=== PATIENT | male | born 1980 | race Caucasian/White ===

== ENCOUNTER 2018-04-28 19:27 | Inpatient (IN) | payer OTHER ==
[2018-04-28] MEDS ORDERED: SODIUM CHLORIDE 0.9% 1,000 ML IV STA (20:05)
[2018-04-28] MEDS ORDERED: LORazepam 2 MG/ML INJ IV PRN (20:08)
[2018-04-28] MEDS ORDERED: THIAMINE 100 MG/ML 2 ML VIAL IM STA (20:08)
[2018-04-28] MEDS: THIAMINE 100 MG TAB PO SCH (20:18)
[2018-04-28] MEDS: LORazepam 2 MG/ML INJ IV PRN ×3 (20:19→22:20)
[2018-04-28 20:29] LABS: Basophils % (A) 1 %; Eosinophils % (A) 2 %; HCT 45.3 % (39.0-53.0); HGB 15.3 gm/dL (13.0-17.5); Lymphocytes # (A) 1.2 k/uL (1.0-4.8); Lymphocytes % (A) 32 %; MCH 34.4 pg (25.0-35.0); MCHC 33.8 g/dL (31.0-37.0); MCV 101.6 fL (80.0-100.0); Macrocytosis Slight; Monocytes # (A) 0.2 k/uL (0-1.0); Monocytes % (A) 5 %; Neutrophils # (A) 2.3 k/uL (1.3-7.7); Neutrophils % (A) 59 %; Platelet Count 53 k/uL (150-450); RBC 4.46 m/uL (4.30-5.90); RDW 15.5 % (11.5-15.5); WBC 3.9 k/uL (3.8-10.6)
[2018-04-28 20:30] LABS: Basophils # (A) 0.1 k/uL (0-0.2); Eosinophils # (A) 0.1 k/uL (0-0.7)
[2018-04-28 20:38] LABS: INR 0.9 (<1.2); Prothrombin Time 10.2 sec (9.0-12.0)
--- NOTE | 2018-04-28 20:47 | ED ---
Alcohol HPI - General Chief Complaint: Alcohol Stated Complaint: Alcohol Withdrawls Time Seen by Provider: 04/28/18 19:47 Source: patient, family Mode of arrival: ambulatory Limitations: no limitations - History of Present Illness Initial Comments: Patient is a 38-year-old male presenting for alcohol withdrawal. The patient states that he has been drinking for about 20 years and that he drinks a fifth and pint daily. He states that his last drink was about 13 hours ago and he has been shaking and having some shortness of breath as well as nausea. He states that he has had a seizure before and then put in ICU but never been intubated. - Related Data Home Medications Medication Instructions Recorded Confirmed No Known Home Medications 04/28/18 04/28/18 Allergies Allergy/AdvReac Type Severity Reaction Status Date / Time No Known Allergies Allergy Verified 04/28/18 19:43 Review of Systems ROS Statement: Those systems with pertinent positive or pertinent negative responses have been documented in the HPI. Constitutional: Negative for chills, fatigue and fever. HENT: Negative for congestion. Respiratory: Negative for chest tightness, shortness of breath and wheezing. Negative for cough Cardiovascular: Negative for chest pain and palpitations. Positive for shortness of breath Gastrointestinal: Negative for abdominal pain. Negative for abdominal distention , diarrhea, nausea and vomiting. Genitourinary: Negative for dysuria. Musculoskeletal: Negative for back pain, neck pain and neck stiffness. Skin: Negative for color change. Neurological: Negative for dizziness, speech difficulty, weakness and light- headedness. Positive for tremors Psychiatric/Behavioral: Negative for agitation and confusion. Negative for anxiety ROS Other: All systems not noted in ROS Statement are negative. Past Medical History Past Medical History: No Reported History History of Any Multi-Drug Resistant Organisms: None Reported Past Surgical History: Appendectomy, Tonsillectomy Past Psychological History: No Psychological Hx Reported Smoking Status: Never smoker Past Alcohol Use History: Abuse Past Drug Use History: None Reported General Exam - General Exam Comments Initial Comments: Constitutional: Pt is oriented to person, place, and time. Pt appears well- developed and well-nourished. No distress. HENT: Head: Normocephalic and atraumatic. Eyes: EOM are normal. Neck: Normal range of motion. Neck supple. Cardiovascular: Tachycardia, regular rhythm, S1 normal, S2 normal and normal heart sounds. Exam reveals no gallop and no friction rub. No murmur heard. Pulmonary/Chest: Effort normal and breath sounds normal. No tachypnea and no bradypnea. No respiratory distress. No wheezes or rales noted. Abdominal: Soft. Bowel sounds are normal. Pt exhibits no shifting dullness, no distension, no pulsatile liver, no fluid wave, no abdominal bruit and no ascites. There is no tenderness. There is no rigidity, no rebound, no guarding, no tenderness at McBurney's point and negative Burns's sign. Musculoskeletal: Normal range of motion. Neurological: Pt is alert and oriented to person, place, and time. No cranial nerve deficit. Patient is tremulous Skin: Skin is warm and dry. No rash noted. Pt is not diaphoretic. No erythema. No pallor. Psychiatric: Pt has a normal mood and affect. Pt behavior is normal. Thought content normal. Limitations: no limitations Course Vital Signs 04/28/18 04/28/18 04/28/18 19:28 20:57 21:01 Temperature 98.5 F Pulse Rate 77 170 H 163 H Respiratory 20 18 Rate Blood Pressure 122/84 110/80 116/102 O2 Sat by Pulse 95 94 L Oximetry 04/28/18 04/28/18 04/28/18 21:15 22:21 22:37 Temperature Pulse Rate 158 H 160 H 158 H Respiratory 18 18 Rate Blood Pressure 116/102 104/79 113/92 O2 Sat by Pulse 94 L 95 Oximetry 04/28/18 04/28/18 22:56 23:15 Temperature Pulse Rate 170 H Respiratory 24 19 Rate Blood Pressure 98/81 O2 Sat by Pulse 91 L Oximetry - Reevaluation(s) Reevaluation #1: 04/28/18 20:46 EKG shows atrial fibrillation with RVR. Heart rate is 183, QRS 92, QTC 439. There are no significant ST depressions or elevations. Reevaluation #2: 04/29/18 00:13 -discussed the case with admitting physician bedside and it was recommended that is unclear be increased. His also discussed with administrative charge nurse and it was agreeable that the patient could be admitted to [facility] and did not need ICU admission as his blood pressure is stable. Medical Decision Making - Medical Decision Making Case is discussed originally with cardiology, , and it was recommended that the patient not be cardioverted as it is unclear when the A. fib with RVR initiated. 3 doses of metoprolol were given and patient continued to remain in atrial fibrillation with RVR. Therefore patient was put on Cardizem drip. Patient continued to remain in A. fib with RVR but case is discussed with admitting physician, Dr. Foster and it was agreed that rate of Cardizem could be increased as well. At the time of disposition, the withdrawal type symptoms had improved in that he was no longer tremulous. - Lab Data Result diagrams: 04/28/18 20:04 04/28/18 20:04 Lab Results 04/28/18 04/28/18 04/28/18 Range/Units 20:04 20:04 20:04 WBC 3.9 (3.8-10.6) k/uL RBC 4.46 (4.30-5.90) m/uL Hgb 15.3 (13.0-17.5) gm/dL Hct 45.3 (39.0-53.0) % MCV 101.6 H (80.0-100.0) fL MCH 34.4 (25.0-35.0) pg MCHC 33.8 (31.0-37.0) g/dL RDW 15.5 (11.5-15.5) % Plt Count 53 L (150-450) k/uL Neutrophils % 59 % Lymphocytes % 32 % Monocytes % 5 % Eosinophils % 2 % Basophils % 1 % Neutrophils # 2.3 (1.3-7.7) k/uL Lymphocytes # 1.2 (1.0-4.8) k/uL Monocytes # 0.2 (0-1.0) k/uL Eosinophils # 0.1 (0-0.7) k/uL Basophils # 0.1 (0-0.2) k/uL Macrocytosis Slight PT 10.2 (9.0-12.0) sec INR 0.9 (<1.2) Sodium 143 (137-145) mmol/L Potassium 4.5 (3.5-5.1) mmol/L Chloride 108 H (98-107) mmol/L Carbon Dioxide 18 L (22-30) mmol/L Anion Gap 17 mmol/L BUN 19 (9-20) mg/dL Creatinine 0.93 (0.66-1.25) mg/dL Est GFR (CKD-EPI)AfAm >90 (>60 ml/min/1.73 sqM) Est GFR (CKD-EPI)NonAf >90 (>60 ml/min/1.73 sqM) Glucose 152 H (74-99) mg/dL Calcium 8.3 L (8.4-10.2) mg/dL Magnesium 1.5 L (1.6-2.3) mg/dL Total Bilirubin 2.0 H (0.2-1.3) mg/dL AST 590 H (17-59) U/L ALT 358 H (21-72) U/L Alkaline Phosphatase 106 (38-126) U/L Troponin I (0.000-0.034) ng/mL Total Protein 7.9 (6.3-8.2) g/dL Albumin 4.1 (3.5-5.0) g/dL Lipase 345 H (23-300) U/L Serum Alcohol 366 H* mg/dL 04/28/18 Range/Units 20:04 WBC (3.8-10.6) k/uL RBC (4.30-5.90) m/uL Hgb (13.0-17.5) gm/dL Hct (39.0-53.0) % MCV (80.0-100.0) fL MCH (25.0-35.0) pg MCHC (31.0-37.0) g/dL RDW (11.5-15.5) % Plt Count (150-450) k/uL Neutrophils % % Lymphocytes % % Monocytes % % Eosinophils % % Basophils % % Neutrophils # (1.3-7.7) k/uL Lymphocytes # (1.0-4.8) k/uL Monocytes # (0-1.0) k/uL Eosinophils # (0-0.7) k/uL Basophils # (0-0.2) k/uL Macrocytosis PT (9.0-12.0) sec INR (<1.2) Sodium (137-145) mmol/L Potassium (3.5-5.1) mmol/L Chloride (98-107) mmol/L Carbon Dioxide (22-30) mmol/L Anion Gap mmol/L BUN (9-20) mg/dL Creatinine (0.66-1.25) mg/dL Est GFR (CKD-EPI)AfAm (>60 ml/min/1.73 sqM) Est GFR (CKD-EPI)NonAf (>60 ml/min/1.73 sqM) Glucose (74-99) mg/dL Calcium (8.4-10.2) mg/dL Magnesium (1.6-2.3) mg/dL Total Bilirubin (0.2-1.3) mg/dL AST (17-59) U/L ALT (21-72) U/L Alkaline Phosphatase (38-126) U/L Troponin I 0.040 H* (0.000-0.034) ng/mL Total Protein (6.3-8.2) g/dL Albumin (3.5-5.0) g/dL Lipase (23-300) U/L Serum Alcohol mg/dL Disposition Clinical Impression: Alcohol withdrawal Disposition: ADMITTED IP TO THIS HOSP Condition: Fair Instructions: Alcohol Withdrawal (ED) Referrals: None,Stated [Primary Care Provider] - 1-2 days Decision to Admit Reason: Admit from EC Decision Date: 04/29/18 Decision Time: 00:16
[2018-04-28] MEDS: METOPROLOL TARTRATE 5 MG/5 ML VIAL IVP SCH (20:54)
[2018-04-28 20:59] LABS: ALT 358 U/L (21-72); AST 590 U/L (17-59); Albumin 4.1 g/dL (3.5-5.0); Alkaline Phosphatase 106 U/L (38-126); Anion Gap 17 mmol/L; Blood Urea Nitrogen 19 mg/dL (9-20); Calcium 8.3 mg/dL (8.4-10.2); Carbon Dioxide 18 mmol/L (22-30); Chloride 108 mmol/L (98-107); Glucose 152 mg/dL (74-99); Lipase 345 U/L (23-300); Magnesium 1.5 mg/dL (1.6-2.3); Potassium 4.5 mmol/L (3.5-5.1); Sodium 143 mmol/L (137-145); Total Protein 7.9 g/dL (6.3-8.2)
[2018-04-28] MEDS ORDERED: METOPROLOL TARTRATE 5 MG/5 ML VIAL IVP PRN (21:13)
[2018-04-28 21:21] LABS: Alcohol 366 mg/dL
[2018-04-28] MEDS: DILTIAZEM 50 MG in SODIUM CHLORIDE 0.9% 40 ML IV SCH (22:14)
[2018-04-28] MEDS: DILTIAZEM DRIP BOLUS FROM BAG 1 MG SOLN IV ONE (22:14)
[2018-04-28] MEDS ORDERED: SODIUM CHLORIDE 0.9% 1,000 ML IV ONE (23:02)
[2018-04-28] MEDS ORDERED: ASPIRIN 81 MG PO STA (23:52)
[2018-04-29] MEDS: DILTIAZEM 50 MG in SODIUM CHLORIDE 0.9% 40 ML IV SCH ×7 (00:02→21:35)
[2018-04-29] MEDS: LORazepam 2 MG/ML INJ IV PRN ×12 (00:07→14:08)
[2018-04-29] MEDS ORDERED: NITROGLYCERIN SL TABS 0.4 MG TAB SUBLINGUAL PRN (00:17)
[2018-04-29 01:14] LABS: Creatine Kinase MB 8.7 ng/mL (0.0-2.4)
[2018-04-29 01:19] LABS: Troponin I 0.037 ng/mL (0.000-0.034)
[2018-04-29] MEDS: METOPROLOL TARTRATE 5 MG/5 ML VIAL IVP SCH ×3 (01:33→16:48)
[2018-04-29] MEDS: DILTIAZEM DRIP BOLUS FROM BAG 1 MG SOLN IV ONE (01:36)
--- NOTE | 2018-04-29 02:01 | P.HPIM ---
History of Present Illness H&P Date: 04/29/18 The patient is a 38 yo M with a PMH of EtOH abuse (hospitalized w/ DTs in 2017 at a hospital in [place] w/ withdrawal seizures) presented to the ED due to chest pain, SOB, palpitations, and tremors. The patient notes that he had been drinking 1 pint and a fifth of Vodka daily for the past month after his friend committed suicide. He notes that after his previous hospitalization in 2017, he was sober for 2 months before his friends . His last drink was 14 hours prior to presentation and he then became tremulous and began hallucinating with subsequent chest pain, substernal, 10/31, with radiation to L arm, worsened with exertion, with associated SOB and palpitations. The patient notes that he had similar symptoms during his previous DTs episode and was noted to be in A-fib though was never stared on anticoagulation since it was deemed to be a single episode secondary to DTs. The patient endorsed a cough for the past 1 week with some greenish phelgm but otherwise an unlimited ET and denied orthopnea, PND, fever, chills, nausea, vomiting, diarrhea, recent travel , or sick contacts. In the ED, the patient had a comprehensive workup. EKG showed A-fib with RVR @ 183 bpm; Troponin 0.040; Lipase 345; T Bili 2.0; AST 590; ALT 358; and platelets 53. Review of Systems Pertinent positives and negatives as discussed in HPI, a complete review of systems was performed and all other systems are negative. Past Medical History Past Medical History: No Reported History History of Any Multi-Drug Resistant Organisms: None Reported Past Surgical History: Appendectomy, Tonsillectomy Past Psychological History: No Psychological Hx Reported Smoking Status: Never smoker Past Alcohol Use History: Abuse Past Drug Use History: None Reported Medications and Allergies Home Medications Medication Instructions Recorded Confirmed Type No Known Home Medications 04/28/18 04/28/18 History Allergies Allergy/AdvReac Type Severity Reaction Status Date / Time No Known Allergies Allergy Verified 04/28/18 19:43 Physical Exam Vitals: Vital Signs Temp Pulse Resp BP Pulse Ox 04/28/18 23:15 19 04/28/18 22:56 170 H 24 98/81 91 L 04/28/18 22:37 158 H 18 113/92 95 04/28/18 22:21 160 H 104/79 04/28/18 21:15 158 H 18 116/102 94 L 04/28/18 21:01 163 H 116/102 04/28/18 20:57 170 H 18 110/80 94 L 04/28/18 19:28 98.5 F 77 20 122/84 95 Intake and Output 04/28/18 04/28/18 04/29/18 14:59 22:59 06:59 Intake Total 18 Balance 18 Intake: Intake, IV Titration 18 Amount Diltiazem 50 mg In Sodium 18 Chloride 0.9% 40 ml @ Per Protocol IV .Q0M [facility] Rx#:[id number] Other: Weight 121.109 kg General: [non toxic], [no distress], [appears at stated age], [obese], tremulous Derm: [no unusual rashes/lesions] [no unusual ecchymoses], [warm], [dry] Head: [atraumatic], [normocephalic], [symmetric] Eyes: [EOMI], [no lid lag], [anicteric sclera], [pupils equal round reactive to light] ENT: [Nose and ears atraumatic], [no thrush], [no pharyngeal erythema] Neck: [No thyromegaly], [no cervical lymphadenopathy], [trachea midline], [ supple] Mouth: [no lip lesion], [mucus membranes moist] Cardiovascular: [S1S2 wnl, irregularly irregular tachycardia], [no murmur], [ positive posterior tibial pulse bilateral], [no edema], [capillary refill less than 2 seconds] Lungs: [CTA bilateral], [no rhonchi, no rales] , [no accessory muscle use] Abdominal: [soft], [ nontender to palpation], [no guarding], [no appreciable organomegaly], [normal bowel sounds] Ext: [no gross muscle atrophy], [muscle strength 5 out of 5 in all 4 extremities grossly], [no contractures], 1+ LE edema to knees fransico Neuro: [ CN II-XI grossly intact], [light touch intact all 4 extremities], out- stretched hand tremor, mild tongue fasciculations Psych: [Alert], [oriented], [appropriate affect] Results CBC & Chem 7: 04/28/18 20:04 04/28/18 20:04 Labs: Abnormal Lab Results - Last 24 Hours (Table) 04/28/18 04/28/18 04/28/18 Range/Units 20:04 20:04 20:04 MCV 101.6 H (80.0-100.0) fL Plt Count 53 L (150-450) k/uL Chloride 108 H (98-107) mmol/L Carbon Dioxide 18 L (22-30) mmol/L Glucose 152 H (74-99) mg/dL Calcium 8.3 L (8.4-10.2) mg/dL Magnesium 1.5 L (1.6-2.3) mg/dL Total Bilirubin 2.0 H (0.2-1.3) mg/dL AST 590 H (17-59) U/L ALT 358 H (21-72) U/L Total Creatine Kinase (55-170) U/L CK-MB (CK-2) (0.0-2.4) ng/mL Troponin I 0.040 H* (0.000-0.034) ng/mL Lipase 345 H (23-300) U/L Serum Alcohol 366 H* mg/dL 04/29/18 Range/Units 00:20 MCV (80.0-100.0) fL Plt Count (150-450) k/uL Chloride (98-107) mmol/L Carbon Dioxide (22-30) mmol/L Glucose (74-99) mg/dL Calcium (8.4-10.2) mg/dL Magnesium (1.6-2.3) mg/dL Total Bilirubin (0.2-1.3) mg/dL AST (17-59) U/L ALT (21-72) U/L Total Creatine Kinase 345 H (55-170) U/L CK-MB (CK-2) 8.7 H (0.0-2.4) ng/mL Troponin I 0.037 H* (0.000-0.034) ng/mL Lipase (23-300) U/L Serum Alcohol mg/dL Assessment and Plan Plan: A-fib with RVR -Received Lopressor and Cardizem IVP in the ED -C/w Cardizem infusion Chest pain w/ SOB -Likely secondary to RVR -Trend troponins -Cardiology consult -Telemetry monitoring Alcohol withdrawal with deranged LFTs -CIWA protocol -Thiamine, Folate, MV -Aspiration, Seizure, Fall precautions -RUQ US Hypomagnasemia -Will replace and monitor Thrombocytopenia -Likely due to alcohol abuse -Will monitor DVT//GI prophylaxis - IPCDs - No indication for GI prophylaxis The patient is admitted with an anticipated greater than 2 midnight stay for evaluation of Afib w/ RVR CODE STATUS:Full-code Discussed with: Patient Anticipated discharge date: 05/02/[address]: Home A total of 65 minutes was spent on the care of this complex patient more than 50 % of the time was spent in counseling and care coordination.
[2018-04-29] MEDS: MAGNESIUM SULFATE-D5W PMX 1 GM in DEXTROSE/WATER 1 100ML.BAG IVPB SCH ×4 (02:36→16:43)
[2018-04-29 04:00] LABS: Appearance,Urine Clear (Clear); Bilirubin,Urine 2+ (Negative); Blood,Urine Moderate (Negative); Color,Urine Dark Brown; Glucose,Urine (UA) Negative (Negative); Hyaline Casts,Urine 4 /lpf (0-2); Ketones,Urine Negative (Negative); Leukocyte Esterase,Urine Negative (Negative); Mucus,Urine Many /hpf; Nitrite,Urine Negative (Negative); Protein,Urine 4+ (Negative); RBC,Urine <1 /hpf (0-5); Specific Gravity,Urine 1.037 (1.001-1.035); Squamous Epithelial Cell,Urine 1 /hpf (0-4); WBC,Urine 1 /hpf (0-5)
[2018-04-29] MEDS: MULTIVITAMINS, THERA 1 EACH TAB PO SCH (07:45)
[2018-04-29] MEDS: FOLIC ACID 1 MG TAB PO SCH (07:46)
[2018-04-29] MEDS: THIAMINE 100 MG TAB PO SCH ×2 (07:46→16:44)
[2018-04-29] MEDS: METOPROLOL TARTRATE 25 MG TAB PO SCH ×2 (07:46→21:34)
--- NOTE | 2018-04-29 08:12 | US ---
EXAMINATION TYPE: US abdomen limited DATE OF EXAM: 04/29/2018 COMPARISON: NONE CLINICAL HISTORY: RUQ US, deranged LFTs. h/o pancreatitis and alcoholism, RUQ pain EXAM MEASUREMENTS: Liver Length: 24.1 cm Gallbladder Wall: 0.5 cm CBD: 0.6 cm Right Kidney: 15.3 x 6.3 x 5.6 cm Pancreas: limited views were obscured by bowel gas Liver: grossly enlarged and heterogeneous, difficult to penetrate Gallbladder: possible sludge noted with wall thickening Evidence for sonographic Burns's sign: no CBD: wnl Right Kidney: large in size The pancreas is poorly visualized. The liver is enlarged measuring 24 cm. There is no biliary dilatation. There is sludge within the gallbladder. The gallbladder wall measures 5 mm. This common hepatic duct measures 6 mm. There is no sonographic Burns's sign. The right kidney is unremarkable. IMPRESSION: 1. HEPATOMEGALY AND PROBABLE FATTY INFILTRATION OF THE LIVER. 2. SLUDGE WITHIN THE GALLBLADDER WITH A THICKENED GALLBLADDER WALL.
[2018-04-29 08:55] LABS: HCT 40.2 % (39.0-53.0); HGB 13.2 gm/dL (13.0-17.5); MCH 34.5 pg (25.0-35.0); MCHC 32.7 g/dL (31.0-37.0); MCV 105.4 fL (80.0-100.0); Macrocytosis Moderate; Mean Platelet Volume 10.5; RBC 3.82 m/uL (4.30-5.90); RDW 15.6 % (11.5-15.5); WBC 3.7 k/uL (3.8-10.6)
[2018-04-29 08:56] LABS: ALT 285 U/L (21-72); AST 336 U/L (17-59); Albumin 3.5 g/dL (3.5-5.0); Alkaline Phosphatase 87 U/L (38-126); Anion Gap 13 mmol/L; Blood Urea Nitrogen 17 mg/dL (9-20); Calcium 7.9 mg/dL (8.4-10.2); Carbon Dioxide 20 mmol/L (22-30); Chloride 110 mmol/L (98-107); Glucose 89 mg/dL (74-99); Magnesium 1.8 mg/dL (1.6-2.3); Platelet Count 45 k/uL (150-450); Sodium 143 mmol/L (137-145); Total Bilirubin 2.2 mg/dL (0.2-1.3)
[2018-04-29 09:33] LABS: Troponin I 0.035 ng/mL (0.000-0.034)
[2018-04-29 11:33] LABS: Glucose,Whole Blood 95 mg/dL (75-99)
[2018-04-29] MEDS ORDERED: PROPOFOL 10 MG/ML 20 ML VIAL IV ONE (12:45)
[2018-04-29] MEDS ORDERED: SUCCINYLCHOLINE CHLORIDE VIAL 200 MG/10 ML VIAL IV ONE (12:45)
--- NOTE | 2018-04-29 13:13 | P.PN ---
Progress Note - Text Progress Note Date: 04/29/18 Patient is continuing to show signs of alcohol withdrawal, is severely shaking and requiring Ativan every hour. He continues to have shortness of breath and palpitations as well. No chest pain. No dizziness. No nausea or vomiting. Despite being on Cardizem 20 mg IV every hour his heart is continues to be elevated. I called Dr. Barahona and asked for the patient to be transferred to ICU for possible Ativan drip.
--- NOTE | 2018-04-29 13:16 | XR ---
EXAMINATION TYPE: XR chest 1V portable DATE OF EXAM: 04/29/2018 HISTORY: et tube placement. REFERENCE: NONE. FINDINGS: The patient has been intubated. ET tube tip is 7.6 cm from the jose. An NG tube is been p assed and its tip is in the stomach. The heart appears enlarged. There is vascular congestion. I could not exclude mild edema. There is in creased opacity at both lung bases. This may BE due to overlying soft tissues. It would be difficult to exclude bibasilar airspace disease. It would be difficult to exclude small effusions. IMPRESSION: 1. SATISFACTORY ET TUBE PLACEMENT. 2. CARDIOMEGALY. 3. VASCULAR CONGESTION. 4. I COULD NOT EXCLUDE SOME DEGREE OF CONGESTIVE HEART FAILURE. 5. I CANNOT EXCLUDE BIBASILAR INFILTRATES. 6. I CANNOT EXCLUDE SMALL, BILATERAL EFFUSIONS.
[2018-04-29] MEDS ORDERED: CISATRACURIUM 2 MG/ML 5 ML VIAL IV ONE ×3 (13:39→14:49)
[2018-04-29 13:56] LABS: ABG Base Excess -2.9 mmol/L; ABG HCO3 24 mmol/L (21-25); ABG Oxygen Saturation 94.9 % (94-97); ABG PCO2 55 mmHg (35-45); ABG PH 7.25 (7.35-7.45); ABG PO2 92 mmHg (83-108); ABG TCO2 26 mmol/L (19-24)
[2018-04-29] MEDS ORDERED: DILTIAZEM DRIP BOLUS FROM BAG 1 MG SOLN IV ONE (14:12)
[2018-04-29] MEDS: fentaNYL (PF) 2,500 MCG in SODIUM CHLORIDE 0.9% 200 ML IV SCH (14:25)
[2018-04-29] MEDS: DIGOXIN 250 MCG/ML 2 ML AMP IVP SCH ×2 (14:41→18:41)
--- NOTE | 2018-04-29 14:43 | XR ---
EXAMINATION TYPE: XR chest 1V portable DATE OF EXAM: 04/29/2018 COMPARISON: 04/29/2018 HISTORY: Short of breath TECHNIQUE: Single frontal view of the chest is obtained. FINDINGS: Heart is enlarged. Endotracheal tube is 4 cm from the jose. Nasogastric tube appears in good position. There is pulmonary vascular congestion. There are chest leads. IMPRESSION: Congestive heart failure with pulmonary edema and basilar pulmonary infiltrates unchange d compared to exam 12 hours ago.
[2018-04-29] MEDS ORDERED: FUROSEMIDE 10 MG/ML 4 ML VIAL IV STA (14:50)
[2018-04-29] MEDS ORDERED: LORazepam 2 MG/ML INJ IV STA (14:59)
[2018-04-29] MEDS: CISATRACURIUM 200 MG in SODIUM CHLORIDE 0.9% 180 ML IV SCH (15:00)
[2018-04-29] MEDS: ARTIFICIAL TEARS-HYPROMELLOSE DROPS 15 ML BTL BOTH EYES SCH ×2 (15:32→21:34)
[2018-04-29] MEDS: PROPOFOL 1,000 MG in EMPTY BAG 1 BAG IV SCH ×6 (15:35→23:55)
[2018-04-29] MEDS: SODIUM CHLORIDE 0.9% 1,000 ML IV SCH (15:51)
[2018-04-29] MEDS ORDERED: NALOXONE 0.4 MG/ML 1 ML VIAL IV PRN (16:19)
[2018-04-29 17:34] LABS: ABG Base Excess -0.1 mmol/L; ABG HCO3 27 mmol/L (21-25); ABG Oxygen Saturation 98.4 % (94-97); ABG PCO2 59 mmHg (35-45); ABG PH 7.27 (7.35-7.45); ABG PO2 129 mmHg (83-108); ABG TCO2 29 mmol/L (19-24)
--- NOTE | 2018-04-29 17:44 | P.CNPUL ---
History of Present Illness Consult date: 04/29/18 Requesting physician: Moses Foster Reason for consult: other (Acute alcohol withdrawal) Chief complaint: Shaking shortness of breath and nausea. History of present illness: This is a 38-year-old white male, known history of alcohol abuse, known history of previous alcohol withdrawal and delirium tremens in December of 2017, and he was admitted to the hospital in [place]. Patient also had history of seizures related to alcohol withdrawal. He presented to the ER yesterday mostly with symptoms of shortness of breath, palpitations, shortness of breath, and tremors. Apparently the patient has been drinking at least 1 minute and a fifth of vodka daily for the past 1 month. Risks and felt to be related to the fact that one of his friends committed suicide. Apparently the patient was sober for 2 months before his friend's . His last drink was about 14 hours prior to presentation to the hospital. Then he presented with tremulousness, he was hallucinating, he was complaining of substernal chest pain with radiation to the left arm. Patient was initially admitted to the cardiac floor, however I was notified by the admitting physician early this morning that the patient is not doing well. He was getting more and more agitated, his ciwa score has been high, and the patient has been receiving significant amount of Ativan without helping much. He also developed atrial fibrillation with RVR, and he was seen by cardiology, placed on Cardizem drip. Presently on 20 mg per hour of Cardizem. He was also given digoxin per cardiology, and given 2 doses of metoprolol. Upon arrival to the ICU, the patient remained extremely agitated, and he was in atrial fibrillation with RVR , rate in the range of 170 -180 bpm. Hence I recommended immediate intubation , patient was placed on propofol, given more Ativan, remained extremely agitated , fentanyl was added, remains agitated, and there was difficulty ventilating the patient, hence I recommended that the patient gets Nimbex and he was paralyzed. Chest x-ray post intubation showed evidence of interstitial edema. His heart was noted to be enlarged, and I had a feeling that the patient may have underlying cardiomyopathy and LV dysfunction related to alcoholism. Echocardiogram is pending at the time of my dictation. Underlying infiltrates could not be entirely ruled out based on the chest x-ray findings. Troponin on admission was 0.040, and follow-up troponin was 0.035. Liver enzymes were noted to be elevated, ultrasound of the abdomen and liver showed hepatomegaly and fatty infiltration of the liver. Sludge within the gallbladder and a thickened wall. While on mechanical ventilation, his ventilator settings were noted to be as follows tidal volume of 500, assist control rate of 20, FiO2 of 100%, and PEEP of 8. Repeat ABG is pending after the change was made on the ventilator settings. Left radial arterial line was placed shortly after the patient arrived to the ICU. Patient will likely have frequent blood gases in the next 24 hours. Review of Systems ROS unobtainable: due to endotracheal tube Past Medical History Past Medical History: No Reported History Additional Past Medical History / Comment(s): pt states no medical history History of Any Multi-Drug Resistant Organisms: None Reported Past Surgical History: Appendectomy, Tonsillectomy Past Anesthesia/Blood Transfusion Reactions: No Reported Reaction Past Psychological History: No Psychological Hx Reported Smoking Status: Never smoker Past Alcohol Use History: Abuse Past Drug Use History: None Reported Medications and Allergies Home Medications Medication Instructions Recorded Confirmed Type No Known Home Medications 04/28/18 04/28/18 History Allergies Allergy/AdvReac Type Severity Reaction Status Date / Time No Known Allergies Allergy Verified 04/28/18 19:43 Physical Exam Vitals: Vital Signs Temp Pulse Pulse Resp BP BP Pulse Ox 04/29/18 15:30 161 H 23 112/75 93 L 04/29/18 15:00 168 H 22 122/78 93 L 04/29/18 14:30 168 H 33 H 141/101 90 L 04/29/18 14:00 161 H 22 117/91 92 L 04/29/18 13:30 156 H 21 116/77 89 L 04/29/18 13:00 168 H 23 126/98 94 L 04/29/18 12:40 168 H 32 H 120/96 95 04/29/18 12:20 140 H 31 H 120/96 04/29/18 12:00 161 H 27 H 120/96 94 L 04/29/18 11:55 98.3 F 174 H 36 H 94 L 04/29/18 10:45 157 H 16 121/77 94 L 04/29/18 08:00 97.9 F 169 H 16 141/72 97 04/29/18 04:00 97.9 F 130 H 19 104/83 94 L 04/29/18 03:13 130 H 104/83 04/29/18 03:03 104 H 20 04/29/18 01:50 146 H 24 101/88 91 L 04/29/18 01:46 98.2 F 150 H 22 101/88 95 04/29/18 01:40 172 H 24 99/88 87 L 04/29/18 01:30 156 H 22 99/84 90 L 04/29/18 01:20 170 H 26 H 99/84 96 04/29/18 01:10 165 H 27 H 92 L 04/29/18 01:00 161 H 28 H 105/92 93 L 04/29/18 00:50 165 H 23 105/92 84 L 04/29/18 00:40 176 H 32 H 118/94 04/29/18 00:35 97.7 F 104 H 20 113/74 93 L 04/29/18 00:30 158 H 33 H 99/72 95 04/29/18 00:20 161 H 25 H 112/100 96 04/29/18 00:10 154 H 32 H 101/49 96 04/29/18 00:00 152 H 28 H 108/89 94 L 04/28/18 23:50 152 H 30 H 124/104 04/28/18 23:40 160 H 20 104/87 95 04/28/18 23:30 158 H 17 107/93 94 L 04/28/18 23:20 151 H 32 H 126/87 04/28/18 23:15 19 04/28/18 23:10 168 H 35 H 111/69 90 L 04/28/18 23:00 156 H 14 98/81 89 L 04/28/18 22:56 170 H 24 98/81 91 L 04/28/18 22:50 170 H 24 118/85 04/28/18 22:40 154 H 29 H 113/92 89 L 04/28/18 22:37 158 H 18 113/92 95 04/28/18 22:30 165 H 35 H 135/109 89 L 04/28/18 22:21 160 H 104/79 04/28/18 22:20 160 H 20 114/86 93 L 04/28/18 22:10 160 H 32 H 100/70 94 L 04/28/18 22:00 149 H 24 113/83 81 L 01/05/19 21:50 154 H 23 93/81 92 L 04/28/18 21:40 156 H 30 H 146/129 92 L 04/28/18 21:30 168 H 31 H 107/81 96 04/28/18 21:20 174 H 32 H 116/106 93 L 04/28/18 21:15 158 H 18 116/102 94 L 04/28/18 21:10 158 H 32 H 66/44 91 L 04/28/18 21:01 163 H 116/102 04/28/18 21:00 184 H 9 L 110/80 93 L 04/28/18 20:57 170 H 18 110/80 94 L 04/28/18 20:50 184 H 17 99/78 94 L 04/28/18 20:40 176 H 25 H 87/68 91 L 04/28/18 20:30 168 H 24 110/56 89 L 04/28/18 20:20 184 H 19 110/56 89 L 04/28/18 20:10 110/56 91 L 04/28/18 20:07 91 L 04/28/18 19:28 98.5 F 77 20 122/84 95 Intake and Output 04/29/18 04/29/18 04/29/18 06:59 14:59 22:59 Intake Total 117.167 126 206.583 Output Total 300 575 50 Balance -182.833 -449 156.583 Intake: IV 30 100 0.9NS 30 100 Intake, IV Titration 117.167 96 106.583 Amount Diltiazem 50 mg In Sodium 117.167 96 Chloride 0.9% 40 ml @ Per Protocol IV .Q0M [facility] Rx#:[id number] Propofol 1,000 mg In 100 Empty Bag 1 bag @ Titrate IV .Q0M [facility] Rx#: [id number] fentaNYL (PF) 2,500 mcg 6.583 In Sodium Chloride 0.9% 200 ml @ 50 MCG/HR 5 mls/ hr IV .Q24H [facility] Rx#: [id number] Output: Urine 300 575 50 Other: Voiding Method Urinal Urinal Weight 135.2 kg 135.2 kg Physical Exam: Revealed a 58-year-old white male, obese, sedated, paralyzed, on mechanical ventilation. Head: Atraumatic normocephalic. HEENT:[Neck is supple.] [No neck masses.] [No thyromegaly.] [No JVD.] PERRLA, EOMI, no icterus. Chest: [Crackles at the bases, no rhonchi and no wheezes. Symmetrical chest expansion.] Cardiac Exam: [Tachycardic, irregular. Normal S1 and S2, no S3 gallop, no murmur.] Abdomen: [East, Soft, nontender, no megaly, no rebound, no guarding, normal bowel sounds.] Extremities: [No clubbing, 1+ bipedal edema, no cyanosis.] Neurological Exam: Cannot be assessed, patient is sedated, paralyzed, on propofol, Nimbex, and fentanyl. Skin: No rashes. Psychiatric: Cannot be assessed, however according to the admitting physician and he was anxious, and extremely agitated. Prior to intubation Results - Laboratory Findings CBC and BMP: 04/29/18 07:33 04/29/18 07:33 ABG ABG pH 7.25 (7.35-7.45) L 04/29/18 13:54 ABG pCO2 55 mmHg (35-45) H 04/29/18 13:54 ABG pO2 92 mmHg (83-108) 04/29/18 13:54 ABG O2 Saturation 94.9 % (94-97) 04/29/18 13:54 PT/INR, D-dimer PT 10.2 sec (9.0-12.0) 04/28/18 20:04 INR 0.9 (<1.2) 04/28/18 20:04 Abnormal lab findings: Abnormal Labs 04/28/18 04/28/18 04/28/18 20:04 20:04 20:04 WBC RBC MCV 101.6 H RDW Plt Count 53 L ABG pH ABG pCO2 ABG Total CO2 Chloride 108 H Carbon Dioxide 18 L Glucose 152 H Calcium 8.3 L Magnesium 1.5 L Total Bilirubin 2.0 H AST 590 H ALT 358 H Total Creatine Kinase CK-MB (CK-2) Troponin I 0.040 H* Lipase 345 H Ur Specific [place] Urine Protein Urine Blood Urine Bilirubin Hyaline Casts Urine Mucus Serum Alcohol 366 H* 04/29/18 04/29/18 04/29/18 00:20 03:22 07:33 WBC RBC MCV RDW Plt Count ABG pH ABG pCO2 ABG Total CO2 Chloride Carbon Dioxide Glucose Calcium Magnesium Total Bilirubin AST ALT Total Creatine Kinase 345 H 252 H CK-MB (CK-2) 8.7 H 6.0 H Troponin I 0.037 H* 0.035 H* Lipase Ur Specific [place] 1.037 H Urine Protein 4+ H Urine Blood Moderate H Urine Bilirubin 2+ H Hyaline Casts 4 H Urine Mucus Many H Serum Alcohol 04/29/18 04/29/18 04/29/18 07:33 07:33 13:54 WBC 3.7 L RBC 3.82 L MCV 105.4 H RDW 15.6 H Plt Count 45 L ABG pH 7.25 L ABG pCO2 55 H ABG Total CO2 26 H Chloride 110 H Carbon Dioxide 20 L Glucose Calcium 7.9 L Magnesium Total Bilirubin 2.2 H AST 336 H ALT 285 H Total Creatine Kinase CK-MB (CK-2) Troponin I Lipase Ur Specific [place] Urine Protein Urine Blood Urine Bilirubin Hyaline Casts Urine Mucus Serum Alcohol - Diagnostic Findings Chest x-ray: image reviewed (Chest x-ray is suggestive of pulmonary edema, most likely cardiogenic, underlying infiltrate is not entirely ruled out, but felt to be less likely.) Assessment and Plan Assessment: Impression: 1 acute hypoxic respiratory failure secondary to delirium tremens, pulmonary edema, felt to be cardiogenic unless for otherwise, atrial fibrillation with RVR. 2 atrial fibrillation with RVR, being followed by cardiology, presently on Cardizem drip, received also Lopressor, and received digoxin. 3 suspect underlying alcoholic cardiomyopathy, echocardiogram is pending. 4 acute alcohol withdrawal and delirium tremens 5 hypomagnesemia being corrected. 6 thrombocytopenia related to alcohol abuse and underlying liver disease. 7 possibility of underlying pneumonia is not entirely ruled out, but felt to be less likely, I will empirically cover the patient with antibiotics. Recommendation: Continue ventilatory support, continue Cardizem, fentanyl, propofol, Nimbex, follow the protocol for muscle paralysis. Consider stopping Nimbex in the morning or later today depending on his overall clinical status. Ordered echocardiogram, ordered proBNP level, placed a left radial arterial line. Discussed his condition with his mother who is a retired ICU nurse. She is very well aware of his critical condition. Prognosis is definitely guarded at this point. We'll continue to follow closely. Continue GI and DVT prophylaxis. Patient has low platelets, hence we'll use Venodyne boots. Time with Patient: Greater than 30 (Critical care time is 55 minutes, not considering time spent on procedures.)
[2018-04-29] MEDS ORDERED: METOPROLOL TARTRATE 5 MG/5 ML VIAL IVP PRN ×2 (18:07→18:15)
[2018-04-29] MEDS: FUROSEMIDE 10 MG/ML 4 ML VIAL IV SCH (18:38)
[2018-04-29] MEDS: IPRATROPIUM-ALBUTEROL 3 ML NEB INHALATION SCH ×2 (19:55→23:37)
[2018-04-29 20:26] LABS: ABG Base Excess 3.1 mmol/L; ABG HCO3 28 mmol/L (21-25); ABG PCO2 43 mmHg (35-45); ABG PH 7.41 (7.35-7.45); ABG PO2 160 mmHg (83-108); ABG TCO2 29 mmol/L (19-24)
[2018-04-29] MEDS: PIPERACILLIN-TAZOBACTAM 3.375 GM in SODIUM CHLORIDE 0.9% 100 ML IVPB SCH (21:34)
[2018-04-29] MEDS ORDERED: DEXTROSE 5% IN WATER 100 ML with AMIODARONE 150 MG IV ONE (22:17)
[2018-04-29] MEDS: CHLORHEXIDINE GLUCONATE 15 ML CUP MUCOUS MEM SCH (22:24)
[2018-04-29] MEDS: AMIODARONE 450 MG in DEXTROSE 5% IN WATER 250 ML IV SCH ×2 (22:52)
[2018-04-30] MEDS: ARTIFICIAL TEARS-HYPROMELLOSE DROPS 15 ML BTL BOTH EYES SCH ×5 (00:32→16:40)
[2018-04-30] MEDS: DIGOXIN 250 MCG/ML 2 ML AMP IVP SCH ×2 (00:32→10:42)
[2018-04-30] MEDS: HEPARIN SODIUM,PORCINE 5,000 UNIT/ML 1 ML VIAL SQ SCH ×4 (00:33→23:12)
[2018-04-30] MEDS: PIPERACILLIN-TAZOBACTAM 3.375 GM in SODIUM CHLORIDE 0.9% 100 ML IVPB SCH ×4 (00:38→23:09)
[2018-04-30] MEDS: SODIUM CHLORIDE 0.9% 1,000 ML IV SCH ×3 (00:40→20:53)
[2018-04-30 00:42] LABS: Appearance,Urine Clear (Clear); Bilirubin,Urine Negative (Negative); Blood,Urine Negative (Negative); Color,Urine Light Yellow; Glucose,Urine (UA) Negative (Negative); Ketones,Urine Negative (Negative); Leukocyte Esterase,Urine Negative (Negative); Nitrite,Urine Negative (Negative); Protein,Urine Negative (Negative); Specific Gravity,Urine 1.006 (1.001-1.035); Urobilinogen,Urine <2.0 mg/dL (<2.0)
[2018-04-30] MEDS: PROPOFOL 1,000 MG in EMPTY BAG 1 BAG IV SCH ×11 (01:15→22:17)
[2018-04-30] MEDS: CISATRACURIUM 200 MG in SODIUM CHLORIDE 0.9% 180 ML IV SCH (01:43)
[2018-04-30] MEDS: IPRATROPIUM-ALBUTEROL 3 ML NEB INHALATION SCH ×6 (03:33→23:22)
[2018-04-30 04:23] LABS: Basophils # (A) 0.1 k/uL (0-0.2); Basophils % (A) 1 %; Eosinophils # (A) 0.2 k/uL (0-0.7); Eosinophils % (A) 5 %; HCT 39.9 % (39.0-53.0); HGB 12.6 gm/dL (13.0-17.5); Lymphocytes % (A) 29 %; MCH 32.9 pg (25.0-35.0); MCHC 31.7 g/dL (31.0-37.0); Macrocytosis Moderate; Mean Platelet Volume 10.3; Monocytes # (A) 0.1 k/uL (0-1.0); Monocytes % (A) 4 %; Neutrophils % (A) 59 %; RBC 3.84 m/uL (4.30-5.90); RDW 15.5 % (11.5-15.5); WBC 3.4 k/uL (3.8-10.6)
[2018-04-30 04:26] LABS: Anion Gap 6 mmol/L; Blood Urea Nitrogen 14 mg/dL (9-20); Calcium 7.2 mg/dL (8.4-10.2); Carbon Dioxide 28 mmol/L (22-30); Chloride 105 mmol/L (98-107); Cholesterol 192 mg/dL (<200); Glucose 89 mg/dL (74-99); HDL Cholesterol 69 mg/dL (40-60); LDL Cholesterol,Calculated 91 mg/dL (0-99); Magnesium 1.6 mg/dL (1.6-2.3); Phosphorus 4.8 mg/dL (2.5-4.5); Platelet Count 45 k/uL (150-450); Potassium 3.6 mmol/L (3.5-5.1); Sodium 139 mmol/L (137-145); Triglycerides 158 mg/dL (<150)
[2018-04-30] MEDS ORDERED: Magnesium Replacement Protocol 1 EACH MISC MISCELLANE PRN (05:02)
[2018-04-30] MEDS ORDERED: Potassium Replacement Protocol 1 EACH MISC MISCELLANE PRN (05:02)
[2018-04-30 05:17] LABS: ALT 215 U/L (21-72); AST 184 U/L (17-59); Alkaline Phosphatase 83 U/L (38-126); Total Bilirubin 2.5 mg/dL (0.2-1.3); Total Protein 6.2 g/dL (6.3-8.2)
[2018-04-30] MEDS: MAGNESIUM SULFATE-D5W PMX 1 GM in DEXTROSE/WATER 1 100ML.BAG IVPB SCH ×2 (05:18→06:41)
[2018-04-30] MEDS: AMIODARONE 450 MG in DEXTROSE 5% IN WATER 250 ML IV SCH ×6 (05:18→20:00)
[2018-04-30] MEDS: FUROSEMIDE 10 MG/ML 4 ML VIAL IV SCH ×2 (05:19→16:38)
[2018-04-30 05:36] LABS: ABG Base Excess 3.9 mmol/L; ABG HCO3 28 mmol/L (21-25); ABG PCO2 43 mmHg (35-45); ABG PH 7.43 (7.35-7.45); ABG PO2 78 mmHg (83-108); ABG TCO2 30 mmol/L (19-24)
[2018-04-30] MEDS ORDERED: POTASSIUM BICARBONATE/CIT AC 20 MEQ TABLET.EFF NG-TUBE SCH (06:00)
[2018-04-30 07:14] LABS: T4, Free (Free Thyroxine) 1.27 ng/dL (0.78-2.19)
--- NOTE | 2018-04-30 08:08 | XR ---
EXAMINATION TYPE: XR chest 1V DATE OF EXAM: 04/30/2018 COMPARISON: Prior chest x-ray 04/29/2018 HISTORY: Intubated TECHNIQUE: Single frontal view of the chest is obtained. FINDINGS: Endotracheal tube and NG tube are overlying appropriate positions. No evident pneumothorax . The heart remains enlarged. Bibasilar increased density persists. Interstitium is increased. Perihi lar vascular indistinctness also noted. Hemidiaphragms are obscured. IMPRESSION: Correlate for congestive heart failure with associated effusions. Pneumonia not excluded .
[2018-04-30] MEDS: CHLORHEXIDINE GLUCONATE 15 ML CUP MUCOUS MEM SCH ×2 (08:54→20:00)
[2018-04-30] MEDS: PANTOPRAZOLE 40 MG/10 ML VIAL IV SCH (08:54)
[2018-04-30] MEDS: ASPIRIN 325 MG TAB PO SCH (08:54)
[2018-04-30] MEDS: METOPROLOL TARTRATE 25 MG TAB PO SCH ×2 (08:55→20:11)
--- NOTE | 2018-04-30 09:43 | CONS ---
CONSULTATION Mr. Bautista is a 38-year-old gentleman who is seen for evaluation of atrial fibrillation with RVR. The patient's electronic medical records reviewed. The patient is currently intubated. This patient came to the emergency room with a complaint of shortness of breath, palpitations, substernal chest pain with a radiation to the left arm. The patient has a history of alcohol abuse and has been drinking heavily lately. This morning patient was very agitated in spite of the Ativan and was transferred to the intensive care unit and has a has been intubated. The patient was found to be in atrial fibrillation with rapid ventricular response. Currently, the patient still continues to be a in on the Cardizem drip with a heart rate of 1 30-140. The patient received a subsequent bolus of Cardizem, received 2 doses of digoxin as ordered and also IV Lopressor has been given. The patient has a chest x-ray finding suggestive of bilateral infiltrates, however, his BNP level is only 785 and it is not exactly clear that it is a cardiac or noncardiac congestive heart failure. Patient's liver enzymes are elevated. There is no previous cardiac history available. PAST MEDICAL HISTORY: Includes history of appendicectomy and tonsillectomy. HOME MEDICATIONS: Include no known medications. PHYSICAL EXAMINATION: At present reveals a 38-year-old obesely built gentleman who is currently intubated. Patient's heart rate is 130-140 per minute, blood pressure is 100/90 mmHg. Neck is supple. There is no increase in jugular venous pressure. First and second heart sounds are heard lungs are clinically clear to auscultation. LUNGS: Bilateral scattered rhonchi. Abdomen is soft. Liver and spleen are not enlarged extremities peripheral pulses are 2+ EKG shows atrial fibrillation with a rapid ventricular response. Chest x-ray shows bilateral heart bilateral infiltrates. The patient's BNP 700. FINAL IMPRESSION: 1. This patient has a atrial a atrial fibrillation with a rapid ventricular response. 2. Acute a delirium tremens secondary to alcohol abuse. RECOMMENDATIONS: We will continue the patient on Cardizem. If the patient the rate is not controlled, we will switch him with IV amiodarone. Echocardiogram is ordered. MMODL / IJN: [id number] /
--- NOTE | 2018-04-30 11:19 | PCN ---
PROCEDURE NOTE OPERATIVE REPORT: Placement of a left radial arterial line. PREOPERATIVE DIAGNOSES: Acute respiratory failure, secondary to alcohol withdrawal. POSTOPERATIVE DIAGNOSES: Acute respiratory failure secondary to alcohol withdrawal. ANESTHESIA: None deployed. DESCRIPTION OF PROCEDURE: The left wrist was prepared in a sterile fashion and drapes were applied. The left radial artery was palpated, cannulated, and a guidewire was placed. A Cook's catheter was inserted over the guidewire, and the guidewire was removed. Good blood flow and good waveform were noted, no evidence of any immediate complications. MMODL / IJN: [id number] /
[2018-04-30] MEDS: MULTIVITAMINS, THERA 1 EACH TAB PO SCH (11:34)
[2018-04-30] MEDS: THIAMINE 100 MG TAB PO SCH ×2 (11:34→16:40)
[2018-04-30] MEDS: FOLIC ACID 1 MG TAB PO SCH (11:34)
--- NOTE | 2018-04-30 14:08 | PN ---
PROGRESS NOTE DATE OF SERVICE: 04/30/2018 This is a 38-year-old male who was seen by my partner yesterday in consultation. He presented with acute hypoxemic respiratory failure secondary to delirium tremens, pulmonary edema and atrial fibrillation with RVR. For that reason, the patient was intubated yesterday. He was admitted on the . He was intubated on the . He came in with apparent shortness of breath, chest pain, alcohol withdrawal syndrome, and in atrial fibrillation with RVR. He was intubated in the ICU on April 29. He was admitted to the ICU on April 29. His chest x-ray shows evidence of fluid overload. The patient remains on a number of medications including Nimbex, amiodarone, fentanyl and propofol. The patient is currently on the volume assist-control mode rate of 24, tidal volume 450, FiO2 50%, PEEP of 5. Blood gases show PO2 of 78, a PaCO2 of 43 and a pH of 7.43. The patient remains on Nimbex 2 mcg/kg per minute, being monitored by [id number] monitoring, amiodarone at 0.5 mg/minute, fentanyl at 75 mcg/hour, propofol 75 mcg/kg per minute, and a saline IV at 100 mL an hour. We are going to try to get him off the paralysis today. I told the nurse that if he is able to come off paralysis, needs additional sedation, she can use some benzodiazepine, i.e. Ativan. Chest x-ray does show a pattern of fluid overload. Current vital signs are reviewed. His temperature is 98.5, heart rate 122 and irregular, respiratory rate 24, blood pressure 95/53, mean is not calculated here and his saturations are between 92% and 95% on 50% FiO2 and PEEP of 5. Currently appears quite sedated. He has got an orally placed endotracheal tube and an NG tube. HEENT examination is grossly unremarkable. Mucous membranes are moist. Orally placed endotracheal tube is noted. Neck is supple. Full range of motion. No adenopathy or thyromegaly. Cardiovascular examination reveals a regular rhythm and rate. Heart rate about 120 beats per minute. S1, S2 normal. Lungs reveal coarse bilateral rhonchi. No wheezes or crackles. Breath sounds are diminished throughout. Abdomen is soft. Bowel sounds are heard. Extremities are intact. No cyanosis, clubbing, or edema. Skin without rash. Neurologic examination could not be adequately assessed because the patient is heavily sedated and paralyzed. LAB STUDIES: Microbiologic studies are pending or negative. White count 3.4, hemoglobin 12.6, hematocrit 39.9, platelet count is 45,000. Blood gases have been noted. Sodium, potassium, chloride all normal. CO2 normal, anion gap normal. BUN and creatinine were 14 and 0.73. Calcium 7.2, phosphorus 4.8, magnesium 1.6, total bilirubin 2.5, AST 184, ALT 215, albumin 3. TSH is normal. Urine is negative. Medications are reviewed. ASSESSMENT: 1. Acute hypoxemic respiratory failure secondary to delirium tremens, cardiogenic pulmonary edema, and atrial fibrillation with rapid ventricular rate. 2. Atrial fibrillation with rapid ventricular rate, currently on amiodarone. 3. Alcoholic cardiomyopathy. 4. Acute alcohol withdrawal syndrome and delirium tremens. 5. Electrolyte disturbances including hypomagnesemia. 6. 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 7. Profound agitation and confusion, thought to be related to alcohol withdrawal syndrome. PLAN: The patient remains on the ventilator. We will do a daily interruption of sedation. The patient may not be ready for extubation. Additional recommendations and suggestions are forthcoming. Prognosis is guarded. He remains on good medications. X- rays, labs and medications are all reviewed. We will continue to follow. Hopefully get him extubated as soon as possible. Critical care time is 34 minutes. MMCINTHIAL / GREGN: [id number] /
--- NOTE | 2018-04-30 14:39 | P.PN ---
Subjective Progress Note Date: 04/30/18 Principal diagnosis: A. fib with RVR, alcohol withdrawal Patient seen and examined. No acute events overnight. Patient remains intubated, weaning down Nimbex. Objective - Vital Signs Vital signs: Vital Signs Temp 98.5 F 04/30/18 12:00 Pulse 140 H 04/30/18 14:00 Resp 14 04/30/18 14:00 BP 75/64 04/30/18 08:30 Pulse Ox 96 04/30/18 14:00 Intake & Output 04/29/18 04/30/18 04/30/18 18:59 06:59 18:59 Intake Total 977.991 6580.817 1356 Output Total 2125 3300 920 Balance -1483.417 -427.183 436 Weight 135.2 kg 139.253 kg 139.18 kg Intake: IV 439 1776 846 0.9NS 130 Diltiazem 50 mg In Sodium 140 Chloride 0.9% 40 ml @ Per Protocol IV .Q0M [facility] Rx#:[id number] Magnesium Sulfate-D5w Pmx 200 1 gm In Dextrose/Water 1 100ml.bag @ 100 mls/hr IVPB Q1H [facility] Rx#: [id number] Piperacillin-Tazobactam 3 100 125 .375 gm In Sodium Chloride 0.9% 100 ml @ 25 mls/hr IVPB Q8HR [facility] Rx# :[id number] Pressure bag 9 36 21 Sodium Chloride 0.9% 1, 300 1300 700 000 ml @ 100 mls/hr IV . Q10H [facility] Rx#:[id number] Intake, IV Titration 905.599 2576.817 400 Amount Amiodarone 450 mg In 214.423 Dextrose 5% in Water 250 ml @ 1 MG/MIN 33.33 mls/ hr IV .Q7H31M [facility] Rx#: [id number] Cisatracurium 200 mg In 173.824 Sodium Chloride 0.9% 180 ml @ 1 MCG/KG/MIN 8.11 mls/hr IV .Q24H [facility] Rx#: [id number] Diltiazem 50 mg In Sodium 96 50 Chloride 0.9% 40 ml @ Per Protocol IV .Q0M [facility] Rx#:[id number] Magnesium Sulfate-D5w Pmx 100 1 gm In Dextrose/Water 1 100ml.bag @ 100 mls/hr IVPB Q1H [facility] Rx#: [id number] Propofol 1,000 mg In 100 658.570 300 Empty Bag 1 bag @ Titrate IV .Q0M [facility] Rx#: [id number] fentaNYL (PF) 2,500 mcg 6.583 In Sodium Chloride 0.9% 200 ml @ 50 MCG/HR 5 mls/ hr IV .Q24H [facility] Rx#: [id number] Tube Feeding 80 Other 30 Output: Urine 2125 3300 920 Other: Voiding Method Indwelling Catheter Indwelling Catheter Indwelling Catheter ABP, PAP, CO, CI - Last Documented Arterial Blood Pressure 94/64 - Exam General: [non toxic], [no distress], [appears at stated age] Derm: [warm], [dry] Head: [atraumatic], [normocephalic], [symmetric] Eyes: [EOMI], [no lid lag], [anicteric sclera] Mouth: [no lip lesion], [mucus membranes moist] Cardiovascular: [S1S2 reg], [no murmur], [positive DP pulse bilateral] Lungs: [Coarse breath sounds bilateral], [no rhonchi, no rales] , [no accessory muscle use] Abdominal: [soft], [ nontender to palpation], [no guarding], [no appreciable organomegaly] Ext: [no gross muscle atrophy], [no edema], [no contractures] Neuro: [no focal neuro deficits] Psych: [Intubated] - Labs CBC & Chem 7: 04/30/18 04:00 04/30/18 11:57 Labs: Abnormal Lab Results - Last 24 Hours (Table) 04/29/18 04/29/18 04/30/18 Range/Units 17:30 20:23 04:00 WBC (3.8-10.6) k/uL RBC (4.30-5.90) m/uL Hgb (13.0-17.5) gm/dL MCV (80.0-100.0) fL Plt Count (150-450) k/uL ABG pH 7.27 L (7.35-7.45) ABG pCO2 59 H (35-45) mmHg ABG pO2 129 H 160 H (83-108) mmHg ABG HCO3 27 H 28 H (21-25) mmol/L ABG Total CO2 29 H 29 H (19-24) mmol/L ABG O2 Saturation 98.4 H 100.0 H (94-97) % Calcium 7.2 L (8.4-10.2) mg/dL Phosphorus 4.8 H (2.5-4.5) mg/dL Total Bilirubin 2.5 H (0.2-1.3) mg/dL AST 184 H (17-59) U/L ALT 215 H (21-72) U/L Total Protein 6.2 L (6.3-8.2) g/dL Albumin 3.0 L (3.5-5.0) g/dL Triglycerides 158 H (<150) mg/dL HDL Cholesterol 69 H (40-60) mg/dL 04/30/18 04/30/18 Range/Units 04:00 05:31 WBC 3.4 L (3.8-10.6) k/uL RBC 3.84 L (4.30-5.90) m/uL Hgb 12.6 L (13.0-17.5) gm/dL MCV 104.0 H (80.0-100.0) fL Plt Count 45 L (150-450) k/uL ABG pH (7.35-7.45) ABG pCO2 (35-45) mmHg ABG pO2 78 L (83-108) mmHg ABG HCO3 28 H (21-25) mmol/L ABG Total CO2 30 H (19-24) mmol/L ABG O2 Saturation (94-97) % Calcium (8.4-10.2) mg/dL Phosphorus (2.5-4.5) mg/dL Total Bilirubin (0.2-1.3) mg/dL AST (17-59) U/L ALT (21-72) U/L Total Protein (6.3-8.2) g/dL Albumin (3.5-5.0) g/dL Triglycerides (<150) mg/dL HDL Cholesterol (40-60) mg/dL Assessment and Plan Assessment: Assessment and Plan 1. Acute hypoxic respiratory failure: Secondary to delirium tremens, pulmonology edema (due to A-Fib with RVR). Full ventilator support as per MICU attending. Some cocerns for PNA (seen on CXR, shows effusions but PNA cannot be excluded) - continue Piperacillin-Tazobactam IV. Continue Lasix 40 mg IV BID. Elevated HOB. Aspiration precautions. FU Echocardiogram, daily CXR. 2. A-Fibrillation with RVR: Continue Metoprolol 25 mg PO BID, Digoxin 250 mcg IV QD. Telemetry monitoring. Keep K > 4 and Mg > 2. FU Cardiology 4. Thrombocytopenia: Plt 45. Likely from EtOH. We will watch carefully as patient is on Heparin. 5. Macrocytosis: MCV 104.0. Likely from EtOH. FU B12/Folate 6. Transaminitis: AST 184 ALT 215 T. Bili 2.5. Likely from EtOH. 7. EtOH abuse: Patient under general sedation. CIWA protocol with Ativan IV PRN for CIWA > 8. Continue Thiamine 100 mg IV BID, Folic acid 1 mg PO QD. 8. DVT/GI Prophylaxis: Protonix 40 mg IV QD. Heparin 5000 units SUBCUT TID.
[2018-04-30] MEDS: fentaNYL (PF) 2,500 MCG in SODIUM CHLORIDE 0.9% 200 ML IV SCH (14:52)
--- NOTE | 2018-04-30 15:23 | PN ---
PROGRESS NOTE Jf is a 38-year-old gentleman who was admitted to the hospital with acute alcohol withdrawal and went into respiratory failure. Had to be intubated. Currently on vent. He also developed new onset atrial fibrillation with poorly controlled ventricular rate. The patient is currently on IV amiodarone. Not able to give him beta blockers or IV Cardizem because of hypotension. I am starting him on Lanoxin. He is not a candidate for anticoagulation as his platelet count is low. On exam, heart rate is 120 beats per minute. Blood pressure is 94/52. Respirations 18. Chest exam reveals diminished air entry at the bases. Heart exam reveals first and second heart sounds. No gallop. Exam of extremities did not reveal any edema. Peripheral pulses are felt. LABORATORY DATA: Labs show a hemoglobin of 12.6, platelet count is 45, potassium is 3.6, creatinine is 0.7. AST and ALT are elevated. LDL cholesterol is high at 91. ASSESSMENT: 1. History of EtOH abuse with possible delirium tremens. 2. Respiratory failure. 3. Atrial fibrillation with poorly controlled ventricular rate. We will continue the patient on IV amiodarone. Review the echo once the results are available. Not a candidate for IV heparin. We will start him on digoxin. MMODL / IJN: [id number] /
[2018-04-30] MEDS ORDERED: AMIODARONE 450 MG in DEXTROSE 5% IN WATER 250 ML IV SCH ×2 (23:00)
[2018-04-30] MEDS ORDERED: DEXTROSE 5% IN WATER 100 ML with AMIODARONE 150 MG IV ONE (23:00)
[2018-05-01] MEDS: LORazepam 2 MG/ML INJ IV PRN ×6 (00:01→21:38)
[2018-05-01] MEDS: PROPOFOL 1,000 MG in EMPTY BAG 1 BAG IV SCH ×13 (00:14→22:53)
[2018-05-01] MEDS: IPRATROPIUM-ALBUTEROL 3 ML NEB INHALATION SCH ×7 (03:35→23:30)
[2018-05-01] MEDS: fentaNYL (PF) 2,500 MCG in SODIUM CHLORIDE 0.9% 200 ML IV SCH ×2 (03:54→09:25)
[2018-05-01 04:10] LABS: Basophils % (A) 1 %; Eosinophils # (A) 0.3 k/uL (0-0.7); Eosinophils % (A) 7 %; HCT 41.8 % (39.0-53.0); HGB 13.6 gm/dL (13.0-17.5); Lymphocytes # (A) 0.7 k/uL (1.0-4.8); Lymphocytes % (A) 14 %; MCH 34.1 pg (25.0-35.0); MCHC 32.6 g/dL (31.0-37.0); MCV 104.7 fL (80.0-100.0); Macrocytosis Moderate; Mean Platelet Volume 10.7; Monocytes # (A) 0.3 k/uL (0-1.0); Monocytes % (A) 5 %; Neutrophils # (A) 3.6 k/uL (1.3-7.7); Neutrophils % (A) 73 %; RDW 15.1 % (11.5-15.5)
[2018-05-01 04:16] LABS: Platelet Count 48 k/uL (150-450)
[2018-05-01 04:20] LABS: Anion Gap 7 mmol/L; Blood Urea Nitrogen 14 mg/dL (9-20); Calcium 6.9 mg/dL (8.4-10.2); Carbon Dioxide 28 mmol/L (22-30); Chloride 104 mmol/L (98-107); Glucose 97 mg/dL (74-99); Magnesium 1.7 mg/dL (1.6-2.3); Potassium 3.6 mmol/L (3.5-5.1); Sodium 139 mmol/L (137-145)
[2018-05-01 04:21] LABS: Partial Thromboplastin Time 23.5 sec (22.0-30.0); Prothrombin Time 10.4 sec (9.0-12.0)
[2018-05-01] MEDS: ESMOLOL IN SODIUM CHLORIDE PMX 2.5 GM in SALINE 1 250ML.BAG IV SCH ×3 (05:12→19:58)
[2018-05-01 05:16] LABS: ABG HCO3 28 mmol/L (21-25); ABG Oxygen Saturation 95.9 % (94-97); ABG PCO2 49 mmHg (35-45); ABG PH 7.37 (7.35-7.45); ABG PO2 80 mmHg (83-108); ABG TCO2 30 mmol/L (19-24)
[2018-05-01] MEDS: MAGNESIUM SULFATE-D5W PMX 1 GM in DEXTROSE/WATER 1 100ML.BAG IVPB SCH ×2 (05:22→06:12)
[2018-05-01] MEDS ORDERED: POTASSIUM BICARBONATE/CIT AC 20 MEQ TABLET.EFF NG-TUBE SCH (06:00)
[2018-05-01 06:07] LABS: ALT 160 U/L (21-72); AST 110 U/L (17-59); Albumin 2.8 g/dL (3.5-5.0); Alkaline Phosphatase 92 U/L (38-126); Total Bilirubin 2.2 mg/dL (0.2-1.3); Total Protein 6.3 g/dL (6.3-8.2)
[2018-05-01] MEDS: FUROSEMIDE 10 MG/ML 4 ML VIAL IV SCH (06:11)
[2018-05-01] MEDS: SODIUM CHLORIDE 0.9% 1,000 ML IV SCH ×2 (06:45→14:39)
--- NOTE | 2018-05-01 08:21 | XR ---
EXAMINATION TYPE: XR chest 1V DATE OF EXAM: 05/01/2018 COMPARISON: Prior chest x-ray 04/30/2017 HISTORY: Intubated TECHNIQUE: Single frontal view of the chest is obtained. FINDINGS: Findings are similar to prior exam. Endotracheal tube and NG tube are overlying appropriat e positions. There are overlying cardiac leads. Heart remains enlarged. No evident pneumothorax. Biba silar increased density with obscured hemidiaphragms again noted. Perihilar airspace disease shows a similar appearance. IMPRESSION: Correlate for congestive heart failure and associated effusions. Pneumonia not excluded.
[2018-05-01] MEDS: PIPERACILLIN-TAZOBACTAM 3.375 GM in SODIUM CHLORIDE 0.9% 100 ML IVPB SCH ×2 (08:51→16:09)
[2018-05-01] MEDS: PANTOPRAZOLE 40 MG/10 ML VIAL IV SCH (08:51)
[2018-05-01] MEDS: DIGOXIN 250 MCG/ML 2 ML AMP IVP SCH ×3 (08:51→20:00)
[2018-05-01] MEDS: HEPARIN SODIUM,PORCINE 5,000 UNIT/ML 1 ML VIAL SQ SCH ×2 (08:52→16:08)
[2018-05-01] MEDS: CHLORHEXIDINE GLUCONATE 15 ML CUP MUCOUS MEM SCH ×2 (08:53→20:00)
[2018-05-01] MEDS: ASPIRIN 325 MG TAB PO SCH (08:53)
[2018-05-01] MEDS: METOPROLOL TARTRATE 25 MG TAB PO SCH (10:05)
--- NOTE | 2018-05-01 10:15 | PN ---
PROGRESS NOTE DATE OF SERVICE: 05/01/2018 A 38-year-old male who was seen by my partner over the weekend. He presented with acute hypoxemic respiratory failure secondary to delirium tremens. The patient also was found to have pulmonary edema and atrial fibrillation with RVR. The patient was intubated. He was admitted on 04/28 and intubated on 04/29 the following day. Initially came in with shortness of breath, chest pain, alcohol withdrawal syndrome, and atrial fibrillation with RVR. Currently, the patient remains on the volume assist-control mode, rate of 24, tidal volume 450, FiO2 of 40%, PEEP of 10. Blood gases show pO2 of 80, pCO2 49, pH 7.37. The patient is on esmolol per Cardiology at 35 mcg mcg per hour, propofol at 60 mcg/kg per minute, fentanyl at 30 mcg/hour and 0.9 IV at 100 mL an hour. The patient is also receiving Vital high-protein at 20 with a goal 20 mL an hour. Chest x-ray shows some atelectasis at the bases and some fluid in the right chest. There is also some partial right lower lobe collapse. Microbiologic studies are thus far negative. Yesterday, we were able to accomplish getting him off of paralysis. Today we are going to try daily interruption of sedation with a spontaneous breathing trial. Chest x-ray is consistent with fluid overload and effusion. Current vital signs, good temperature 100.9, heart rate to 130 to 135 and irregular consistent with atrial fibrillation, respiratory rate 26, blood pressure 100/43, mean 62, saturations are 97% on 40% FiO2 and 10 of PEEP. Currently sedated. HEENT PHYSICAL EXAMINATION: HEENT: Grossly unremarkable. Membranes are moist. Oral endotracheal tube and NG tube noted. NECK: Supple. Full range of motion. No adenopathy, thyromegaly or neck vein distention. Cardiovascular examination reveals tachycardia. It is irregular. Heart rate about 125-130 beats per minute. It is consistent with atrial fibrillation. No murmur noted. Lungs reveal coarse rhonchi. There is some bibasilar crackles. Breath sounds are diminished throughout. Abdomen is soft. Bowel sounds are heard. Extremities are intact. No cyanosis, clubbing, or significant edema. Skin without rash. Neurologic examination is brief but non start neurologic examination could not be assessed. MICROBIOLOGIC DATA: Negative or pending. LAB DATA: Includes a white count of 5, hemoglobin 13.6, hematocrit 41.8, platelet count 48,000. PT/INR, PTT normal. Blood gases have been noted. PO2 80, pCO2 49, P 7.37. Sodium 139, potassium 3.6, chloride 104, CO2 28, anion gap 7, BUN and creatinine were 14 and 0.83. Calcium 6.9, phosphorus is 5, bilirubin is 2.2, AST 110, ALT 160, albumin 2.8. Thyroid function is normal. PATIENT'S MEDICATIONS: Reviewed. He remains on thiamin, saline IV, propofol, potassium replacement, Zosyn, Protonix, Narcan, multivitamins, metoprolol, magnesium replacement, Ativan p.r.n. per [facility] with DuoNeb q.4 subcu heparin, Lasix, full gases, chlorhexidine, aspirin, and digoxin. ASSESSMENT: Assessment. 1. Acute hypoxemic respiratory failure secondary to delirium tremens, cardiogenic pulmonary edema and atrial fibrillation with RVR with intubation on April 29, 2018. 2. Atrial fibrillation with rapid ventricular rate, currently being treated by Cardiology. 3. Alcoholic cardiomyopathy. 4. Acute alcohol withdrawal syndrome and delirium tremens. 5. Electrolyte disturbances including hypomagnesemia. 6. 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 7. Profound agitation and confusion secondary to delirium tremens and alcohol withdrawal syndrome. PLAN: The patient will continue to be on the ventilator for the time being. We will do a daily interruption of sedation. He be nourished. He is receiving antibiotic. Microbiology studies are thus far negative. Chest x-rays reviewed. Remains on fentanyl, propofol and esmolol drips. Additional recommendations and suggestions are forthcoming. Prognosis is very guarded. Critical care time 34 minutes. MMODL / IJN: [id number] /
[2018-05-01] MEDS ORDERED: LACTATED RINGERS 1,000 ML IV ONE (11:30)
--- NOTE | 2018-05-01 12:47 | ECHOF ---
Referral Reason:new a-fib MEASUREMENTS -------- HEIGHT: 182.9 cm WEIGHT: 139.3 kg BP: 82/57 RVIDd: 3.3 cm (< 3.3) IVSd: 1.0 cm (0.6 - 1.1) LVIDd: 5.5 cm (3.9 - 5.3) LVPWd: 1.2 cm (0.6 - 1.1) IVSs: 1.3 cm LVIDs: 5.0 cm LVPWs: 1.1 cm LA Diam: 3.8 cm (2.7 - 3.8) Ao Diam: 3.6 cm (2.0 - 3.7) AV Cusp: 2.0 cm (1.5 - 2.6) LA Diam: 4.0 cm (2.7 - 3.8) MV EXCURSION: 19.544 mm (> 18.000) MV EF SLOPE: 152 mm/s (70 - 150) EPSS: 1.3 cm RAP: 5.00 mmHg RVSP: 13.32 mmHg FINDINGS -------- Atrial fibrillation. This was a technically adequate study. Morbid Obesity The left ventricle is mildly dilated. Left ventricular wall thickness is normal. There is severe global hypokinesis of LV . Overall left ventricular systolic function is severely impaired with, an EF < 20%. The right ventricle is normal in size. The left atrial size is normal. The right atrial size is normal. The aortic valve is trileaflet, and appears structurally normal. No aortic stenosis or regurgitation. The mitral valve leaflets are mildly thickened. Mild mitral regurgitation is present. Mild tricuspid regurgitation present. There is no evidence of pulmonary hypertension. The right v entricular systolic pressure, as measured by Doppler, is 13.32mmHg. Trace/mild (physiologic) pulmonic regurgitation. The aortic root size is normal. There is no pericardial effusion. CONCLUSIONS -------- 1. Left ventricular wall thickness is normal. 2. There is severe global hypokinesis of LV . 3. Overall left ventricular systolic function is severely impaired with, an EF < 20%. 4. The right ventricle is normal in size. 5. The left atrial size is normal. 6. The right atrial size is normal. 7. The aortic valve is trileaflet, and appears structurally normal. No aortic stenosis or regurgitati on. 8. The mitral valve leaflets are mildly thickened. 9. Mild mitral regurgitation is present. 10. Mild tricuspid regurgitation present. 11. There is no evidence of pulmonary hypertension. 12. The right ventricular systolic pressure, as measured by Doppler, is 13.32mmHg. 13. Trace/mild (physiologic) pulmonic regurgitation. 14. The aortic root size is normal. 15. There is no pericardial effusion. VIOLIN RESTORER: Sydnee See RDCS
[2018-05-01] MEDS ORDERED: DEXTROSE 5% IN WATER 100 ML with AMIODARONE 150 MG IV ONE (13:00)
[2018-05-01] MEDS: MULTIVITAMINS, THERA 1 EACH TAB PO SCH (13:02)
[2018-05-01] MEDS: THIAMINE 100 MG TAB PO SCH ×2 (13:02→16:09)
[2018-05-01] MEDS: FOLIC ACID 1 MG TAB PO SCH (13:06)
--- NOTE | 2018-05-01 13:17 | P.PN ---
Subjective Progress Note Date: 05/01/18 Principal diagnosis: Acute respiratory failure, atrial fibrillation with rapid ventricular rate Patient was seen and examined. No acute events overnight. Reports of seizure- like activity around 12:00 as per nursing reports. EEG ordered, Ativan given. Patient is currently on full ventilator support. Objective - Vital Signs Vital signs: Vital Signs Temp 100.9 F H 05/01/18 08:30 Pulse 134 H 05/01/18 12:00 Resp 35 H 05/01/18 12:00 BP 100/43 05/01/18 08:30 Pulse Ox 100 05/01/18 12:00 Intake & Output 04/30/18 05/01/18 05/01/18 18:59 06:59 18:59 Intake Total 2910.202 2681.985 1948.031 Output Total 2120 840 945 Balance 701.621 9742.985 1003.031 Weight 139.18 kg 138.346 kg 140.8 kg Intake: IV 1461 1433 468 Magnesium Sulfate-D5w Pmx 200 1 gm In Dextrose/Water 1 100ml.bag @ 100 mls/hr IVPB Q1H [facility] Rx#: [id number] Piperacillin-Tazobactam 3 225 100 50 .375 gm In Sodium Chloride 0.9% 100 ml @ 25 mls/hr IVPB Q8HR [facility] Rx# :[id number] Pressure bag 36 33 18 Sodium Chloride 0.9% 1, 1200 1100 400 000 ml @ 100 mls/hr IV . Q10H [facility] Rx#:[id number] Intake, IV Titration 1189.202 501.575 4329.031 Amount Amiodarone 450 mg In 159.103 85.799 Dextrose 5% in Water 250 ml @ 1 MG/MIN 33.33 mls/ hr IV .Q7H31M [facility] Rx#: [id number] Cisatracurium 200 mg In 133.004 Sodium Chloride 0.9% 180 ml @ 1 MCG/KG/MIN 8.11 mls/hr IV .Q24H [facility] Rx#: [id number] Esmolol in Sodium 46.549 200.031 Chloride Pmx 2.5 gm In Saline 1 250ml.bag @ 10 MCG/KG/MIN 8.3 mls/hr IV .Q24H [facility] Rx#:[id number] Lactated Ringers 1,000 ml 1000 @ 999 mls/hr IV .Q1H1M [facility] Rx#:[id number] Magnesium Sulfate-D5w Pmx 100 1 gm In Dextrose/Water 1 100ml.bag @ 100 mls/hr IVPB Q1H [facility] Rx#: [id number] Propofol 1,000 mg In 565.762 596.304 200 Empty Bag 1 bag @ Titrate IV .Q0M [facility] Rx#: [id number] fentaNYL (PF) 2,500 mcg 231.333 130.333 In Sodium Chloride 0.9% 200 ml @ 50 MCG/HR 5 mls/ hr IV .Q24H [facility] Rx#: [id number] Tube Feeding 200 300 80 Other 60 90 Output: Urine 2120 840 945 Other: Voiding Method Indwelling Catheter Indwelling Catheter ABP, PAP, CO, CI - Last Documented Arterial Blood Pressure 96/49 - Exam General: [non toxic], [no distress], [appears at stated age] Derm: [warm], [dry] Head: [atraumatic], [normocephalic], [symmetric] Eyes: [EOMI], [no lid lag], [anicteric sclera] Mouth: [no lip lesion], [mucus membranes moist] Cardiovascular: [S1S2 reg], [no murmur], [positive DP pulse bilateral] Lungs: [Coarse breath sounds bilateral], [no rhonchi, no rales] , [no accessory muscle use] Abdominal: [soft], [ nontender to palpation], [no guarding], [no appreciable organomegaly] Ext: [no gross muscle atrophy], [no edema], [no contractures] Neuro: [no focal neuro deficits] Psych: [Intubated] - Labs CBC & Chem 7: 05/01/18 03:57 05/01/18 10:00 Labs: Abnormal Lab Results - Last 24 Hours (Table) 05/01/18 05/01/18 05/01/18 Range/Units 03:57 03:57 05:12 RBC 4.00 L (4.30-5.90) m/uL MCV 104.7 H (80.0-100.0) fL Plt Count 48 L (150-450) k/uL Lymphocytes # 0.7 L (1.0-4.8) k/uL ABG pCO2 49 H (35-45) mmHg ABG pO2 80 L (83-108) mmHg ABG HCO3 28 H (21-25) mmol/L ABG Total CO2 30 H (19-24) mmol/L Calcium 6.9 L (8.4-10.2) mg/dL Phosphorus 5.0 H (2.5-4.5) mg/dL Total Bilirubin 2.2 H (0.2-1.3) mg/dL AST 110 H (17-59) U/L ALT 160 H (21-72) U/L Albumin 2.8 L (3.5-5.0) g/dL Assessment and Plan Assessment: Assessment and Plan 1. Acute hypoxic respiratory failure: Secondary to delirium tremens, pulmonology edema (due to A-Fib with RVR). Full ventilator support as per MICU attending. Some concerns for PNA (seen on CXR, shows effusions but PNA cannot be excluded) - continue Piperacillin-Tazobactam IV. Continue Lasix 40 mg IV BID. Elevated HOB. Aspiration precautions. FU Daily CXR 2. Seizure like episode: Possible due to DTs. Ativan IV PRN for seizure activity. Full ventilator support with sedation. FU EEG 3. A-Fibrillation with RVR: HR in the 100s. Continue Metoprolol 25 mg PO BID. Esmolol IV x 1. Continue Digoxin 250 mcg IV Q6H and start Amiodorone IV. Telemetry monitoring. Keep K > 4 and Mg > 2. FU Cardiology 4. HFrEF: Echocardiogram shows EF < 20%. This is likely due to EtOH abuse. Ins and Outs. Telemetry monitoring. Keep K > 4 and Mg > 2. Continue beta theodora, would benefit from ACEi and Aldactone. FU Cardiology 5. Thrombocytopenia: Plt 48. Likely from EtOH. We will watch carefully as patient is on Heparin. 6. Macrocytosis: MCV 104.7. Likely from EtOH. FU B12/Folate 7. Transaminitis: AST 184 to 110 ALT 215 to 160 T. Bili 2.5 to 2.2. Likely from EtOH. 8. EtOH abuse: Patient under general sedation. CIWA protocol with Ativan IV PRN for CIWA > 8. Continue Thiamine 100 mg IV BID, Folic acid 1 mg PO QD. 9. DVT/GI Prophylaxis: Protonix 40 mg IV QD. Heparin 5000 units SUBCUT TID. Continue Full ventilator support. Wean sedation as tolerated. Will follow Cardiology and Pulmonology recommendations. EEG pending for possible seizures.
[2018-05-01] MEDS: AMIODARONE 450 MG in DEXTROSE 5% IN WATER 250 ML IV SCH ×4 (13:50→20:47)
[2018-05-01 14:08] LABS: Folate, Serum 6.2 ng/mL
[2018-05-01] MEDS: NOREPINEPHRINE 4 MG in SODIUM CHLORIDE 0.9% 250 ML IV SCH (14:34)
--- NOTE | 2018-05-01 16:15 | PN ---
PROGRESS NOTE 38-year-old gentleman who is intubated and on vent in the ICU for alcohol withdrawal. We are involved in his care because of the atrial fibrillation. He remains in atrial fibrillation with poorly controlled ventricular rate. The patient is on IV amiodarone as per Dr. Rob Corona. He is on digoxin. He is somewhat hypotensive and has just received a fluid bolus. On exam, intubated, sedated on vent. Heart rate is 130s per minute. Blood pressure is 96/49. Chest exam reveals diminished air entry at the bases. Heart exam reveals first and second heart sounds, irregular rhythm. Exam of extremities did not reveal any edema. LABORATORY DATA: Show a hemoglobin of 13.6, platelet count is low at 48. Creatinine is 0.8. ASSESSMENT: Chronic atrial fibrillation, poorly controlled ventricular rate. We will continue the dig. Continue the amiodarone. Not a candidate for anticoagulation because of the low platelet count. Blood pressure tolerating, we can add Cardizem or beta blockers. MMODL / IJN: [id number] /
[2018-05-01] MEDS ORDERED: LORazepam 2 MG/ML INJ ONE (23:00)
[2018-05-01] MEDS ORDERED: HEPARIN SODIUM,PORCINE 5,000 UNIT/ML 1 ML VIAL ONE (23:00)
[2018-05-02] MEDS ORDERED: PROPOFOL 10 MG/ML 100 ML VIAL IV ONE ×3 (00:14)
[2018-05-02] MEDS ORDERED: SODIUM CHLORIDE 0.9% 1,000 ML BAG ONE (00:14)
[2018-05-02] MEDS: IPRATROPIUM-ALBUTEROL 3 ML NEB INHALATION SCH ×6 (03:00→23:09)
[2018-05-02 04:44] LABS: Basophils % (A) 0 %; Eosinophils # (A) 0.3 k/uL (0-0.7); Eosinophils % (A) 5 %; HCT 43.1 % (39.0-53.0); HGB 13.8 gm/dL (13.0-17.5); Lymphocytes # (A) 0.6 k/uL (1.0-4.8); Lymphocytes % (A) 11 %; MCV 106.4 fL (80.0-100.0); Macrocytosis Moderate; Mean Platelet Volume 9.8; Monocytes # (A) 0.3 k/uL (0-1.0); Monocytes % (A) 6 %; Neutrophils # (A) 4.3 k/uL (1.3-7.7); Neutrophils % (A) 76 %; RBC 4.05 m/uL (4.30-5.90); RDW 15.2 % (11.5-15.5); WBC 5.7 k/uL (3.8-10.6)
[2018-05-02] MEDS: PIPERACILLIN-TAZOBACTAM 3.375 GM in SODIUM CHLORIDE 0.9% 100 ML IVPB SCH ×3 (05:09→16:15)
[2018-05-02] MEDS: HEPARIN SODIUM,PORCINE 5,000 UNIT/ML 1 ML VIAL SQ SCH ×4 (05:11→23:05)
[2018-05-02] MEDS: SODIUM CHLORIDE 0.9% 1,000 ML IV SCH ×2 (05:11→10:05)
[2018-05-02] MEDS: AMIODARONE 450 MG in DEXTROSE 5% IN WATER 250 ML IV SCH ×4 (05:11→11:46)
[2018-05-02 05:14] LABS: ABG Base Excess 1.2 mmol/L; ABG HCO3 26 mmol/L (21-25); ABG Oxygen Saturation 98.4 % (94-97); ABG PCO2 42 mmHg (35-45); ABG PO2 108 mmHg (83-108); ABG TCO2 27 mmol/L (19-24)
[2018-05-02 05:29] LABS: Platelet Count 83 k/uL (150-450)
[2018-05-02] MEDS: ESMOLOL IN SODIUM CHLORIDE PMX 2.5 GM in SALINE 1 250ML.BAG IV SCH ×4 (05:53→22:15)
[2018-05-02 06:05] LABS: ALT 123 U/L (21-72); AST 79 U/L (17-59); Albumin 2.7 g/dL (3.5-5.0); Alkaline Phosphatase 107 U/L (38-126); Anion Gap 7 mmol/L; Blood Urea Nitrogen 11 mg/dL (9-20); Calcium 7.2 mg/dL (8.4-10.2); Carbon Dioxide 25 mmol/L (22-30); Chloride 105 mmol/L (98-107); Glucose 96 mg/dL (74-99); Magnesium 1.8 mg/dL (1.6-2.3); Phosphorus 3.8 mg/dL (2.5-4.5); Potassium 4.2 mmol/L (3.5-5.1); Sodium 137 mmol/L (137-145); Total Bilirubin 2.6 mg/dL (0.2-1.3)
[2018-05-02] MEDS: PROPOFOL 1,000 MG in EMPTY BAG 1 BAG IV SCH ×7 (06:13→22:55)
[2018-05-02] MEDS ORDERED: Magnesium Replacement Protocol 1 EACH MISC MISCELLANE PRN (06:17)
[2018-05-02] MEDS: MAGNESIUM SULFATE-D5W PMX 1 GM in DEXTROSE/WATER 1 100ML.BAG IVPB SCH ×2 (06:37→08:07)
[2018-05-02] MEDS: PANTOPRAZOLE 40 MG/10 ML VIAL IV SCH (08:07)
[2018-05-02] MEDS: CHLORHEXIDINE GLUCONATE 15 ML CUP MUCOUS MEM SCH ×2 (08:07→20:33)
[2018-05-02] MEDS: DIGOXIN 250 MCG/ML 2 ML AMP IVP SCH (08:08)
[2018-05-02] MEDS: ASPIRIN 325 MG TAB PO SCH (08:08)
--- NOTE | 2018-05-02 08:36 | XR ---
EXAMINATION TYPE: XR chest 1V DATE OF EXAM: 05/02/2018 COMPARISON: 05/01/2009 HISTORY: Shortness of breath TECHNIQUE: Single frontal view of the chest is obtained. FINDINGS: ET and NG tube stable. Bilateral consolidation and pleural effusion. Heart enlarged. No pn eumothorax. IMPRESSION: Stable findings correlate for diffuse pneumonia or CHF.
[2018-05-02] MEDS ORDERED: FUROSEMIDE 10 MG/ML 4 ML VIAL IV STA (09:29)
[2018-05-02] MEDS: LORazepam 2 MG/ML INJ IV PRN ×2 (10:23→12:03)
--- NOTE | 2018-05-02 10:31 | PN ---
PROGRESS NOTE DATE OF SERVICE: 05/02/2018 This is a 38-year-old male who was seen by my partner over the weekend. He presented with hypoxemic respiratory failure secondary to delirium tremens. The patient was found also to have significant pulmonary edema, which is likely cardiogenic in origin as well as atrial fibrillation with RVR. He was admitted on the 28 of April and intubated the following day on the . The patient remains on the ventilator. He is on the volume assist-control mode. Rate of 24, tidal volume 450, FiO2 of 40%, PEEP of 10. Blood gases show a PaO2 of 108, PaCO2 of 42, and a pH of 7.4. The patient is currently remaining on Vital high-protein at 20 with a goal of 20 mL an hour, saline IV at 100 mL an hour, norepinephrine is currently on hold, propofol at 10 mcg/kg per minute, fentanyl 20 mcg/hour, amiodarone is at 1 mg/minute and esmolol is at 50 mcg/kg per minute. The patient's chest x-ray shows some fluid overload. We are going to give the patient some Lasix today. He is about 4 L ahead in the last 24 hours. I did discuss findings with the mother. He did have an EEG yesterday. It did show only burst suppression consistent with drug effect according to the neurologist. Neurologically, he seems to be much improved on a much lower dose of sedation. Current vital signs are reviewed. Temperature 99 degrees, heart rate 99, respiratory rate 24, blood pressure 91/75, mean 80, blood pressure is 82/56 with a saturation of 96% on 40% FiO2 and 10 of PEEP. Appears currently still sedated. Although his sedation has been held via holiday and he is able to follow some basic simple commands. HEENT examination is grossly unremarkable. Mucous membranes are moist. Endotracheal tube is noted. NG tube is noted. NECK: Supple. Full range of motion. No adenopathy. Cardiovascular examination reveals irregular rhythm rate. Heart rate is anywhere from 95 up to115. It is atrial fibrillation. No murmur noted. Lungs reveal a few scattered coarse rhonchi. Breath sounds are diminished. Abdomen is obese. Bowel sounds are heard. Extremities are intact. No cyanosis, clubbing, or edema. Skin without rash. Neurologic examination is difficult to assess. Microbiology is thus far all negative. Labs are reviewed. White count 5.7, hemoglobin 13.8, hematocrit 43.1, platelet count 83,000. Sodium, potassium, chloride and CO2 all normal. Anion gap normal. Renal function is normal. His total protein is 6. His albumin is 2.7. His cortisol 23. Calcium is 7.2. Chest x-ray shows bilateral infiltrates. They are consistent probably with heart failure more than anything else. Medications are reviewed. In addition to the drips, the other medications are reviewed and are appropriate. For antibiotics, he remains on Zosyn. Microbiologic data thus far is all negative. The rest of the medications are reviewed and are appropriate. ASSESSMENT: 1. Acute hypoxemic respiratory failure secondary to delirium tremens, cardiogenic pulmonary edema and atrial fibrillation with rapid ventricular response. 2. Status post intubation for respiratory failure on April 29, 2018. 3. Atrial fibrillation with rapid ventricular response, currently being treated by Cardiology. 4. 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 5. Acute alcohol withdrawal with delirium tremens. 6. Electrolyte disturbances including hypomagnesemia, improved. 7. Alcohol-induced thrombocytopenia. 8. Profound agitation and confusion secondary to delirium tremens and alcohol withdrawal syndrome. PLAN: Plan dated May 02, 2018, the patient's sedation will be held. He is probably not ready for weaning and extubation. We will drop the PEEP from 10 to 5. Blood gases are improved. Chest x-ray shows fluid overload. The 24 hour Is and Os 4 L ahead. He will get some Lasix. We will see if we cannot minimize the patient's level of sedation. I did talk to the mother. No additional recommendations are made. Prognosis is very guarded. We will continue to follow. Appreciate input by Cardiology. CRITICAL CARE TIME: 35 minutes. MMCINTHIAL / GREGN: [id number] /
[2018-05-02] MEDS: THIAMINE 100 MG TAB PO SCH ×2 (11:03→16:15)
[2018-05-02] MEDS: MULTIVITAMINS, THERA 1 EACH TAB PO SCH (11:03)
[2018-05-02] MEDS: FOLIC ACID 1 MG TAB PO SCH (11:03)
--- NOTE | 2018-05-02 11:37 | P.PN ---
Subjective Progress Note Date: 05/02/18 Principal diagnosis: Acute hypoxic respiratory failure, alcohol withdrawals, atrial fibrillation with RVR 38-year-old male with PMH of heavy alcohol abuse initially presented to the ED for chest pain, shortness of breath, palpitations and tremors. He had been noted to be drinking 1 pint of vodka daily for the past month since his friend' s . Patient was noted to be in atrial fibrillation with RVR with chest x- ray showing pulmonary edema. He also had an echocardiogram which showed an ejection fraction less than 20%. Patient was intubated on 04/29/2018 to protect his airway. Patient was seen and examined. No acute events overnight. Patient remains intubated. Rate of 24, tidal volume of 450, FiO2 of 40% and PEEP of 5. Norepinephrine has been discontinued. Patient is currently sedated with propofol and fentanyl. Esmolol, digoxin and amiodarone IV is continued for atrial fibrillation with RVR, heart rate in the 130s. ABG shows pH 7.40, pCO2 42 , HCO3 25. Objective - Vital Signs Vital signs: Vital Signs Temp 99 F 05/02/18 08:00 Pulse 126 H 05/02/18 11:13 Resp 24 05/02/18 10:30 BP 91/75 05/02/18 09:00 Pulse Ox 95 05/02/18 10:30 Intake & Output 05/01/18 05/02/18 05/02/18 18:59 06:59 18:59 Intake Total 3402.571 2978.471 877.167 Output Total 1500 765 2754 Balance 2182.571 2013.471 -847.833 Weight 140.8 kg 143 kg Intake: IV 1186 1439 447 Amiodarone 450 mg In 32 Dextrose 5% in Water 250 ml @ 0.5 MG/MIN 16.66 mls /hr IV .Q15H1M [facility] Rx#: [id number] Piperacillin-Tazobactam 3 150 100 100 .375 gm In Sodium Chloride 0.9% 100 ml @ 25 mls/hr IVPB Q8HR [facility] Rx# :[id number] Pressure bag 36 39 15 Sodium Chloride 0.9% 1, 1000 1300 300 000 ml @ 50 mls/hr IV . Q20H [facility] Rx#:[id number] Intake, IV Titration 2408.916 5868.471 320.167 Amount Amiodarone 450 mg In 231.644 Dextrose 5% in Water 250 ml @ 1 MG/MIN 33.33 mls/ hr IV .Q7H31M [facility] Rx#: [id number] Esmolol in Sodium 450.031 250 Chloride Pmx 2.5 gm In Saline 1 250ml.bag @ 10 MCG/KG/MIN 8.3 mls/hr IV .Q24H [facility] Rx#:[id number] Lactated Ringers 1,000 ml 1000 @ 999 mls/hr IV .Q1H1M [facility] Rx#:[id number] Magnesium Sulfate-D5w Pmx 100 1 gm In Dextrose/Water 1 100ml.bag @ 100 mls/hr IVPB Q1H [facility] Rx#: [id number] Norepinephrine 4 mg In 10.25 209.312 Sodium Chloride 0.9% 250 ml @ Titrate IV .Q0M [facility] Rx#:[id number] Propofol 1,000 mg In 510.39 359.032 200.000 Empty Bag 1 bag @ Titrate IV .Q0M [facility] Rx#: [id number] fentaNYL (PF) 2,500 mcg 15.9 59.483 20.167 In Sodium Chloride 0.9% 200 ml @ 50 MCG/HR 5 mls/ hr IV .Q24H [facility] Rx#: [id number] Tube Feeding 200 340 80 Other 30 90 30 Output: Urine 4035 127 4057 Other: Voiding Method Indwelling Catheter Indwelling Catheter ABP, PAP, CO, CI - Last Documented Arterial Blood Pressure 94/56 - Exam General: [non toxic], [no distress], [appears at stated age] Derm: [warm], [dry] Head: [atraumatic], [normocephalic], [symmetric] Eyes: [EOMI], [no lid lag], [anicteric sclera] Mouth: [no lip lesion], [mucus membranes moist] Cardiovascular: [tachycardia, irregularly irregular], [positive DP pulse bilateral] Lungs: [Coarse breath sounds bilateral], [no rhonchi, no rales] , [no accessory muscle use] Abdominal: [soft], [ nontender to palpation], [no guarding], [no appreciable organomegaly] Ext: [no gross muscle atrophy], [no edema], [no contractures] Neuro: [no focal neuro deficits] Psych: [Intubated] - Labs CBC & Chem 7: 05/02/18 03:51 05/02/18 03:51 Labs: Abnormal Lab Results - Last 24 Hours (Table) 05/02/18 05/02/18 05/02/18 Range/Units 03:51 03:51 05:10 RBC 4.05 L (4.30-5.90) m/uL MCV 106.4 H (80.0-100.0) fL Plt Count 83 L D (150-450) k/uL Lymphocytes # 0.6 L (1.0-4.8) k/uL ABG HCO3 26 H (21-25) mmol/L ABG Total CO2 27 H (19-24) mmol/L ABG O2 Saturation 98.4 H (94-97) % Calcium 7.2 L (8.4-10.2) mg/dL Total Bilirubin 2.6 H (0.2-1.3) mg/dL AST 79 H (17-59) U/L ALT 123 H (21-72) U/L Total Protein 6.0 L (6.3-8.2) g/dL Albumin 2.7 L (3.5-5.0) g/dL Assessment and Plan Assessment: Assessment and Plan 1. Acute hypoxic respiratory failure: Secondary to delirium tremens, pulmonology edema (due to A-Fib with RVR). Full ventilator support as per MICU attending. Some concerns for PNA (seen on CXR, shows effusions but PNA cannot be excluded) - continue Piperacillin-Tazobactam IV. Continue Lasix 40 mg IV BID (Lasix 40 mg IV x 1 more today). Elevated HOB. Aspiration precautions. FU Daily CXR 2. Seizure like episode: Possible due to DTs. Ativan IV PRN for seizure activity. Full ventilator support with sedation. EEG is non revealing of seizures as per MICU note. 3. A-Fibrillation with RVR: HR in the 130s. Continue Metoprolol 25 mg PO BID. Continue Esmolol IV, Digoxin IV and Amiodorone IV. Telemetry monitoring. Keep K > 4 and Mg > 2. FU Cardiology 4. HFrEF: Echocardiogram shows EF < 20%. This is likely due to EtOH abuse. Ins and Outs. Telemetry monitoring. Keep K > 4 and Mg > 2. Continue beta theodora, would benefit from ACEi and Aldactone. FU Cardiology 5. Thrombocytopenia: Plt 83. Likely from EtOH. DC Heparin products. 6. Macrocytosis: MCV 106.4. Likely from EtOH. B12 and folate are within normal limits. 7. Transaminitis: AST 184 to 110 to 79 ALT 215 to 160 to 123 T. Bili 2.5 to 2.2 to 2.6. Likely from EtOH. 8. EtOH abuse: Patient under general sedation. CIWA protocol with Ativan IV PRN for CIWA > 8. Continue Thiamine 100 mg IV BID, Folic acid 1 mg PO QD. 9. DVT/GI Prophylaxis: Protonix 40 mg IV QD. Heparin 5000 units SUBCUT TID. Continue Full ventilator support. Wean sedation as per MICU attending. Will follow Cardiology in the treatment of atrial fibrillation.
--- NOTE | 2018-05-02 12:16 | PN ---
PROGRESS NOTE Jf is a 38-year-old gentleman who is admitted to hospital with alcohol withdrawal delirium tremens, developed respiratory failure and is currently intubated on vent. There is a question of whether the patient is having seizures. He had an EEG, results are pending at this time. The patient is in atrial fibrillation with poorly controlled ventricular rate. He is on intravenous digoxin and amiodarone. We are not able to give him beta blockers or calcium channel blockers as he is hypotensive and requiring pressors. The patient has cardiomyopathy with an ejection fraction of 25%. His platelet count was low. It is improving. It is around 80 now, but this morning he has had fresh blood from his NG tube aspirate. He is not a candidate for anticoagulation and the plan at this stage for his atrial fibrillation management is rate control. When the blood pressure improves, we can consider adding beta blockers and MANI inhibitors. PHYSICAL EXAMINATION: on exam, patient is intubated, sedated. Heart rate is 120 beats per minute. Blood pressure is 94/56, respiratory rate is 20. Chest exam reveals diminished air entry at the bases. Heart exam reveals first and second heart sounds, irregular rhythm. No murmur. Abdomen is soft. Examination of the extremities did not reveal any edema. Peripheral pulses are palpable. LABS: Labs show a hemoglobin of 13.8, platelet count is 83. Potassium is 4.2. Creatinine is 0.7. AST, ALT are getting better. ASSESSMENT: 1. Persistent atrial fibrillation with poorly controlled ventricular rate. 2. Thrombocytopenia. 3. Alcohol withdrawal, possible seizures. 4. Cardiomyopathy with severe left ventricular dysfunction. PLAN: Will continue with rate control measures. MMODL / IJN: [id number] /
[2018-05-02] MEDS: NOREPINEPHRINE 4 MG in SODIUM CHLORIDE 0.9% 250 ML IV SCH (12:44)
[2018-05-02] MEDS: fentaNYL (PF) 2,500 MCG in SODIUM CHLORIDE 0.9% 200 ML IV SCH (20:14)
[2018-05-02] MEDS ORDERED: diphenhydrAMINE 50 MG/ML 1 ML VIAL IVP STA (22:39)
--- NOTE | 2018-05-02 22:43 | P.PN ---
Progress Note - Text Progress Note Date: 05/02/18 I was called by RN, to evaluate patient rash, it was noticed a day or two ago , was confined around his groin area, but now spreading out involving his upper thighs, flanks , groin, up to the side of the chest bilaterally, its warm to the touch, blanchable. patient otherwise intubated and sedated, chest did not sound wheezy. mucus membranes over his mouth, eyes, and penis, are unremarkable. suspected allergic reaction to possibly penicillin, no clear history of intolerance or allergy in the past, however, family are not sure. plan stop zosyn for now , it was started as PPx anyways one dose of IV benadryl add pepcid IV continue to monitor and reevaluate rash in AM.
[2018-05-02] MEDS: FAMOTIDINE 20 MG/2 ML VIAL IV SCH (23:03)
[2018-05-03] MEDS: IPRATROPIUM-ALBUTEROL 3 ML NEB INHALATION SCH ×5 (03:00→20:33)
[2018-05-03] MEDS: AMIODARONE 450 MG in DEXTROSE 5% IN WATER 250 ML IV SCH ×2 (03:00)
[2018-05-03 04:20] LABS: ABG Base Excess 0.9 mmol/L; ABG HCO3 25 mmol/L (21-25); ABG Oxygen Saturation 99.4 % (94-97); ABG PCO2 38 mmHg (35-45); ABG PH 7.43 (7.35-7.45); ABG PO2 122 mmHg (83-108); ABG TCO2 26 mmol/L (19-24)
[2018-05-03] MEDS: ESMOLOL IN SODIUM CHLORIDE PMX 2.5 GM in SALINE 1 250ML.BAG IV SCH ×2 (04:45→11:26)
[2018-05-03] MEDS: PROPOFOL 1,000 MG in EMPTY BAG 1 BAG IV SCH (05:07)
[2018-05-03 05:33] LABS: Basophils % (A) 0 %; Eosinophils # (A) 0.3 k/uL (0-0.7); Eosinophils % (A) 4 %; HCT 43.9 % (39.0-53.0); HGB 13.7 gm/dL (13.0-17.5); Lymphocytes # (A) 0.4 k/uL (1.0-4.8); Lymphocytes % (A) 6 %; MCH 33.2 pg (25.0-35.0); MCHC 31.1 g/dL (31.0-37.0); MCV 106.6 fL (80.0-100.0); Macrocytosis Moderate; Mean Platelet Volume 8.3; Monocytes # (A) 0.5 k/uL (0-1.0); Monocytes % (A) 8 %; Neutrophils # (A) 5.2 k/uL (1.3-7.7); Neutrophils % (A) 80 %; Platelet Count 119 k/uL (150-450); RBC 4.12 m/uL (4.30-5.90); RDW 15.1 % (11.5-15.5); WBC 6.5 k/uL (3.8-10.6)
[2018-05-03 06:31] LABS: Anion Gap 7 mmol/L; Blood Urea Nitrogen 11 mg/dL (9-20); Calcium 7.7 mg/dL (8.4-10.2); Carbon Dioxide 25 mmol/L (22-30); Chloride 106 mmol/L (98-107); Glucose 100 mg/dL (74-99); Sodium 138 mmol/L (137-145)
[2018-05-03 06:43] LABS: Magnesium 1.8 mg/dL (1.6-2.3); Phosphorus 3.5 mg/dL (2.5-4.5); Potassium 4.6 mmol/L (3.5-5.1)
[2018-05-03] MEDS ORDERED: FUROSEMIDE 10 MG/ML 4 ML VIAL IV STA (07:08)
[2018-05-03] MEDS ORDERED: Magnesium Replacement Protocol 1 EACH MISC MISCELLANE PRN (07:09)
[2018-05-03] MEDS: fentaNYL (PF) 2,500 MCG in SODIUM CHLORIDE 0.9% 200 ML IV SCH (07:41)
[2018-05-03] MEDS: LORazepam 2 MG/ML INJ IV PRN ×3 (08:37→22:15)
--- NOTE | 2018-05-03 08:55 | EEG ---
ELECTROENCEPHALOGRAM REPORT DATE OF EE05/01/2018 ELECTROENCEPHALOGRAM (EEG): TECHNIQUE: A routine 18-channel EEG was performed with video using the 10-20 international system. HISTORY: Seizures. Patient presented to the emergency room on 04/28/2018 with shortness of breath, chest pain, alcohol withdrawal syndrome, in atrial fibrillation. Patient was found to have pulmonary edema and atrial fibrillation with RVR. Today at approximately 11:21 a.m. the patient had a seizure-like event; patient's legs stiffened. STUDY DURATION: 32 minutes. FINDINGS: BACKGROUND: A sustained posterior-dominant rhythm was not seen. ACTIVATION: Hyperventilation not performed. PHOTIC STIMULATION: No driving seen. SLEEP: Occasional sleep spindles were noted. ABNORMALITIES: This EEG demonstrated a modified burst suppression pattern. In particular, diffuse synchronous and asynchronous delta and theta range slowing was seen with superimposed faster, beta frequencies. This was by relative periods of electrical suppression lasting approximately 9 seconds. Please note that one channel of this EEG was dedicated to EKG at times. It did not demonstrate a sinus rhythm. IMPRESSION: Abnormal EEG. This EEG demonstrated a modified burst suppression pattern. The burst consisted of diffuse synchronous and asynchronous low amplitude theta delta range slowing with superimposed faster, beta frequencies. These findings are not epileptiform in nature. These findings indicate severe diffuse cerebral dysfunction as may be seen in a toxic metabolic encephalopathy. These findings may also be in part due to medication effect. No seizures were recorded. No epileptiform activity was present. These findings were called to the ICU physician taking care of the patient at 3:45 p.m. on 05/01/2018. MMODL / IJN: [id number] /
--- NOTE | 2018-05-03 09:25 | PN ---
PROGRESS NOTE DATE OF SERVICE: 05/03/2018 This is a 38-year-old who was admitted over the weekend by my partner. He presented with hypoxemic respiratory failure secondary to delirium tremens as well as a history of cardiogenic pulmonary edema in atrial fibrillation with RVR. He was admitted on the 28 of April and intubated the following day on the . The patient remains on the ventilator. He is on the volume assist-control mode rate of 24, tidal volume 450, FiO2 of 40% and PEEP of 10. The PEEP was dropped from 10 to 5. Arterial blood gases today show a pO2 of 122 and pCO2 of 38 and pH if 7.43. His 24 hour I and O is -630 mL. He is going to get some additional Lasix today 40 mg IV push. His microbiologic studies have been negative. He remains on a number of drips including esmolol at 50 mcg/kg per minute, fentanyl at 50 mcg/hour, amiodarone at 0.5 mg/minute, propofol at 40 mcg/kg per minute. Levophed is off, saline at 40 mL an hour and Vital high-protein at 20 with a goal of 20 mL an hour. His chest x-ray is improved and his oxygenation has improved. I blame that on the diuretics that he got yesterday. Neurologically, he still is a bit agitated, but he is improved. Current vital signs are reviewed. His temperature is 99.8, his heart rates is anywhere from 116 up to 133. It is irregular and consistent with atrial fibrillation. His respiratory rate varies from 26 to 35. His blood pressure is 95/60, and his saturations are 99%. Appears in no acute distress, although he is somewhat agitated and fighting the ventilator. HEENT examination is grossly unremarkable. There is an orally placed endotracheal tube and NG tube. The patient does respond somewhat to his name being called out. Neck is supple. Full range of motion. No adenopathy. Cardiovascular examination reveals a regular rhythm and rate. Heart rate 125. It is atrial fibrillation. No murmur. Lungs reveal coarse rhonchi. There is bibasilar crackles. Breath sounds equal, but diminished throughout. Abdomen is soft. Bowel sounds are heard. Extremities are intact. No cyanosis, clubbing, or edema. Skin without rash. Neurologic examination is difficult to evaluate. Microbiologic studies are negative. LABS: Reviewed. White count 6.5, hemoglobin 13.7, hematocrit 43.9, platelet count 119,000. Sodium potassium chloride CO2 all normal. Anion gap is normal at 7. BUN and creatinine were 11 and 0.65. The rest of the labs are okay. Cortisol level from a couple days ago was 23. Medications are reviewed. In addition to the what I mentioned, his other medications appear to be appropriate. He is getting GI and DVT prophylaxis. ASSESSMENT: 1. Acute hypoxemic respiratory failure secondary to delirium tremens, cardiogenic pulmonary edema, and atrial fibrillation with RVR. 2. Status post intubation for respiratory failure on April 29, 2018. 3. Atrial fibrillation with RVR, currently being treated by Cardiology with amiodarone and esmolol drips. 4. 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 5. Acute alcohol withdrawal syndrome with delirium tremens. 6. Profound electrolyte disturbances, improved. 7. Alcohol use thrombocytopenia. 8. Profound agitation and confusion secondary to delirium tremens and alcohol withdrawal syndrome. PLAN: The patient will have his sedation cut back. Will see if we cannot move toward weaning and extubation. He may or may not be ready. He still gets very agitated when the sedation is reduced. A family member is in the room and will ask her to see if she cannot calm him down. He will get some additional Lasix today. His I's and O's are - 630 over the last 24 hours. His oxygenation is improved. He remains on nutrition. Norepinephrine has been weaned off. His PEEP will be reduced from 10 to 5. Additional recommendations and suggestions are forthcoming. His overall prognosis is very guarded. Critical care time 34 minutes. MMODL / IJN: [id number] /
[2018-05-03] MEDS: CHLORHEXIDINE GLUCONATE 15 ML CUP MUCOUS MEM SCH (10:50)
[2018-05-03] MEDS: ASPIRIN 325 MG TAB PO SCH (10:50)
[2018-05-03] MEDS: FAMOTIDINE 20 MG/2 ML VIAL IV SCH (10:55)
[2018-05-03] MEDS ORDERED: methylPREDNISolone SOD SUCCI 125 MG/2 ML VIAL IV STA (11:05)
[2018-05-03] MEDS: HEPARIN SODIUM,PORCINE 5,000 UNIT/ML 1 ML VIAL SQ SCH (11:06)
[2018-05-03] MEDS: PANTOPRAZOLE 40 MG/10 ML VIAL IV SCH (11:06)
[2018-05-03] MEDS: DIGOXIN 250 MCG/ML 2 ML AMP IVP SCH (11:07)
[2018-05-03] MEDS: MAGNESIUM SULFATE-D5W PMX 1 GM in DEXTROSE/WATER 1 100ML.BAG IVPB SCH ×2 (11:10→14:24)
--- NOTE | 2018-05-03 11:27 | XR ---
EXAMINATION TYPE: XR chest 1V DATE OF EXAM: 05/03/2018 COMPARISON: Prior chest x-ray 05/02/2018 HISTORY: Intubated TECHNIQUE: Single frontal view of the chest is obtained. FINDINGS: Endotracheal tube and NG tube are overlying appropriate positions, there are overlying car diac leads. Patient is rotated. Right costophrenic angle not included on exam. Bibasilar increased de nsity persists, there is no pneumothorax. Heart remains enlarged. IMPRESSION: Similar findings. Correlate for lower lung pneumonia, edema, atelectasis, effusion. Card iomegaly. Follow-up recommended.
[2018-05-03 11:48] LABS: Glucose,Whole Blood 91 mg/dL (75-99)
[2018-05-03] MEDS ORDERED: METOPROLOL TARTRATE 5 MG/5 ML VIAL IVP PRN (12:09)
[2018-05-03] MEDS ORDERED: METOPROLOL SUCCINATE (ER) 25 MG TAB.ER.24H PO STA (12:21)
--- NOTE | 2018-05-03 12:52 | PN ---
PROGRESS NOTE Jf is a 38-year-old gentleman with history of EtOH abuse, cardiomyopathy, atrial fibrillation. He was intubated on vent. This morning he is extubated, does not have any bleeding issues. Heart rate is still poorly controlled on IV amiodarone and esmolol. Will gradually taper and stop the esmolol and continue the digoxin. Platelet count is improving. We are going to stop the subcu heparin and start him on IV heparin, blood pressure tolerating will start him on a beta theodora and MANI inhibitor and my aim is to control his heart rate, anticoagulate him and consider cardioversion down the road, but he remains in AFib and the heart rate remains persistently poorly controlled. We may have to go ahead and cardiovert him. PHYSICAL EXAM: Heart rate is 130 beats per minute, irregular, blood pressure is 104/60, respiratory rate is 18. Chest exam reveals good air entry bilaterally. Heart exam reveals first and second heart sounds, irregular rhythm. Abdomen is soft. Exam of extremities did not reveal any edema. Peripheral pulses are felt. ASSESSMENT: Persistent atrial fibrillation with poorly controlled ventricular rate. PLAN: I will start the patient on IV heparin, beta blockers, MANI inhibitors. Continue the amiodarone. MMODL / IJN: [id number] /
--- NOTE | 2018-05-03 13:43 | P.PN ---
Subjective Progress Note Date: 05/03/18 (delayed charting seen at 800) Principal diagnosis: alcohol withdrawal Patient is a 38-year-old male past medical history of alcohol abuse ( history of seizure with withdrawal in the past) who presented to ED with delirium tremens and A fib. In the emergency department he underwent an extensive evaluation. His EKG demonstrated A. fib, troponin was mildly elevated at 0.04, and AST and ALP were elevated. He was also found to have thrombocytopenia with platelets 53. She was started on CIWA protocol with Ativan Cardizem drip. Arrangements are made for admission to the regular medical floor. Overnight his CIWA scale worsened and he became more agitated, was also difficult control his A. fib and he subsequently was transferred to the ICU. He was emergently intubated for helping controlling his DTs. He was started on esmolol drip. He was seen by cardiology and underwent an echocardiogram which showed an ejection fraction of less than 20%. His blood pressure decreased so leave affect was added to the esmolol to maintain blood pressures. He also had been started on propofol in addition to Ativan. He developed a rash overnight on 05/02 to his groin and flanks. Patient seen and examined at bedside. He remained sedated on vent, not following commands, appears agitated and diaphoretic. No acute event overnight other than his new rash. Objective - Vital Signs Vital signs: Vital Signs Temp 99.8 F H 05/03/18 04:30 Pulse 133 H 05/03/18 08:30 Resp 26 H 05/03/18 08:30 BP 115/84 05/03/18 00:30 Pulse Ox 81 L 05/03/18 08:30 Intake & Output 05/02/18 05/03/18 05/03/18 18:59 06:59 18:59 Intake Total 2184.600 1818.412 462.392 Output Total 3730 900 80 Balance -1545.400 918.412 382.392 Weight 143 kg 147.5 kg 147.5 kg Intake: IV 950 636 53 Amiodarone 450 mg In 64 Dextrose 5% in Water 250 ml @ 0.5 MG/MIN 16.66 mls /hr IV .Q15H1M [facility] Rx#: [id number] Piperacillin-Tazobactam 3 200 .375 gm In Sodium Chloride 0.9% 100 ml @ 25 mls/hr IVPB Q8HR [facility] Rx# :[id number] Pressure bag 36 36 3 Sodium Chloride 0.9% 1, 650 600 50 000 ml @ 50 mls/hr IV . Q20H [facility] Rx#:[id number] Intake, IV Titration 919.688 7300.412 409.392 Amount Amiodarone 450 mg In 250 Dextrose 5% in Water 250 ml @ 0.5 MG/MIN 16.66 mls /hr IV .Q15H1M [facility] Rx#: [id number] Esmolol in Sodium 398.708 500 250.692 Chloride Pmx 2.5 gm In Saline 1 250ml.bag @ 10 MCG/KG/MIN 8.3 mls/hr IV .Q24H [facility] Rx#:[id number] Magnesium Sulfate-D5w Pmx 100 1 gm In Dextrose/Water 1 100ml.bag @ 100 mls/hr IVPB Q1H [facility] Rx#: [id number] Norepinephrine 4 mg In 23.125 131.188 Sodium Chloride 0.9% 250 ml @ Titrate IV .Q0M [facility] Rx#:[id number] Propofol 1,000 mg In 400.000 281.224 100 Empty Bag 1 bag @ Titrate IV .Q0M [facility] Rx#: [id number] fentaNYL (PF) 2,500 mcg 32.767 58.7 In Sodium Chloride 0.9% 200 ml @ 50 MCG/HR 5 mls/ hr IV .Q24H [facility] Rx#: [id number] Tube Feeding 220 20 Other 60 Output: Urine 3730 900 80 Other: Voiding Method Indwelling Catheter Indwelling Catheter ABP, PAP, CO, CI - Last Documented Arterial Blood Pressure 95/60 - Exam General: ill appearing, + diaphoretic, no distress, appears at stated age Derm: Warm erythematous rash from grinding up trunk, not raised, no scale, no exudate warm, dry Head: atraumatic, normocephalic, symmetric Eyes: EOMI, no lid lag, anicteric sclera Mouth: no lip lesion, mucus membranes moist Cardiovascular: S1S2 reg, no murmur, positive posterior tibial pulse bilateral, Lungs: CTA bilateral, no rhonchi, no rales , + accessory muscle use, on vent Abdominal: soft, nontender to palpation, no guarding, no appreciable organomegaly Ext: no gross muscle atrophy, no edema, no contractures Neuro: PERRL, + cough, + gag, Moving all 4 extremities independently Psych: eyes open, not following commands. - Labs CBC & Chem 7: 05/03/18 04:55 05/03/18 04:55 Labs: Abnormal Lab Results - Last 24 Hours (Table) 05/03/18 05/03/18 05/03/18 Range/Units 04:17 04:55 04:55 RBC 4.12 L (4.30-5.90) m/uL MCV 106.6 H (80.0-100.0) fL Plt Count 119 L (150-450) k/uL Lymphocytes # 0.4 L (1.0-4.8) k/uL ABG pO2 122 H (83-108) mmHg ABG Total CO2 26 H (19-24) mmol/L ABG O2 Saturation 99.4 H (94-97) % Creatinine 0.65 L (0.66-1.25) mg/dL Glucose 100 H (74-99) mg/dL Calcium 7.7 L (8.4-10.2) mg/dL Assessment and Plan Assessment: Claudia browne -Continue with CIWA protocol, if not triggering with addition of propofol may need scheduled Ativan -Thiamine and folate supplementation A fib with RVR, elevated troponin due to demand ischemia from A fib with RVR -On oral amiodarone, esmolol, digoxin -Heparin drip - cardio recs - optomize electrolytes Rash, likely allergic versus contact dermatitis - solumedrol X 1, off zosyn, follow course daily 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%, 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 -Continue with esmolol, add aldactone and lisinopril once blood pressure is stable, further cardiac evaluation once stabilized -Cardiology recommendations Acute respiratory failure -Vent management per pulmonary critical care -Currently performing weaning trial Thrombocytopenia and transaminitis - alcohol cessation - improving - follow levels Possible seizure episode - seizure precautions - EEG no sieuzre activity DVT prophylaxis: Heparin gtt Discussed with: Nursing, respiratory Anticipated discharge: [3-4 days] Anticipated discharge place: [home vs rehab] A total of [35] minutes was spent on the care of this complex patient more than 50% of the time was spent in counseling and care coordination.
[2018-05-03] MEDS: HEPARIN SOD,PORK IN 0.45% NACL 25,000 UNIT in 0.45% NACL 1 250ML.BAG IV SCH (14:00)
[2018-05-03 14:14] LABS: INR 1.3 (<1.2); Partial Thromboplastin Time 28.9 sec (22.0-30.0)
[2018-05-03] MEDS: SODIUM CHLORIDE 0.9% 1,000 ML IV SCH (14:23)
[2018-05-03] MEDS ORDERED: ACETAMINOPHEN TAB 325 MG TAB PO PRN (15:16)
[2018-05-03] MEDS ORDERED: MORPHINE SULFATE 2 MG/ML SYRINGE IVP PRN (15:17)
[2018-05-03] MEDS: HYDROcodone/APAP 5-325MG 1 EACH TAB PO PRN ×2 (15:40→22:18)
[2018-05-03] MEDS: ONDANSETRON 4 MG/2 ML VIAL IVP PRN ×2 (17:19→22:17)
[2018-05-03] MEDS: THIAMINE 100 MG TAB PO SCH ×2 (17:47→20:52)
[2018-05-03] MEDS: FOLIC ACID 1 MG TAB PO SCH (17:47)
[2018-05-03] MEDS: MULTIVITAMINS, THERA 1 EACH TAB PO SCH (17:48)
[2018-05-03] MEDS: AMIODARONE 200 MG TAB PO SCH ×2 (17:50→22:16)
[2018-05-03] MEDS: LISINOPRIL 2.5 MG TAB PO SCH (19:58)
[2018-05-03] MEDS ORDERED: IPRATROPIUM-ALBUTEROL 3 ML NEB INHALATION PRN (21:12)
[2018-05-04] MEDS: HEPARIN SODIUM,PORCINE 5,000 UNIT/ML 1 ML VIAL IV PRN ×3 (00:57→17:05)
[2018-05-04 04:00] LABS: Basophils % (A) 0 %; Eosinophils # (A) 0.1 k/uL (0-0.7); Eosinophils % (A) 2 %; HCT 42.7 % (39.0-53.0); HGB 14.1 gm/dL (13.0-17.5); Lymphocytes # (A) 0.6 k/uL (1.0-4.8); Lymphocytes % (A) 10 %; MCH 34.4 pg (25.0-35.0); MCV 104.3 fL (80.0-100.0); Macrocytosis Moderate; Mean Platelet Volume 8.7; Monocytes # (A) 0.6 k/uL (0-1.0); Monocytes % (A) 11 %; Neutrophils # (A) 4.3 k/uL (1.3-7.7); Neutrophils % (A) 76 %; Platelet Count 142 k/uL (150-450); RDW 14.5 % (11.5-15.5); WBC 5.6 k/uL (3.8-10.6)
[2018-05-04 04:13] LABS: Anion Gap 7 mmol/L; Blood Urea Nitrogen 14 mg/dL (9-20); Calcium 8.1 mg/dL (8.4-10.2); Carbon Dioxide 27 mmol/L (22-30); Chloride 105 mmol/L (98-107); Glucose 102 mg/dL (74-99); Magnesium 2.1 mg/dL (1.6-2.3); Phosphorus 4.1 mg/dL (2.5-4.5); Potassium 4.3 mmol/L (3.5-5.1); Sodium 139 mmol/L (137-145)
[2018-05-04] MEDS: HYDROcodone/APAP 5-325MG 1 EACH TAB PO PRN (05:23)
[2018-05-04] MEDS: SODIUM CHLORIDE 0.9% 1,000 ML IV SCH (06:33)
[2018-05-04] MEDS: ONDANSETRON 4 MG/2 ML VIAL IVP PRN (07:01)
[2018-05-04] MEDS: IPRATROPIUM-ALBUTEROL 3 ML NEB INHALATION SCH ×4 (07:49→21:15)
--- NOTE | 2018-05-04 08:00 | XR ---
EXAMINATION TYPE: XR chest 1V DATE OF EXAM: 05/04/2018 COMPARISON: Prior chest x-ray 05/03/2018 HISTORY: Extubated, abnormal chest x-ray TECHNIQUE: Single frontal view of the chest is obtained. FINDINGS: Interval improved visualization of the hemidiaphragms. Heart remains enlarged. Endotrachea l tube has been removed as has the NG tube. There are overlying cardiac leads. Minimal residual patch y basilar density. IMPRESSION: Improvement in aeration. Interval extubation. Cardiomegaly.
[2018-05-04] MEDS: DIGOXIN 250 MCG/ML 2 ML AMP IVP SCH (08:22)
[2018-05-04] MEDS: AMIODARONE 200 MG TAB PO SCH ×2 (08:27→21:42)
[2018-05-04] MEDS: ASPIRIN 325 MG TAB PO SCH (08:27)
[2018-05-04] MEDS: LISINOPRIL 2.5 MG TAB PO SCH (08:27)
[2018-05-04] MEDS: PANTOPRAZOLE 40 MG/10 ML VIAL IV SCH (08:28)
[2018-05-04] MEDS: HEPARIN SOD,PORK IN 0.45% NACL 25,000 UNIT in 0.45% NACL 1 250ML.BAG IV SCH (09:42)
--- NOTE | 2018-05-04 09:53 | PN ---
PROGRESS NOTE DATE OF SERVICE: May 04, 2018 This is a 38-year-old male who presented over the weekend to my partner with hypoxemic respiratory failure secondary to delirium tremens as well as a history of cardiogenic pulmonary edema and atrial fibrillation with RVR. He was admitted to the hospital on the 28 of April and on the following day the , he was intubated. The patient was successfully extubated yesterday. Prior to that, he was on an esmolol drip and amiodarone drip to control his atrial fibrillation with RVR. Currently he is doing much better. He is much more awake and alert. He was successfully extubated yesterday. Currently, he is on 2 L nasal cannula. He is on IV heparin via weight based protocol and a saline IV at 50 mL an hour. Chest x-ray shows dramatic improvement in his aeration. Microbiologic studies have been negative. Obviously, he is no longer on the esmolol, fentanyl, amiodarone, propofol and Levophed. He is also not on tube feeds anymore. He is a bit foggy. But the patient does look much improved. Current vital signs are reviewed. Temperature is 98.7, heart rate is about 110 beats per minute and irregular, respiratory rate is 17, blood pressure 100/68, and 4 L saturation is 96%. He appears in no acute distress. HEENT examination is grossly unremarkable. Nasal O2 noted. NECK: Supple. Full range of motion. No adenopathy. Neck veins are flat. Cardiovascular examination reveals a regular rhythm and rate. Heart rate about 110 beats per minute. No murmur. Heart sounds are distant. Lungs reveal a few scattered rhonchi. No wheezes or crackles. Abdomen is soft. Bowel sounds are not noted. Extremities are intact. No cyanosis, clubbing, or edema. Skin without rash. Neurologic examination is difficult to assess, but he does move all 4 extremities and certainly is much more awake and alert. He mumbles. Laboratory data reviewed. White count 5.6, hemoglobin 14.1, hematocrit 42.7, platelet count 142,000. PTT is 36.2. Sodium, potassium, chloride, CO2 all normal. BUN and creatinine were 14 and 0.61. Anion gap is normal. Microbiologic studies are negative. Chest x-ray is much improved. Medications are reviewed. ASSESSMENT: 1. Acute hypoxemic respiratory failure secondary to delirium tremens, cardiogenic pulmonary edema and atrial fibrillation with rapid ventricular response. 2. Status post intubation for respiratory failure on April 29, 2018. 3. Successful extubation on May 03, 2018. 4. Atrial fibrillation with rapid ventricular response, managed by Cardiology. 5. 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 6. Acute alcohol withdrawal syndrome with delirium tremens. 7. Profound electrolyte disturbances, improved. 8. Alcohol induced thrombocytopenia, improved. 9. Profound agitation and confusion secondary to delirium tremens and alcohol withdrawal syndrome, much improved. PLAN: The patient was extubated successfully yesterday. We will continue to follow closely. Labs, x-rays and medications are all reviewed. The patient is still a bit in a foggy. He has remaining on heparin via weight based protocol. His chest x-ray shows improved aeration. We will continue to follow. Prognosis is guarded. CRITICAL CARE TIME: 33 minutes. MMCINTHIAL / GREGN: [id number] /
[2018-05-04] MEDS: THIAMINE 100 MG TAB PO SCH ×2 (12:00→17:04)
--- NOTE | 2018-05-04 12:08 | P.PN ---
Subjective Progress Note Date: 05/04/18 Principal diagnosis: alcohol withdrawal Patient is a 38-year-old male past medical history of alcohol abuse ( history of seizure with withdrawal in the past) who presented to ED with delirium tremens and A fib. In the emergency department he underwent an extensive evaluation. His EKG demonstrated A. fib, troponin was mildly elevated at 0.04, and AST and ALP were elevated. He was also found to have thrombocytopenia with platelets 53. She was started on CIWA protocol with Ativan Cardizem drip. Arrangements are made for admission to the regular medical floor. Overnight his CIWA scale worsened and he became more agitated, was also difficult control his A. fib and he subsequently was transferred to the ICU. He was emergently intubated for helping controlling his DTs. He was started on esmolol drip. He was seen by cardiology and underwent an echocardiogram which showed an ejection fraction of less than 20%. His blood pressure decreased so leave affect was added to the esmolol to maintain blood pressures. He also had been started on propofol in addition to Ativan. He developed a rash overnight on 05/02 to his groin and flanks. H was sucessfully extubated on 05/03. His esmolol and levophed were stopped and he was started on metoprolol and lisinopril. Patient seen and examined at bedside with girlfriend. He reports that he still feels like he is having a hard time remembering. He feels slightly short of breath. No chest pain, no nausea, vomiting, diarrhea. Still feeling very weak and tired. Asking about Antabuse. We had a long discussion in that hip believe he would be more appropriate for a full rehab program for alcoholism Antabuse is not associated with high rates of continued alcohol abstinence. We discussed his hospital course including cardiomyopathy and A. fib with RVR. Girlfriend with questions regarding long-term prognosis and plan. Questions answered to the best my ability. He continues to have a rash in his groin and his right flank. It is very itchy. Objective - Vital Signs Vital signs: Vital Signs Temp 99.2 F 05/04/18 08:00 Pulse 123 H 05/04/18 08:02 Resp 12 05/04/18 08:00 BP 101/88 05/04/18 08:00 Pulse Ox 90 L 05/04/18 05:00 Intake & Output 05/03/18 05/04/18 05/04/18 18:59 06:59 18:59 Intake Total 1245.392 745.667 237.030 Output Total 2580 1315 120 Balance -1334.608 -569.333 117.030 Weight 147.5 kg 142.4 kg Intake: IV 836 636 106 Magnesium Sulfate-D5w Pmx 200 1 gm In Dextrose/Water 1 100ml.bag @ 100 mls/hr IVPB Q1H [facility] Rx#: [id number] Pressure bag 36 36 6 Sodium Chloride 0.9% 1, 600 600 100 000 ml @ 50 mls/hr IV . Q20H [facility] Rx#:[id number] Intake, IV Titration 409.392 109.667 131.030 Amount Esmolol in Sodium 250.692 Chloride Pmx 2.5 gm In Saline 1 250ml.bag @ 10 MCG/KG/MIN 8.3 mls/hr IV .Q24H [facility] Rx#:[id number] Heparin Sod,Pork in 0.45% 109.667 131.030 NaCl 25,000 unit In 0.45 % NaCl 1 250ml.bag @ 6.78 UNITS/KG/HR 10 mls/hr IV .Q24H [facility] Rx#:[id number] Propofol 1,000 mg In 100 Empty Bag 1 bag @ Titrate IV .Q0M [facility] Rx#: [id number] fentaNYL (PF) 2,500 mcg 58.7 In Sodium Chloride 0.9% 200 ml @ 50 MCG/HR 5 mls/ hr IV .Q24H [facility] Rx#: [id number] Oral 0 Output: Urine 2580 1315 120 Other: Voiding Method Indwelling Catheter Indwelling Catheter Indwelling Catheter ABP, PAP, CO, CI - Last Documented Arterial Blood Pressure 134/129 - Exam General: ill appearing, no distress, appears at stated age Derm: Warm erythematous rash from grinding up trunk, not raised, no scale, no exudate warm, dry Head: atraumatic, normocephalic, symmetric Eyes: EOMI, no lid lag, anicteric sclera Mouth: no lip lesion, mucus membranes moist Cardiovascular: S1S2 reg, no murmur, positive posterior tibial pulse bilateral, Lungs: decreased bs bilateral, no rhonchi, no rales , + accessory muscle use, on vent Abdominal: soft, nontender to palpation, no guarding, no appreciable organomegaly Ext: no gross muscle atrophy, trace edema, no contractures Neuro: Cranial nerves II through XII grossly intact, no focal neuro deficits Psych: Awake, alert to year place, still have fogginess slightly confused - Labs CBC & Chem 7: 05/04/18 03:00 05/04/18 03:00 Labs: Abnormal Lab Results - Last 24 Hours (Table) 05/03/18 05/04/18 05/04/18 Range/Units 13:25 03:00 03:00 RBC 4.10 L (4.30-5.90) m/uL MCV 104.3 H (80.0-100.0) fL Plt Count 142 L (150-450) k/uL Lymphocytes # 0.6 L (1.0-4.8) k/uL PT 13.0 H (9.0-12.0) sec INR 1.3 H (<1.2) APTT (22.0-30.0) sec Creatinine 0.61 L (0.66-1.25) mg/dL Glucose 102 H (74-99) mg/dL Calcium 8.1 L (8.4-10.2) mg/dL 05/04/18 Range/Units 03:00 RBC (4.30-5.90) m/uL MCV (80.0-100.0) fL Plt Count (150-450) k/uL Lymphocytes # (1.0-4.8) k/uL PT (9.0-12.0) sec INR (<1.2) APTT 36.2 H (22.0-30.0) sec Creatinine (0.66-1.25) mg/dL Glucose (74-99) mg/dL Calcium (8.4-10.2) mg/dL Assessment and Plan Assessment: Delerium tremens acute encephalopathy -Continue with CIWA protocol, -Thiamine and folate supplementation -Speech for cognition A fib with RVR, elevated troponin due to demand ischemia from A fib with RVR -On oral amiodarone, metoprolol, digoxin -Heparin drip - cardio recs: Cardioversion 05/05 - optimize electrolytes Rash, likely allergic versus contact dermatitis - Prednisone, off zosyn, follow course daily 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% -Continue with metoprolol and lisinopril, consider aldactone if BP tolerated -Cardiology recommendations Thrombocytopenia and transaminitis - alcohol cessation - improving - follow levels Possible seizure episode - seizure precautions - EEG no sieuzre activity Acute respiratory failure, resolved DVT prophylaxis: Heparin gtt Discussed with: Nursing,Patient, girlfriend Anticipated discharge: 3-[address]: home vs rehab A total of 35 minutes was spent on the care of this complex patient more than 50 % of the time was spent in counseling and care coordination.
--- NOTE | 2018-05-04 13:08 | PN ---
PROGRESS NOTE Jf is a 38-year-old gentleman who was admitted to hospital with alcohol withdrawal, respiratory failure, has cardiomyopathy with severe LV dysfunction. He is currently in A fib, somewhat better controlled now. He is on oral amiodarone, metoprolol, and a small dose of MANI inhibitor. He is on IV heparin which he is going to continue. PHYSICAL EXAMINATION: On exam, heart rate is in the 120s per minute. Blood pressure is 101/80, respiratory rate is 18. Chest exam reveals diminished air entry at the bases. Heart exam reveals first and second heart sounds, irregular rhythm. No murmur. Examination of extremities did not reveal any edema. ASSESSMENT: Persistent atrial fibrillation with poorly controlled ventricular rate. We will continue current medications. I am hoping that his heart rate would slow down so that we can adequately anticoagulate him and cardiovert him, but if necessary, we can always if we have to cardiovert him for rate control we will. LOAN / TRESSA: [id number] /
[2018-05-04] MEDS: MULTIVITAMINS, THERA 1 EACH TAB PO SCH (17:03)
[2018-05-04] MEDS: FOLIC ACID 1 MG TAB PO SCH (17:04)
[2018-05-04] MEDS: predniSONE 20 MG TAB PO SCH (17:04)
[2018-05-04] MEDS: METOPROLOL SUCCINATE (ER) 25 MG TAB.ER.24H PO SCH (19:06)
[2018-05-04] MEDS: diphenhydrAMINE 25 MG CAP PO PRN (23:08)
[2018-05-05] MEDS: HEPARIN SOD,PORK IN 0.45% NACL 25,000 UNIT in 0.45% NACL 1 250ML.BAG IV SCH (02:02)
[2018-05-05] MEDS: HEPARIN SODIUM,PORCINE 5,000 UNIT/ML 1 ML VIAL IV PRN (02:05)
[2018-05-05] MEDS: SODIUM CHLORIDE 0.9% 1,000 ML IV SCH (02:06)
--- NOTE | 2018-05-05 06:07 | XR ---
EXAMINATION TYPE: XR chest 1V portable DATE OF EXAM: 05/05/2018 HISTORY: SOB. REFERENCE: Previous study dated 05/04/2018. FINDINGS: The heart remains enlarged. The lungs appear clear. Pleural spaces are clear. IMPRESSION: CARDIOMEGALY.
[2018-05-05 06:25] LABS: HCT 47.2 % (39.0-53.0); HGB 15.2 gm/dL (13.0-17.5); MCH 33.9 pg (25.0-35.0); MCHC 32.2 g/dL (31.0-37.0); MCV 105.3 fL (80.0-100.0); Macrocytosis Moderate; Mean Platelet Volume 8.1; Platelet Count 189 k/uL (150-450); RBC 4.48 m/uL (4.30-5.90); RDW 14.5 % (11.5-15.5); WBC 5.2 k/uL (3.8-10.6)
[2018-05-05] MEDS: PANTOPRAZOLE 40 MG TABLET PO SCH (07:00)
[2018-05-05 07:19] LABS: Albumin 3.5 g/dL (3.5-5.0); Anion Gap 10 mmol/L; Blood Urea Nitrogen 13 mg/dL (9-20); Carbon Dioxide 23 mmol/L (22-30); Chloride 106 mmol/L (98-107); Glucose 106 mg/dL (74-99); Sodium 139 mmol/L (137-145); Total Bilirubin 1.6 mg/dL (0.2-1.3); Total Protein 7.5 g/dL (6.3-8.2)
[2018-05-05] MEDS: IPRATROPIUM-ALBUTEROL 3 ML NEB INHALATION SCH (07:20)
[2018-05-05 07:37] LABS: ALT 75 U/L (21-72); AST 82 U/L (17-59); Alkaline Phosphatase 87 U/L (38-126); Potassium 4.9 mmol/L (3.5-5.1)
[2018-05-05] MEDS: LISINOPRIL 2.5 MG TAB PO SCH (09:34)
[2018-05-05] MEDS: ASPIRIN 325 MG TAB PO SCH (09:34)
[2018-05-05] MEDS: METOPROLOL SUCCINATE (ER) 25 MG TAB.ER.24H PO SCH (09:34)
[2018-05-05] MEDS: predniSONE 20 MG TAB PO SCH (09:34)
[2018-05-05] MEDS: AMIODARONE 200 MG TAB PO SCH ×2 (09:34→20:43)
[2018-05-05] MEDS: DIGOXIN 250 MCG/ML 2 ML AMP IVP SCH (09:35)
[2018-05-05] MEDS ORDERED: METOPROLOL SUCCINATE (ER) 25 MG TAB.ER.24H PO STA (10:17)
[2018-05-05] MEDS: APIXABAN 5 MG TAB PO SCH ×2 (11:17→20:43)
[2018-05-05] MEDS: MULTIVITAMINS, THERA 1 EACH TAB PO SCH (12:27)
[2018-05-05] MEDS: FOLIC ACID 1 MG TAB PO SCH (12:27)
[2018-05-05] MEDS: THIAMINE 100 MG TAB PO SCH ×2 (12:27→18:13)
[2018-05-05] MEDS: LORazepam 0.5 MG TAB PO PRN ×2 (12:33→20:43)
--- NOTE | 2018-05-05 12:47 | PN ---
PROGRESS NOTE Jf is an 38-year-old gentleman with history of EtOH abuse, alcoholic cardiomyopathy, was admitted to hospital with delirium tremens, developed respiratory failure and had to be intubated. This morning, he is looking better, still remains in AFib with poorly controlled ventricular rate, on amiodarone, beta blockers and MANI inhibitors. I am going to increase the dose of Toprol-XL that he is currently on. He is also on digoxin 250 mcg. The plan is to wait and see if his heart rate will be controlled. If it is, then continue with the medications. I will stop the heparin, start him on Eliquis. Patient may need a ANNETTE cardioversion if he continues to have AFib with poorly controlled ventricular rate. On exam, heart rate is 130 beats per minute, blood pressure is 130/95, respiratory rate is 18, O2 sat is 96%. Chest exam reveals good air entry bilaterally. Heart exam reveals first and second heart sounds, irregular rhythm. Exam of extremities did not reveal edema. Peripheral pulses are felt. Labs show a hemoglobin of 15.2, platelet count is up at 189. Potassium is 4.9, creatinine is 0.5. ASSESSMENT: Persistent atrial fibrillation with poorly controlled ventricular rate. PLAN: Will increase the Toprol-XL to 50 mg daily. Continue the amiodarone, start Eliquis. Continue the digoxin. I will reassess him on Monday. If his heart rate is still poorly controlled, he may undergo cardioversion. LOAN / GREGN: [id number] /
--- NOTE | 2018-05-05 13:47 | PN ---
PROGRESS NOTE DATE OF SERVICE: 05/05/2018 This is a 38-year-old male who presented over last weekend to my partner with hypoxemic respiratory failure secondary to delirium tremens as well as cardiogenic pulmonary edema and atrial fibrillation with RVR. The patient was extubated a couple days ago. The patient had issues while here in the hospital. He was admitted to the hospital on the and on the following day on the , he was intubated. The patient was successfully extubated on the . The patient also has of issues including agitation, confusion, atrial fibrillation, hypertension, etc. Currently doing much better. He is currently on room air. He is getting a saline IV at 50 mL an hour, which can be discontinued. The patient's microbiologic studies have all been negative. We are going to DC the heparin and place him on Eliquis for the atrial fibrillation. We can DC his IV, DC his Gallagher catheter, move him out to 6 selective and allow him to take a shower. The nurse asked me all questions about the patient today. Currently, vital signs are stable. Temperature 98.3, heart rate 100, respiratory rate 18, blood pressure 132/95, mean 107, saturations 94% to 96%. Appears in no acute distress. HEENT examination is grossly unremarkable. Mucous membranes are moist. No oral lesions. No supplemental oxygen noted. Neck is supple. Full range of motion. No adenopathy or thyromegaly. Neck veins are flat. Cardiovascular examination reveals a regular rhythm and rate. S1, S2 normal. Heart rate about 100 beats per minute. Normal S1, S2. No S3, S4. No murmur. Lungs reveal a few scattered rhonchi. Breath sounds are diminished. A few scattered crackles at the bases. Breath sounds are much improved though. They are equal bilaterally. Abdomen is soft. Bowel sounds are heard. No masses or tenderness. Extremities are intact. No cyanosis, clubbing, or edema. Skin without rash. Neurologic examination is brief but nonfocal. LABS: Reviewed. White count 5.2, hemoglobin 15.2, hematocrit 47.2, platelet count 189,000. Sodium, potassium, chloride, CO2 all normal. BUN and creatinine were 13 and 0.53. The rest of the comprehensive metabolic profile looks pretty good. AST is a bit elevated at 82, ALT a bit elevated at 75 and bilirubin a bit elevated at 1.6. Chest x-ray shows significantly improved aeration to both lung guzman. There is cardiomegaly. Medications are reviewed. ASSESSMENT: 1. Acute hypoxemic respiratory failure secondary to delirium tremens, cardiogenic pulmonary edema and atrial fibrillation with RVR. 2. Status post intubation for respiratory failure on April 29, 2018 and successful extubation on May 03, 2018. 3. Atrial fibrillation with RVR, managed by Cardiology. 4. 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 5. Acute alcohol withdrawal syndrome and delirium tremens. 6. Profound electrolyte disturbance, resolved. 7. Alcohol induced thrombocytopenia, improved. 8. Profound agitation and confusion secondary to delirium tremens and alcohol withdrawal syndrome, again much improved. PLAN: The patient's IV will be as continued. Will DC the Gallagher catheter. Will allow him to shower. He will be able to be transferred over to 6 selective later today. Will DC the heparin in lieu of the Eliquis. Microbiologic studies are negative. Will continue to follow closely. No additional recommendations are made at this time. MMODL / IJN: [id number] /
--- NOTE | 2018-05-05 15:24 | P.PN ---
Subjective 38-year-old male admitted with alcohol withdrawal, delirium and A. fib with RVR, . He has been briefly intubated. He is doing better from his encephalopathy standpoint. He continues to be in rapid ventricular response. EF is 20%. Cardiology has been following and orders anticoagulation started amiodarone and digoxin with plan for cardioversion if he does not improve in next 48 hours. Day he does not have any particular complaints. He denies any chest pain shortness of breath palpitations abdominal pain or diarrhea. No dizziness or shortness of breath. He has had some erythematosus rash in his thigh upper thigh area which has been improving. REVIEW OF SYSTEMS: CONSTITUTIONAL: No fever or chills HEENT: No changes in vision or voice CARDIOVASCULAR: no chest pain or abnormal heart beats, or any swelling in ankles or feet. RESPIRATORY: No wheezing or coughing. GASTROINTESTINAL: No abdominal pain, no nausea no vomiting no constipation or diarrhea GENITOURINARY: no any urinary urgency, frequency or burning, and there has been no blood in her urine. no flank pain. MUSCULOSKELETAL: She notes full range of motion of all her joints without pain or swelling. NEUROLOGICAL: , no headache. no vision changes, or fainting. No numbness or tingling. Objective - Vital Signs Vital signs: Vital Signs Temp 98.3 F 05/05/18 08:00 Pulse 135 H 05/05/18 10:00 Resp 20 05/05/18 10:00 BP 132/95 05/05/18 10:00 Pulse Ox 96 05/05/18 10:00 Intake & Output 05/04/18 05/05/18 05/05/18 18:59 06:59 18:59 Intake Total 2106.206 3032.824 550 Output Total 1820 4125 550 Balance 286.206 -1092.176 0 Weight 140.4 kg Intake: IV 636 612 200 Pressure bag 36 12 Sodium Chloride 0.9% 1, 600 600 200 000 ml @ 50 mls/hr IV . Q20H [facility] Rx#:[id number] Intake, IV Titration 270.206 110.824 Amount Heparin Sod,Pork in 0.45% 270.206 110.824 NaCl 25,000 unit In 0.45 % NaCl 1 250ml.bag @ 6.78 UNITS/KG/HR 10 mls/hr IV .Q24H [facility] Rx#:[id number] Oral 1200 2310 350 Output: Urine 1820 4125 550 Other: Voiding Method Indwelling Catheter Indwelling Catheter Indwelling Catheter ABP, PAP, CO, CI - Last Documented Arterial Blood Pressure 109/85 - Exam Vital Signs: I have reviewed the vital signs. GENERAL: Well-nourished, Well-developed , no apparent distress, cooperative Eyes: PERRL, extraoculry movements intact, clear conjunctiva Head: : Atraumatic external nose and ears, oropharyngeal mucosa is moist without lesions or exudates Neck: Symmetric, trachea midline, No thyromegaly, no masses or neck vain pulsation, no neck rigidity CVS: +S1/S2, No murmurs or gallops. Peripheral pulses 2+ and equal in all extremities. RESP: Unlabored respiratory effort. Clear to auscultation bilaterally. Abdomen: Bowel sounds present in all 4 quadrants, Soft to palpation, Nontender/ Nondistended, No hepatosplenomegaly, no hernias or masses, no CVA tnderness Musculoskeletal: Extremities w/o deformity, No cyanosis or clubbing, no joint swelling Skin: Warm, Dry. There is erythematosus rash in his upper thighs area without any blistering papules or disclamation. Patient reports significant improvement comparing to initial presentation Neuro: project builder II-XII grossly intact, motor strenght 5/5 i upper and lower extremities, no clonus, patellar DTRs 2+ and sympetrical Psych: Awake, Alert, & Oriented (AAO) x3 Appropriate mood and affect - Labs CBC & Chem 7: 05/05/18 05:58 05/05/18 05:58 Labs: Abnormal Lab Results - Last 24 Hours (Table) 05/04/18 05/05/18 05/05/18 Range/Units 23:25 05:58 05:58 MCV 105.3 H (80.0-100.0) fL APTT 38.8 H (22.0-30.0) sec Creatinine 0.53 L (0.66-1.25) mg/dL Glucose 106 H (74-99) mg/dL Total Bilirubin 1.6 H (0.2-1.3) mg/dL AST 82 H (17-59) U/L ALT 75 H (21-72) U/L 05/05/18 Range/Units 07:46 MCV (80.0-100.0) fL APTT 48.4 H (22.0-30.0) sec Creatinine (0.66-1.25) mg/dL Glucose (74-99) mg/dL Total Bilirubin (0.2-1.3) mg/dL AST (17-59) U/L ALT (21-72) U/L Assessment and Plan Plan: 1. Acute toxic metabolic encephalopathy due to complicated alcohol withdrawal Improved Continue supportive measures 2. A fib with RVR, elevated troponin due to demand ischemia from A fib with RVR -On oral amiodarone, metoprolol, digoxin -Heparin drip - cardio recs: Cardioversion 05/07 if he does not respond to amiodarone - optimize electrolytes 3. Rash, likely allergic versus contact dermatitis Improving Currently he is on antihistaminics and steroids We will reevaluate this daily 4. Congestive systolic heart failure with EF of 20% likely due to alcoholic cardiomyopathy -Continue with metoprolol and lisinopril, consider aldactone if BP tolerated -Cardiology recommendations 5. Thrombocytopenia and transaminitis. This improved and platelets are normal today AL TNA stay close to normal - alcohol cessation 6. Possible seizure episode - seizure precautions - EEG no sieuzre activity 7. Acute respiratory failure, resolved
[2018-05-05 16:52] LABS: Glucose,Whole Blood 109 mg/dL (75-99)
[2018-05-05] MEDS: diphenhydrAMINE 25 MG CAP PO PRN ×2 (18:53→22:25)
[2018-05-06 04:53] LABS: HCT 43.5 % (39.0-53.0); HGB 14.8 gm/dL (13.0-17.5); MCH 34.8 pg (25.0-35.0); MCHC 34.1 g/dL (31.0-37.0); MCV 102.2 fL (80.0-100.0); Macrocytosis Slight; Mean Platelet Volume 8.5; Platelet Count 195 k/uL (150-450); RBC 4.26 m/uL (4.30-5.90); RDW 14.4 % (11.5-15.5); WBC 6.4 k/uL (3.8-10.6)
[2018-05-06 05:05] LABS: Anion Gap 9 mmol/L; Blood Urea Nitrogen 18 mg/dL (9-20); Carbon Dioxide 24 mmol/L (22-30); Chloride 106 mmol/L (98-107); Glucose 86 mg/dL (74-99); Potassium 4.1 mmol/L (3.5-5.1); Sodium 139 mmol/L (137-145)
--- NOTE | 2018-05-06 07:14 | XR ---
EXAMINATION TYPE: XR chest 1V portable DATE OF EXAM: 05/06/2018 HISTORY: SOB. REFERENCE: Previous study dated 05/05/2018. FINDINGS: The heart is enlarged. The lungs are clear. Pleural spaces are clear. IMPRESSION: CARDIOMEGALY.
[2018-05-06] MEDS: diphenhydrAMINE 25 MG CAP PO PRN ×3 (07:32→20:48)
[2018-05-06] MEDS: LISINOPRIL 2.5 MG TAB PO SCH (09:44)
[2018-05-06] MEDS: ASPIRIN 325 MG TAB PO SCH (09:44)
[2018-05-06] MEDS: AMIODARONE 200 MG TAB PO SCH ×2 (09:44→20:48)
[2018-05-06] MEDS: APIXABAN 5 MG TAB PO SCH ×2 (09:45→20:48)
[2018-05-06] MEDS: predniSONE 20 MG TAB PO SCH (09:45)
[2018-05-06] MEDS: DIGOXIN 250 MCG/ML 2 ML AMP IVP SCH (09:45)
[2018-05-06] MEDS: PANTOPRAZOLE 40 MG TABLET PO SCH (09:45)
[2018-05-06] MEDS: METOPROLOL SUCCINATE (ER) 50 MG TAB.ER.24H PO SCH (09:57)
[2018-05-06] MEDS: THIAMINE 100 MG TAB PO SCH (11:38)
[2018-05-06] MEDS: FOLIC ACID 1 MG TAB PO SCH (11:38)
[2018-05-06] MEDS: MULTIVITAMINS, THERA 1 EACH TAB PO SCH (11:38)
[2018-05-06] MEDS ORDERED: METOPROLOL SUCCINATE (ER) 25 MG TAB.ER.24H PO STA (11:40)
--- NOTE | 2018-05-06 12:46 | PN ---
PROGRESS NOTE Jf is a 38-year-old gentleman who was admitted to hospital with alcohol, delirium tremens, respiratory failure and had to be intubated. He has dilated cardiomyopathy with severe LV dysfunction and had been in atrial fibrillation with poorly controlled ventricular rate. This morning, he is feeling much better. He is still on amiodarone 400 b.i.d., Eliquis 5 b.i.d., aspirin, Lanoxin 250 mcg, Toprol-XL 50 mg daily. The plan at this stage is to continue to optimize his medical therapy to control his heart rate and consider ANNETTE cardioversion maybe [address] On exam, heart varies from 91 beats to 120 beats per minute. Blood pressure is 120/72, respiratory rate 18. Chest exam reveals good air entry bilaterally. Heart exam reveals first and second heart sounds, irregular rhythm. Exam of extremities did not reveal any edema. Labs show a hemoglobin of 14.8, platelet count of 195, creatinine is 0.6, potassium is 4.1, AST/ALT are elevated probably related to the underlying disease, but they are much improved compared to where we were initially started with 598 down to 82. ASSESSMENT: Persistent atrial fibrillation with poorly controlled ventricular rate. PLAN: We will continue current medications and will re-evaluate him tomorrow. MMODL / IJN: [id number] /
[2018-05-06] MEDS ORDERED: HYDROCORTISONE 1% OINT 28.35 GM TUBE TOPICAL PRN (14:42)
--- NOTE | 2018-05-06 14:48 | P.PN ---
Subjective 38-year-old male admitted with alcohol withdrawal, delirium and A. fib with RVR, . He has been briefly intubated. His encephalopathy has resolved. He continues to be in rapid ventricular response. EF is 20%. Cardiology started anticoagulation with Eliquis. They also initiated digoxin, Toprol and amiodarone in an attempt to control heart rate or induce cardioversion. Patient's heart rate somewhat better but still tachycardic in 120s. He has been otherwise asymptomatic. He does have morbilliform rash in the upper thighs and elbows which he suspected is a reaction to the bed sheets. There are no new areas. There is no joint swelling. There is no systemic symptoms or malaise or fever. This has been improving. REVIEW OF SYSTEMS: CONSTITUTIONAL: No fever or chills HEENT: No changes in vision or voice CARDIOVASCULAR: no chest pain or abnormal heart beats, or any swelling in ankles or feet. RESPIRATORY: No wheezing or coughing. GASTROINTESTINAL: No abdominal pain, no nausea no vomiting no constipation or diarrhea GENITOURINARY: no any urinary urgency, frequency or burning, and there has been no blood in her urine. no flank pain. MUSCULOSKELETAL: She notes full range of motion of all her joints without pain or swelling. NEUROLOGICAL: , no headache. no vision changes, or fainting. No numbness or tingling. Objective - Vital Signs Vital signs: Vital Signs Temp 97.9 F 05/06/18 11:35 Pulse 126 H 05/06/18 12:00 Resp 20 05/06/18 11:35 BP 121/89 05/06/18 11:35 Pulse Ox 97 05/06/18 11:35 Intake & Output 05/05/18 05/06/18 05/06/18 18:59 06:59 18:59 Intake Total 1390 250 Output Total 550 Balance 840 250 Weight 135 kg 135 kg Intake: IV 300 Sodium Chloride 0.9% 1, 300 000 ml @ 50 mls/hr IV . Q20H [facility] Rx#:[id number] Oral 1090 250 Output: Urine 550 Other: Voiding Method Indwelling Catheter Indwelling Catheter # Voids 2 1 1 ABP, PAP, CO, CI - Last Documented Arterial Blood Pressure 109/85 - Exam Vital Signs: I have reviewed the vital signs. GENERAL: Well-nourished, Well-developed , no apparent distress, cooperative Eyes: PERRL, extraoculry movements intact, clear conjunctiva Head: : Atraumatic external nose and ears, oropharyngeal mucosa is moist without lesions or exudates Neck: Symmetric, trachea midline, No thyromegaly, no masses or neck vain pulsation, no neck rigidity CVS: +S1/S2, No murmurs or gallops. Peripheral pulses 2+ and equal in all extremities. RESP: Unlabored respiratory effort. Clear to auscultation bilaterally. Abdomen: Bowel sounds present in all 4 quadrants, Soft to palpation, Nontender/ Nondistended, No hepatosplenomegaly, no hernias or masses, no CVA tnderness Musculoskeletal: Extremities w/o deformity, No cyanosis or clubbing, no joint swelling Skin: Warm, Dry. There is erythematosus rash in his upper thighs area without any blistering papules or disclamation. Patient reports significant improvement comparing to initial presentation Neuro: line rider II-XII grossly intact, motor strenght 5/5 i upper and lower extremities, no clonus, patellar DTRs 2+ and sympetrical Psych: Awake, Alert, & Oriented (AAO) x3 Appropriate mood and affect - Labs CBC & Chem 7: 05/06/18 04:24 05/06/18 04:24 Labs: Abnormal Lab Results - Last 24 Hours (Table) 05/05/18 05/06/18 05/06/18 Range/Units 16:49 04:24 04:24 RBC 4.26 L (4.30-5.90) m/uL MCV 102.2 H (80.0-100.0) fL Creatinine 0.63 L (0.66-1.25) mg/dL POC Glucose (mg/dL) 109 H (75-99) mg/dL Assessment and Plan Plan: 1. Acute toxic metabolic encephalopathy due to complicated alcohol withdrawal Resolved 2. A fib with RVR, elevated troponin due to demand ischemia from A fib with RVR -On oral amiodarone, metoprolol, digoxin -Started now on Eliquis after heparin drip - cardio recs: Electrical Cardioversion 05/07 if he does not respond to amiodarone Monitor electrolytes Monitor liver enzymes We will obtain baseline TSH 3. Rash, likely allergic Improving Currently he is on antihistaminics We'll discontinue prednisone and order local hydrocortisone due to the limited area involved Or no any systemic signs fever malaise. No eosinophilia. 4. Congestive systolic heart failure with EF of 20% likely due to alcoholic cardiomyopathy -Continue with metoprolol and lisinopril, consider aldactone if BP tolerated -Cardiology recommendations 5. Thrombocytopenia and transaminitis. This improved and platelets are normal today Monitor periodically liver enzymes given the history of alcoholism and now being on amiodarone 6. Possible seizure episode No seizures here 7. Acute respiratory failure, resolved Disposition plan: Home Expected date of discharge: 05/08/2018
[2018-05-06] MEDS: METOPROLOL TARTRATE 5 MG/5 ML VIAL IVP SCH ×3 (16:24→16:27)
[2018-05-06] MEDS: LORazepam 0.5 MG TAB PO PRN (20:48)
[2018-05-07 06:10] LABS: HCT 41.7 % (39.0-53.0); HGB 13.8 gm/dL (13.0-17.5); MCH 33.8 pg (25.0-35.0); MCHC 33.1 g/dL (31.0-37.0); MCV 102.3 fL (80.0-100.0); Macrocytosis Slight; Platelet Count 296 k/uL (150-450); RBC 4.07 m/uL (4.30-5.90); RDW 14.3 % (11.5-15.5); WBC 7.3 k/uL (3.8-10.6)
[2018-05-07 06:30] LABS: ALT 76 U/L (21-72); AST 61 U/L (17-59); Albumin 3.2 g/dL (3.5-5.0); Alkaline Phosphatase 61 U/L (38-126); Anion Gap 7 mmol/L; Blood Urea Nitrogen 20 mg/dL (9-20); Calcium 8.7 mg/dL (8.4-10.2); Carbon Dioxide 28 mmol/L (22-30); Chloride 106 mmol/L (98-107); Glucose 88 mg/dL (74-99); Potassium 4.2 mmol/L (3.5-5.1); Sodium 141 mmol/L (137-145); Total Protein 6.6 g/dL (6.3-8.2)
[2018-05-07] MEDS: PANTOPRAZOLE 40 MG TABLET PO SCH (10:21)
[2018-05-07] MEDS: AMIODARONE 200 MG TAB PO SCH ×2 (10:21→20:12)
[2018-05-07] MEDS: LISINOPRIL 2.5 MG TAB PO SCH (10:21)
[2018-05-07] MEDS: APIXABAN 5 MG TAB PO SCH (10:21)
[2018-05-07] MEDS: DIGOXIN 250 MCG/ML 2 ML AMP IVP SCH (10:21)
[2018-05-07] MEDS: diphenhydrAMINE 25 MG CAP PO PRN ×2 (10:27→21:35)
[2018-05-07] MEDS: METOPROLOL SUCCINATE (ER) 50 MG TAB.ER.24H PO SCH (11:47)
[2018-05-07] MEDS: SODIUM CHLORIDE 0.9% 1,000 ML IV SCH (11:48)
[2018-05-07] MEDS ORDERED: LACTATED RINGERS 1,000 ML IV ONE ×2 (12:03)
[2018-05-07] MEDS ORDERED: KETAMINE 10 MG/ML 20 ML VIAL ONE (12:42)
[2018-05-07] MEDS ORDERED: PROPOFOL 10 MG/ML 20 ML VIAL IV ONE (12:42)
[2018-05-07] MEDS ORDERED: LIDOCAINE 1% INJ 10MG/ML (20 ML MDV) ONE (12:42)
[2018-05-07] MEDS ORDERED: MIDAZOLAM 2 MG/2 ML VIAL ONE (12:42)
--- NOTE | 2018-05-07 13:22 | ECHOT ---
TRANSESOPHAGEAL ECHOCARDIOGRAM This patient was admitted with atrial fibrillation with a rapid ventricular response. Patient has evidence of cardiomyopathy. Transesophageal echocardiogram was performed to rule out any cardiac thrombi prior to cardioversion. The patient was given intravenous sedation with propofol, Versed by nurse laser print operator and transesophageal echocardiogram was performed without any complications. Left ventricular chamber is dilated with a severe degree of global hypokinesia with ejection fraction of 20% to 25%. Left atrium is mildly enlarged. Mitral, aortic and tricuspid valve morphology is normal. There is no definite evidence of any thrombus in left atrium or atrial appendage. The left ventricular apex was clear. Color Doppler study shows evidence of mild degree of mitral regurgitation. Aortic wall is normal. Mild tricuspid regurgitation was noted. Interatrial septum is intact and there is no evidence of any PFO. FINAL IMPRESSION: 1. There is no evidence of thrombus in left atrium or atrial appendage. 2. The left ventricular systolic function is severely impaired with ejection fraction of 20%. 3. Aortic, mitral and tricuspid valve morphology is normal. 4. Interatrial septum is intact. 5. There is no evidence of any PFO. RECOMMENDATIONS: Proceed with cardioversion. MMODL / IJN: [id number] /
--- NOTE | 2018-05-07 13:25 | CE ---
CARDIAC ELECTROPHYSIOLOGY REPORT PROCEDURE: Cardioversion. PREOPERATIVE DIAGNOSIS: Atrial fibrillation. POSTOPERATIVE DIAGNOSIS: Atrial fibrillation. The patient was given intravenous sedation with propofol and Versed and subsequently cardioversion was performed in synchronous mode with 360 joules. The patient converted to the normal sinus rhythm. Tolerated the procedure well. The patient has received Eliquis this morning. We will resume the patient's cardiac medications. LOAN / GREGN: [id number] /
[2018-05-07] MEDS: FOLIC ACID 1 MG TAB PO SCH (15:00)
[2018-05-07] MEDS: THIAMINE 100 MG TAB PO SCH (15:00)
[2018-05-07] MEDS: MULTIVITAMINS, THERA 1 EACH TAB PO SCH (15:00)
[2018-05-07 15:01] VITALS: BMI 35.7
--- NOTE | 2018-05-07 18:50 | P.PN ---
Subjective Progress Note Date: 05/07/18 Principal diagnosis: atrial fibrillation with RVR Patient seen and examined. No acute events overnight. Seen after ANNETTE and cardioversion. He has no complaints at this time. No chest pain, shortness of breath or palpitations. Objective - Vital Signs Vital signs: Vital Signs Temp 98.2 F 05/07/18 08:00 Pulse 104 H 05/07/18 08:00 Resp 18 05/07/18 08:00 BP 122/88 05/07/18 08:00 Pulse Ox 97 05/07/18 08:00 Intake & Output 05/06/18 05/07/18 05/07/18 18:59 06:59 18:59 Intake Total 730 Balance 730 Weight 131.7 kg 126.2 kg Intake: Oral 730 Other: Voiding Method Indwelling Catheter Toilet # Voids 2 1 ABP, PAP, CO, CI - Last Documented Arterial Blood Pressure 109/85 - Exam General: [non toxic], [no distress], [appears at stated age] Derm: [warm], [dry] Head: [atraumatic], [normocephalic], [symmetric] Eyes: [EOMI], [no lid lag], [anicteric sclera] Mouth: [no lip lesion], [mucus membranes moist] Cardiovascular: [S1S2 reg], [no murmur], [positive DP pulse bilateral] Lungs: [CTA bilateral], [no rhonchi, no rales] , [no accessory muscle use] Abdominal: [soft], [ nontender to palpation], [no guarding], [no appreciable organomegaly] Ext: [no gross muscle atrophy], [no edema], [no contractures], [morbilliform rash improving bilateral groin] Neuro: [no focal neuro deficits] Psych: [Alert], [oriented], [appropriate affect] - Labs CBC & Chem 7: 05/07/18 05:37 05/07/18 05:37 Labs: Abnormal Lab Results - Last 24 Hours (Table) 05/07/18 05/07/18 Range/Units 05:37 05:37 RBC 4.07 L (4.30-5.90) m/uL MCV 102.3 H (80.0-100.0) fL AST 61 H (17-59) U/L ALT 76 H (21-72) U/L Albumin 3.2 L (3.5-5.0) g/dL TSH 7.680 H (0.465-4.680) mIU/L Assessment and Plan Assessment: Assessment and Plan 1. A-Fibrillation with RVR: HR in the 130s. Continue Metoprolol 75 mg PO QD. Continue Amiodarone 400 mg PO BID, Metoprolol and Digoxin 250 mcg IV QD. Heparin drip discontinued for Eliquis PO. TSH is low but FT4 is within normal limits. Telemetry monitoring. Keep K > 4 and Mg > 2. FU Cardiology 2. Rash: No systemic signs. Patient is afebrile with no leukocytosis. Continue Hydrocortisone cream 1%, Benadryl 25 mg PO QID PRN for itching. 3. HFrEF: Echocardiogram shows EF < 20%. This is likely due to EtOH abuse. Ins and Outs. Telemetry monitoring. Keep K > 4 and Mg > 2. Continue Metoprolol 75 mg PO QD, Lisinopril 5 mg PO QD. FU Cardiology 4. EtOH abuse: Patient under general sedation. CIWA protocol with Ativan PO PRN for CIWA > 8. Continue Thiamine 100 mg IV BID, Folic acid 1 mg PO QD. Zofran 4 mg IV Q6 PRN for N/V. 5. Macrocytosis: MCV 102.3. Likely from EtOH. B12 and folate are within normal limits. 6. Transaminitis: AST 184 to 61, ALT 215 to 76, T. Bili 2.5 to 1.0. Likely from EtOH. 8. DVT/GI Prophylaxis: Protonix 40 mg PO QD. Heparin 5000 units SUBCUT TID. Resolved: Acute toxic metabolic encephalopathy due to EtOH withdrawal, Acute hypoxic respiratory failure due to delerium tremens + pulmonary edema d/t A-Fib with RVR, Thrombocytopenia Plans for ANNETTE and cardioversion, discussed with COMMUNITY NUTRITION EDUCATOR Vaughn.
[2018-05-08] MEDS: PANTOPRAZOLE 40 MG TABLET PO SCH (06:34)
[2018-05-08] MEDS: DIGOXIN 250 MCG/ML 2 ML AMP IVP SCH (09:46)
[2018-05-08] MEDS: AMIODARONE 200 MG TAB PO SCH ×2 (09:48→20:16)
[2018-05-08] MEDS: METOPROLOL SUCCINATE (ER) 50 MG TAB.ER.24H PO SCH (09:49)
[2018-05-08] MEDS: LISINOPRIL 2.5 MG TAB PO SCH (09:49)
[2018-05-08] MEDS: diphenhydrAMINE 25 MG CAP PO PRN ×3 (09:52→17:55)
--- NOTE | 2018-05-08 12:13 | P.PN ---
Subjective Progress Note Date: 05/08/18 Principal diagnosis: Atrial fibrillation, N/V Patient seen and examined. No acute events overnight. Patient reports 2 episodes of nausea and vomiting, associates it with anesthesia from yesterday's cardioversion. He is maintained sinus rhythm. Patient denies any chest pain, shortness of breath or palpitations. He is looking for outpatient alcohol rehab programs. Objective - Vital Signs Vital signs: Vital Signs Temp 97.3 F L 05/08/18 08:25 Pulse 70 05/08/18 08:25 Resp 16 05/08/18 08:25 BP 129/85 05/08/18 08:25 Pulse Ox 97 05/08/18 08:25 Intake & Output 05/07/18 05/08/18 05/08/18 18:59 06:59 18:59 Intake Total 422 360 Balance 422 360 Weight 126.2 kg 129.2 kg Intake: IV 200 Oral 222 360 Other: Voiding Method Toilet # Voids 1 ABP, PAP, CO, CI - Last Documented Arterial Blood Pressure 109/85 - Exam General: [non toxic], [no distress], [appears at stated age] Derm: [warm], [dry] Head: [atraumatic], [normocephalic], [symmetric] Eyes: [EOMI], [no lid lag], [anicteric sclera] Mouth: [no lip lesion], [mucus membranes moist] Cardiovascular: [S1S2 reg], [no murmur], [positive DP pulse bilateral] Lungs: [CTA bilateral], [no rhonchi, no rales] , [no accessory muscle use] Abdominal: [soft], [ nontender to palpation], [no guarding], [no appreciable organomegaly] Ext: [no gross muscle atrophy], [no edema], [no contractures], [morbilliform rash improving bilateral groin] Neuro: [no focal neuro deficits] Psych: [Alert], [oriented], [appropriate affect] - Labs CBC & Chem 7: 05/07/18 05:37 05/07/18 05:37 Assessment and Plan Assessment: Assessment and Plan 1. A-Fibrillation with RVR: HR in the 70s post cardioversion. Continue Metoprolol 75 mg PO QD. Continue Amiodarone 400 mg PO BID, Metoprolol. DC Digoxin. Heparin drip discontinued for Eliquis PO. TSH is low but FT4 is within normal limits. Telemetry monitoring. Keep K > 4 and Mg > 2. FU Cardiology 2. Rash: No systemic signs. Patient is afebrile with no leukocytosis. Continue Hydrocortisone cream 1%, Benadryl 25 mg PO QID PRN for itching. 3. HFrEF: Echocardiogram shows EF < 20%. This is likely due to EtOH abuse. Ins and Outs. Telemetry monitoring. Keep K > 4 and Mg > 2. Continue Metoprolol 75 mg PO QD, Lisinopril 5 mg PO QD. FU Cardiology 4. EtOH abuse: Patient under general sedation. CIWA protocol with Ativan PO PRN for CIWA > 8. Continue Thiamine 100 mg IV BID, Folic acid 1 mg PO QD. Zofran 4 mg IV Q6 PRN for N/V. 5. Macrocytosis: MCV 102.3. Likely from EtOH. B12 and folate are within normal limits. 6. Transaminitis: AST 184 to 61, ALT 215 to 76, T. Bili 2.5 to 1.0. Likely from EtOH. 8. DVT/GI Prophylaxis: Protonix 40 mg PO QD. Heparin 5000 units SUBCUT TID. Resolved: Acute toxic metabolic encephalopathy due to EtOH withdrawal, Acute hypoxic respiratory failure due to delerium tremens + pulmonary edema d/t A-Fib with RVR, Thrombocytopenia Patient in sinus rhythm. Nausea and vomiting overnight presumed to be from anesthesia. Will monitor 1 more day in telemetry. Likely DC tomorrow.
[2018-05-08] MEDS: MULTIVITAMINS, THERA 1 EACH TAB PO SCH (12:40)
[2018-05-08] MEDS: THIAMINE 100 MG TAB PO SCH (12:40)
[2018-05-08] MEDS: FOLIC ACID 1 MG TAB PO SCH (12:40)
[2018-05-08] MEDS: SODIUM CHLORIDE 0.9% 1,000 ML IV SCH (12:42)
--- NOTE | 2018-05-08 14:12 | P.PN ---
Subjective Progress Note Date: 05/08/18 This pleasant 38-year-old gentleman with history of EtOH abuse in the past, alcoholic cardiomyopathy, who was noted to the hospital with DTs, developed respiratory failure and had to be intubated. He was found to be in atrial fibrillation with poorly controlled ventricular response. Medication adjustments have been made. Yesterday his heart rate was in the 100s to 120 range. He underwent transesophageal echocardiographic study with subsequent cardioversion. This morning he remains in normal sinus rhythm. He's been up ambulating in the hallway most of the day. Denies any palpitations, no dizziness or lightheadedness. Blood pressure 128/80 with a heart rate in the 70s. Objective - Vital Signs Vital signs: Vital Signs Temp 97.3 F L 05/08/18 08:25 Pulse 70 05/08/18 08:25 Resp 16 05/08/18 08:25 BP 129/85 05/08/18 08:25 Pulse Ox 97 05/08/18 08:25 Intake & Output 05/07/18 05/08/18 05/08/18 18:59 06:59 18:59 Intake Total 422 600 Output Total 1000 Balance 422 -400 Weight 126.2 kg 129.2 kg Intake: IV 200 Oral 222 600 Output: Urine 1000 Other: Voiding Method Toilet # Voids 1 ABP, PAP, CO, CI - Last Documented Arterial Blood Pressure 109/85 - Exam PHYSICAL EXAMINATION: GENERAL: Pleasant 38-year-old gentleman in no acute distress at the time of my examination HEENT: Head is atraumatic, normocephalic. Pupils equal, round. Sclera anicteric. Conjunctiva are clear. Mucous membranes of the mouth are moist. Neck is supple. There is no elevated jugular venous pressure. No carotid bruit is heard. HEART EXAMINATION: Heart S1, S2 normal. No murmur or gallop heard. CHEST EXAMINATION: Lungs are clear to auscultation and precussion. No chest wall tenderness is noted on palpation or with deep breathing. ABDOMEN: Soft, nontender. Bowel sounds are heard. No organomegaly noted. EXTREMITIES: 2+ peripheral pulses with no evidence of peripheral edema and no calf tenderness noted. NEUROLOGIC patient is awake, alert and oriented 3 . . - Labs CBC & Chem 7: 05/07/18 05:37 01/14/19 05:37 Assessment and Plan Plan: Assessment and plan #1 atrial fibrillation with rapid ventricular response, paroxysmal, status post elective cardioversion, remaining in normal sinus rhythm #2 EtOH abuse #3 cardiomyopathy likely secondary to EtOH #4 elevated AST and ALT, likely secondary to EtOH Plan We will continue the patient on his current medications, including the amiodarone 400 mg one tablet by mouth twice a day which we will continue for 2 weeks, then we will taper that dose down. Recommendations and adjustments on these medications will be made at that point of discharge. Patient will likely be discharged home in the morning. DNP note has been reviewed, I agree with a documented findings and plan of care. Patient was seen and examined.
[2018-05-09] MEDS: PANTOPRAZOLE 40 MG TABLET PO SCH (06:29)
[2018-05-09 08:11] VITALS: BP 124/79; PULSE 65; RESP 17; TEMP 97.7
[2018-05-09] MEDS: METOPROLOL SUCCINATE (ER) 50 MG TAB.ER.24H PO SCH (08:14)
[2018-05-09] MEDS: AMIODARONE 200 MG TAB PO SCH (08:14)
[2018-05-09] MEDS: SODIUM CHLORIDE 0.9% 1,000 ML IV SCH (08:14)
[2018-05-09] MEDS: LISINOPRIL 2.5 MG TAB PO SCH (08:14)
--- NOTE | 2018-05-09 10:15 | P.PN ---
Subjective Progress Note Date: 05/09/18 Principal diagnosis: Atrial fibrillation Patient was seen and examined. No acute events overnight. He has no complaints this morning. Maintaining sinus since cardioversion. Objective - Vital Signs Vital signs: Vital Signs Temp 97.7 F 05/09/18 08:00 Pulse 65 05/09/18 08:00 Resp 17 05/09/18 08:00 BP 124/79 05/09/18 08:00 Pulse Ox 99 05/09/18 08:00 Intake & Output 05/08/18 05/09/18 05/09/18 18:59 06:59 18:59 Intake Total 840 240 Output Total 1000 Balance -160 240 Weight 124.8 kg Intake: Oral 840 240 Output: Urine 1000 Other: Voiding Method Toilet Toilet # Voids 1 ABP, PAP, CO, CI - Last Documented Arterial Blood Pressure 109/85 - Exam General: [non toxic], [no distress], [appears at stated age] Derm: [warm], [dry] Head: [atraumatic], [normocephalic], [symmetric] Eyes: [EOMI], [no lid lag], [anicteric sclera] Mouth: [no lip lesion], [mucus membranes moist] Cardiovascular: [S1S2 reg], [no murmur], [positive DP pulse bilateral] Lungs: [CTA bilateral], [no rhonchi, no rales] , [no accessory muscle use] Abdominal: [soft], [ nontender to palpation], [no guarding], [no appreciable organomegaly] Ext: [no gross muscle atrophy], [no edema], [no contractures], [morbilliform rash improving bilateral groin] Neuro: [no focal neuro deficits] Psych: [Alert], [oriented], [appropriate affect] - Labs CBC & Chem 7: 05/07/18 05:37 05/07/18 05:37 Assessment and Plan Assessment: Assessment and Plan 1. A-Fibrillation with RVR: HR in the 70s post cardioversion. Continue Metoprolol 75 mg PO QD. Continue Amiodarone 400 mg PO BID, Metoprolol. DC Digoxin. Heparin drip discontinued for Eliquis PO. TSH is low but FT4 is within normal limits. Telemetry monitoring. Keep K > 4 and Mg > 2. FU Cardiology 2. Rash: No systemic signs. Patient is afebrile with no leukocytosis. Continue Hydrocortisone cream 1%, Benadryl 25 mg PO QID PRN for itching. 3. HFrEF: Echocardiogram shows EF < 20%. This is likely due to EtOH abuse. Ins and Outs. Telemetry monitoring. Keep K > 4 and Mg > 2. Continue Metoprolol 75 mg PO QD, Lisinopril 2.5 mg PO QD. FU Cardiology 4. EtOH abuse: Patient under general sedation. CIWA protocol with Ativan PO PRN for CIWA > 8. Continue Thiamine 100 mg IV BID, Folic acid 1 mg PO QD. Zofran 4 mg IV Q6 PRN for N/V. 5. Macrocytosis: MCV 102.3. Likely from EtOH. B12 and folate are within normal limits. 6. Transaminitis: AST 184 to 61, ALT 215 to 76, T. Bili 2.5 to 1.0. Likely from EtOH. 8. DVT/GI Prophylaxis: Protonix 40 mg PO QD. Heparin 5000 units SUBCUT TID. Resolved: Acute toxic metabolic encephalopathy due to EtOH withdrawal, Acute hypoxic respiratory failure due to delerium tremens + pulmonary edema d/t A-Fib with RVR, Thrombocytopenia Patient in sinus rhythm. DC today. Given 2 weeks of Antabuse as per patient request, needs adequate PCP follow up. Going straight to EtOH rehab.
[2018-05-09] MEDS ORDERED: APIXABAN 5 MG TAB PO SCH (10:30)
--- NOTE | 2018-05-09 10:52 | P.PN ---
Subjective Progress Note Date: 05/09/18 This pleasant 38-year-old gentleman with history of EtOH abuse in the past, alcoholic cardiomyopathy, who was noted to the hospital with DTs, developed respiratory failure and had to be intubated. He was found to be in atrial fibrillation with poorly controlled ventricular response. Medication adjustments have been made. Yesterday his heart rate was in the 100s to 120 range. He underwent transesophageal echocardiographic study with subsequent cardioversion. This morning he remains in normal sinus rhythm. He's been up ambulating in the hallway most of the day. Denies any palpitations, no dizziness or lightheadedness. Blood pressure 128/80 with a heart rate in the 70s. 05/09/2018 Patient seen and examined this morning, he's been up ambulating in the cook, denies any palpitations, no dizziness or lightheadedness, no shortness of breath. Continues to be in a normal sinus rhythm. Blood pressure 124/70, heart rate in the 60s, 99% on room air. No labs today. Objective - Vital Signs Vital signs: Vital Signs Temp 97.7 F 05/09/18 08:00 Pulse 65 05/09/18 08:00 Resp 17 05/09/18 08:00 BP 124/79 05/09/18 08:00 Pulse Ox 99 05/09/18 08:00 Intake & Output 05/08/18 05/09/18 05/09/18 18:59 06:59 18:59 Intake Total 840 240 Output Total 1000 Balance -160 240 Weight 124.8 kg Intake: Oral 840 240 Output: Urine 1000 Other: Voiding Method Toilet Toilet # Voids 1 ABP, PAP, CO, CI - Last Documented Arterial Blood Pressure 109/85 - Exam PHYSICAL EXAMINATION: GENERAL: Eugenio 38-year-old gentleman in no acute distress at the time of my examination HEENT: Head is atraumatic, normocephalic. Pupils equal, round. Sclera anicteric. Conjunctiva are clear. Mucous membranes of the mouth are moist. Neck is supple. There is no elevated jugular venous pressure. No carotid bruit is heard. HEART EXAMINATION: Heart S1, S2 normal. No murmur or gallop heard. CHEST EXAMINATION: Lungs are clear to auscultation and precussion. No chest wall tenderness is noted on palpation or with deep breathing. ABDOMEN: Soft, nontender. Bowel sounds are heard. No organomegaly noted. EXTREMITIES: 2+ peripheral pulses with no evidence of peripheral edema and no calf tenderness noted. NEUROLOGIC patient is awake, alert and oriented 3 . . - Labs CBC & Chem 7: 05/07/18 05:37 05/07/18 05:37 Assessment and Plan Plan: Assessment and plan #1 atrial fibrillation with rapid ventricular response, paroxysmal, status post elective cardioversion, remaining in normal sinus rhythm #2 EtOH abuse #3 cardiomyopathy likely secondary to EtOH #4 elevated AST and ALT, likely secondary to EtOH Plan We will continue the patient on his current medications, including the amiodarone 400 mg one tablet by mouth twice a day which we will continue for 3 weeks, then the patient will be put on 200 mg one tablet by mouth 3 times a day ,continue Eliquis 5 mg one tablet by mouth twice a day. Continue Zestril 2-1/2 mg daily, metoprolol 75 mg daily. From here the patient will be going to an inpatient rehab, for his EtOH abuse. DNP note has been reviewed, I agree with a documented findings and plan of care. Patient was seen and examined.
--- NOTE | 2018-05-10 08:24 | CDI ---
Documentation Clarification Form Date: 05/10/18 From: Ana Joshua Margaret Leonardo, Cable [employer]acer Hours-8:30 am & 5 pm M-Renan Admit Date: 04/29/2018 12:17:00 AM Patient Name: Jf Bautista Visit Number: [id number] Discharge Date: 05/09/2018 11:05:00 AM ATTENTION: The Clinical Documentation Specialists (CDI) and [facility] Coding Staff appreciate your assistance in clarifying documentation. Please respond to the clarification below the line at the bottom and electronically sign. The CDI & [facility] Coding staff will review the response and follow-up if needed. Please note: Queries are made part of the Legal Health Record. If you have any questions, please contact the author of this message via ITS. Dr. Wilmer Correa, CHF is documented in your consult, multiple progress notes. Systolic CHF is documented in Echo, PNs 05/03, 05/04 & 05/06. History/Risk Factors: alcoholic cardiomyopathy, persistent atrial fibrillation, acute respiratory failure w hypoxia VS/Pulse OX: BNP: 765 Echocardiogram Results: Left ventricular systolic function is severly impaired, EF <20%. 04/29 Chest X Ray: CHF w pulmonary edema and basilar pulmonary infiltrates unchanged compared to exam 12 hours ago. Treatment: Lanoxin IVP 250 mcg Q6HR, Lasix 40 mg IV Q12H In your professional opinion, can you please clarify the acuity and the POA? Systolic Heart Failure Acute Chronic Acute on Chronic Unable to Determine Other, please specify Present on Admission: YES OR NO MTDD
--- NOTE | 2018-05-21 08:04 | P.DS ---
Providers Date of admission: 04/29/18 00:17 Expected date of discharge: 05/09/18 Attending physician: Moses Foster MD Consults: 04/29/18 00:17 Consult Physician Urgent Consulting Provider: Stanislav Zheng Consult Reason/Comments: Atrial fibrillation with RVR Do you want consulting provider notified?: Already Contacted 04/29/18 13:08 Consult Physician Urgent Consulting Provider: Marcus Blackwell Consult Reason/Comments: a-fib Do you want consulting provider notified?: Already Contacted 04/29/18 13:36 Consult Physician Urgent Consulting Provider: Marcus Blackwell Consult Reason/Comments: icu Do you want consulting provider notified?: Yes Primary care physician: Stated None - Discharge Diagnosis(es) (1) Acute respiratory failure with hypoxia Status: Acute (2) Alcohol withdrawal Status: Acute (3) HFrEF (heart failure with reduced ejection fraction) Status: Acute (4) Rash and nonspecific skin eruption Status: Acute (5) Macrocytosis without anemia Status: Acute (6) Toxic metabolic encephalopathy Status: Acute (7) Transaminitis Status: Acute (8) Atrial fibrillation Status: Acute (9) Thrombocytopenia Status: Acute Hospital Course: 38 yo M with a PMH of EtOH abuse (hospitalized w/ DTs in 12/2017 at a hospital in [place] w/ withdrawal seizures) presented to the ED due to chest pain, SOB, palpitations, and tremors. The patient notes that he had been drinking 1 pint and a fifth of Vodka daily for the past month after his friend committed suicide. He notes that after his previous hospitalization in 12/2017, he was sober for 2 months before his friends . His last drink was 14 hours prior to presentation and he then became tremulous and began hallucinating with subsequent chest pain, substernal, 7/10, with radiation to L arm, worsened with exertion, with associated SOB and palpitations. The patient notes that he had similar symptoms during his previous DTs episode and was noted to be in A-fib though was never stared on anticoagulation since it was deemed to be a single episode secondary to DTs. The patient endorsed a cough for the past 1 week with some greenish phelgm but otherwise an unlimited ET and denied orthopnea, PND, fever, chills, nausea, vomiting, diarrhea, recent travel, or sick contacts. In the ED, the patient had a comprehensive workup. EKG showed A-fib with RVR @ 183 bpm; Troponin 0.040; Lipase 345; T Bili 2.0; AST 590; ALT 358; and platelets 53. Patient was transferred on the day of admission for severe alcohol withdrawal requiring Ativan every hour. Patient was also found to be in respiratory distress and was intubated to protect his airway. This is thought to be secondary to delirium tremens, pulmonary edema due to atrial fibrillation with RVR. There was some concerns for pneumonia seen on chest x-ray. He was started on piperacillin and tazobactam IV. He was started on Ativan drip. He was given Lasix 40 mg IV twice a day. He was placed on aspiration precautions. Patient was successfully extubated on May 03. With regard to his atrial fibrillation with RVR, cardiology was consulted. Patient was initially started on an esmolol and amiodarone drip. Levophed was added to maintain his blood pressure. He was then started on metoprolol 25 mg by mouth twice a day and digoxin 250 g IV daily. Digoxin and metoprolol were titrated but unable to maintain a normal heart rate. Echocardiogram was done which showed an ejection fraction less than 20%. Patient underwent ANNETTE and cardioversion on 05/07/2018 and maintained normal sinus rhythm until discharge. He was discharged on amiodarone, metoprolol and Apixaban for anticoagulation. Patient was noted to be thrombocytopenic with transaminitis and macrocytosis. This is thought to be secondary to alcohol abuse. Patient was advised to follow-up with pulmonology Dr. Blackwell within 1 week of discharge. Patient was advised follow-up with his primary care provider within 1-2 days of discharge. Patient was advised to follow-up with cardiology Dr. Corona within 1 week of discharge. Pertinent Studies: Chest x-ray EEG ANNETTE Echocardiogram Procedures: Cardioversion Patient Condition at Discharge: Fair Plan - Discharge Summary Discharge Rx Participant: No New Discharge Prescriptions: New Amiodarone [Cordarone] 400 mg PO BID #6 tab Lisinopril [Zestril] 2.5 mg PO DAILY #30 tab Metoprolol Succinate (ER) [Toprol XL] 75 mg PO DAILY #30 tab.er.24h Disulfiram 500 mg PO -KT #14 tablet Folic Acid 1 mg PO DAILY@1200 #30 tab Multivitamins, Thera [Multivitamin (formulary)] 1 each PO DAILY@1200 #30 tab Thiamine [Vitamin B-1] 100 mg PO DAILY@1200 #60 tab Apixaban [Eliquis] 5 mg PO BID #60 tab Discharge Medication List Amiodarone [Cordarone] 400 mg PO BID #6 tab 05/09/18 [Rx] Apixaban [Eliquis] 5 mg PO BID #60 tab 05/09/18 [Rx] Disulfiram 500 mg PO AC-BRKFST #14 tablet 05/09/18 [Rx] Folic Acid 1 mg PO DAILY@1200 #30 tab 05/09/18 [Rx] Lisinopril [Zestril] 2.5 mg PO DAILY #30 tab 05/09/18 [Rx] Metoprolol Succinate (ER) [Toprol XL] 75 mg PO DAILY #30 tab.er.24h 05/09/18 [Rx ] Multivitamins, Thera [Multivitamin (formulary)] 1 each PO DAILY@1200 #30 tab [Rx] Thiamine [Vitamin B-1] 100 mg PO DAILY@1200 #60 tab 05/09/18 [Rx] Follow up Appointment(s)/Referral(s): Marcus Blackwell MD [STAFF PHYSICIAN] - 1 Week None,Stated [Primary Care Provider] - 1-2 days Tristian Corona MD [STAFF PHYSICIAN] - 1 Week Ambulatory/Diagnostic Orders: TSH, 3rd Generation [LAB.AMB] Time Frame: 1 Week, Location: None Selected Patient Instructions/Handouts: Apixaban (By mouth), Transesophageal Echocardiogram (DC), Alcohol Withdrawal (ED), Safe Use of Anticoagulants (DC), Cardioversion (DC) Activity/Diet/Wound Care/Special Instructions: Free moth coupon given for eliquis. Please call cardiology prior to running out. They may be able to give you samples. Please make follow up appointments post rehab stay Please take all medications as advised. Please follow up with your primary care provider within 1-2 days of discharge. You will be given 2 weeks of Antabuse. Please follow up with your primary care provider for continuation of treatment. Please follow up with Cardiology with the appointment given to you. Please follow up with Pulmonology with the appointment given to you. Please take all medications as advised. Discharge Disposition: HOME SELF-CARE
== END 2018-05-09 11:05 | disposition home or self-care (01) | DRG 308 ==
LOC: EC 19:27 → 3SCARD 04-29 00:17 → 2SICU 04-29 11:43 → 3SCARD 05-06 15:03
PROVIDERS: ADMIT Internal Medicine; ATTEND Internal Medicine
PROC: 03HY32Z Insertion of Monitoring Device into Upper Artery, Percutaneous Approach (ICD-10-PCS; 2018-04-29)
PROC: 4A133B1 Monitoring of Arterial Pressure, Peripheral, Percutaneous Approach (ICD-10-PCS; 2018-04-29)
PROC: 4A133J1 Monitoring of Arterial Pulse, Peripheral, Percutaneous Approach (ICD-10-PCS; 2018-04-29)
PROC: 5A1945Z Respiratory Ventilation, 24-96 Consecutive Hours (ICD-10-PCS; 2018-04-29)
PROC: 0BH17EZ Insertion of Endotracheal Airway into Trachea, Via Natural or Artificial Opening (ICD-10-PCS; 2018-04-29)
PROC: 5A2204Z Restoration of Cardiac Rhythm, Single (ICD-10-PCS; 2018-05-07)
PROC: B246ZZ4 Ultrasonography of Right and Left Heart, Transesophageal (ICD-10-PCS; principal; 2018-05-07 11:45)
DX: I48.1 Persistent atrial fibrillation (principal); J96.01 Acute respiratory failure with hypoxia; G92 Toxic encephalopathy; I50.23 Acute on chronic systolic (congestive) heart failure; F10.231 Alcohol dependence with withdrawal delirium; I24.8 Other forms of acute ischemic heart disease; J98.11 Atelectasis; R56.9 Unspecified convulsions; I11.0 Hypertensive heart disease with heart failure; D69.59 Other secondary thrombocytopenia; I95.9 Hypotension, unspecified; R16.0 Hepatomegaly, not elsewhere classified; I42.6 Alcoholic cardiomyopathy; E83.42 Hypomagnesemia; K76.0 Fatty (change of) liver, not elsewhere classified; D75.89 Other specified diseases of blood and blood-forming organs; R21 Rash and other nonspecific skin eruption; Y90.8 Blood alcohol level of 240 mg/100 ml or more; Z90.49 Acquired absence of other specified parts of digestive tract
CPT/HCPCS: 36415; 36600; 71045; 76705; 80048; 80053; 80061; 80320; 81001; 81003; 82330; 82533; 82550; 82553; 82607; 82746; 82805; 83690; 83735; 83880; 84100; 84132; 84439; 84443; 84481; 84484; 85025; 85027; 85610; 85730; 92960; 93005; 93306; 93312; 93320; 93325; 94002; 94003; 94640; 95816; 96361; 96365; 96366; 96372; 96374; 96375; 96376; 99285

== ENCOUNTER → 2018-10-10 | Outpatient (CLI) | payer OTHER ==
--- NOTE | 2018-10-10 09:19 | MR ---
EXAMINATION TYPE: MR lumbar spine wo/w con DATE OF EXAM: 10/10/2018 COMPARISON: HISTORY: Radiculopathy, lumbar region TECHNIQUE: Multiplanar, multisequence images of the lumbar spine were acquired utilizing 13 mL intravenous Gadav ist gadolinium contrast. L1-L2: Normal disc appearance without desiccation. No herniation, protrusion or disc bulging. No ca nal stenosis is present. Foramina are patent bilaterally. L2-L3: Normal disc appearance without desiccation. No herniation, protrusion or disc bulging. No ca nal stenosis is present. Foramina are patent bilaterally. L3-L4: No significant foraminal encroachment or spinal stenosis. Broad-based posterior disc bulge con tacts anterior thecal sac. L4-L5: There is some facet arthropathy change. No significant spinal stenosis. There is a posterior b road-based disc bulge causing mild anterior mass effect on the thecal sac. Circumferential extension of endplate disc complex encroaches slightly on the right neural foramen. L5-S1: Facet arthropathy changes present. There is no significant spinal stenosis, disc herniation, o r foraminal encroachment. Lumbar segments are intact. No paraspinal masses are identified. Conus medullaris has a normal appe arance. Lumbar vertebral bodies show preserved height and alignment. Loss of disc height and signal i s present especially at L4-5, loss of disc signal L3-4 compatible disc desiccation and degenerative d isc disease. Disc height loss also present L5-S1. There is mild multilevel spondylosis present. Infer ior endplate Schmorl's node formation present L4 to the left of midline, L3 more centrally. No abnorm al enhancement following contrast administration. IMPRESSION: Mild degenerative disc disease, Schmorl's node formation, facet arthropathy and additional findings karissa castellanos
== END | disposition home or self-care (01) ==
LOC: RADMRIMAIN 07:37
PROVIDERS: ATTEND Physician Assistant
DX: M51.16 Intervertebral disc disorders with radiculopathy, lumbar region (principal); M47.26 Other spondylosis with radiculopathy, lumbar region; M51.46 Schmorl's nodes, lumbar region; M46.96 Unspecified inflammatory spondylopathy, lumbar region
CPT/HCPCS: 72158; A9585

== ENCOUNTER → 2022-12-28 | Outpatient (CLI) | payer OTHER ==
--- NOTE | 2022-12-28 14:28 | CT ---
EXAMINATION TYPE: CT lumbar spine wo con CT DLP: 951 mGycm, Automated exposure control for dose reduction was used. DATE OF EXAM: 12/28/2022 2:13 PM COMPARISON: MRI lumbar spine 10/10/2018. CLINICAL INDICATION:Male, 42 years old with history of M47.26 OTHER SPONDYLOSIS WITH RADICULOPATHY, L UMBA; PHH, CHRONIC BACK PAIN AND DOWN BOTH LEGS TECHNIQUE: Multiple axial images were obtained from the midportion of T11 through the sacroiliac tala nts. Soft tissue and bone windows in coronal and sagittal planes were obtained and reviewed. FINDINGS: Alignment: There are 5 lumbar type vertebral bodies within normal alignment. Bone/discs: No evidence of fracture is identified. Disc space narrowing with endplate sclerosis at L 4-L5 and L5-S1. Prominent Schmorl's node involving the inferior endplate of the L3 vertebral body. Ad ditional small Schmorl's nodes identified. T12-L1: No spinal canal or neural foraminal stenosis is id entified. L1-L2: No spinal canal or neural foraminal stenosis is identified. L2-L3: No spinal canal or neural foraminal stenosis is identified. L3-L4: Broad-based disc bulge with mild effacement of the anterior thecal sac. Bilateral facet arthro sindy. No neural foraminal stenosis. L4-L5: Broad-based disc bulge with mild effacement of the anterior thecal sac. Bilateral facet arthr opathy. Mild bilateral neural foraminal stenosis. L5-S1: Disc is round along its posterior without significant central canal stenosis. No neural forami nal stenosis Other: None IMPRESSION: 1. No evidence for spinal fracture. 2. Multilevel degenerative disc disease of the lower lumbar spine with facet arthropathy as described above.
--- NOTE | 2022-12-28 14:33 | MR ---
EXAMINATION TYPE: MR lumbar spine wo con DATE OF EXAM: 12/28/2022 COMPARISON: MRI lumbar spine 10/10/2018, CT lumbar spine 12/28/2022, lumbar spine radiograph 12/21/2022 HISTORY: Low back pain TECHNIQUE: Multiplanar, multisequence images of the lumbar spine were acquired without IV contrast. FINDINGS: Lumbar segments are intact. No paraspinal masses are identified. Conus medullaris has a normal appe arance. Multilevel Schmorl's nodes with edema of the lower lumbar spine. This is most prominent invol ving the inferior endplate of the L3 vertebral body. Multilevel disc desiccation of the lower lumbar spine. Multilevel type II Modic changes of the lower lumbar spine. L1-L2: No herniation, protrusion or disc bulging. No canal stenosis is present. Foramina are patent bilaterally. L2-L3: No herniation, protrusion or disc bulging. No canal stenosis is present. Foramina are patent bilaterally. L3-L4: Broad-based disc bulge without significant effacement of the intrathecal sac. Bilateral facet arthropathy. No significant neural foraminal stenosis. L4-L5: Broad-based disc bulge without significant effacement of the intrathecal sac. Bilateral facet arthropathy. Minimal bilateral neural foraminal stenosis. L5-S1: No herniation, protrusion or disc bulging. No canal stenosis is present. Foramina are patent bilaterally. IMPRESSION: 1. No disc herniation or significant spinal canal stenosis. 2. Mild multilevel degenerative disc disease of the lower lumbar spine from L3 to L5 with facet arthr opathy as described above. 3. Prominent acute/subacute Schmorl's node involving the inferior endplate of the L3 vertebral body.
== END | disposition home or self-care (01) ==
LOC: RADMRIMAIN 13:00
PROVIDERS: ATTEND Orthopaedic Surgery
DX: M47.26 Other spondylosis with radiculopathy, lumbar region (principal); M51.16 Intervertebral disc disorders with radiculopathy, lumbar region
CPT/HCPCS: 72131; 72148

== ENCOUNTER 2023-03-20 08:47 | Emergency (ER) | payer OTHER ==
--- NOTE | 2023-03-20 09:08 | ED ---
General Adult HPI - General Source: patient, RN notes reviewed Mode of arrival: ambulatory Limitations: no limitations <Krzysztof Proctor - Last Filed: 03/20/23 09:05> - General Source: patient, RN notes reviewed Mode of arrival: ambulatory Limitations: no limitations <Javier Yang - Last Filed: 03/20/23 15:01> - General Stated complaint: Abdominal pain Time Seen by Provider: 03/20/23 09:05 - History of Present Illness Initial comments: 43-year-old male presents emergency Department chief complaint of crying, abdominal pain. Patient states that he has back surgery at the first year. Patient states that today he went to listen felt like something pulled, poor and his lower abdomen and radiates into his groin, scrotum region. Patient is concerned that he has a hernia. Patient states he has some hesitancy with urination. He feels like it's change in his bowel movements. Patient denies fever but states been having some chills. Patient states he is very anxious about being in the hospital. (Krzysztof Proctor) Patient is a pleasant 43-year-old male presenting to the emergency department with concern for scrotal pain. Patient does have chronic back pain. Patient was lifting a couple of weeks ago and had some discomfort rating towards the scrotum since that time. Patient was lifting again several days ago with some increased discomfort. Patient's feels there is a bulge at times in the left inguinal region. Patient does have urinary frequency. No incontinence or retention of bowel or bladder. (Javier Yang) - Related Data Previous Rx's Medication Instructions Recorded Amiodarone [Cordarone] 400 mg PO BID #6 tab 05/09/18 Apixaban [Eliquis] 5 mg PO BID #60 tab 05/09/18 Disulfiram 500 mg PO AC-BRKFST #14 tablet 05/09/18 Folic Acid 1 mg PO DAILY@1200 #30 tab 05/09/18 Metoprolol Succinate (ER) [Toprol 75 mg PO DAILY #30 tab.er.24h 05/09/18 XL] Multivitamins, Thera [Multivitamin 1 each PO DAILY@1200 #30 tab 05/09/18 (formulary)] Thiamine [Vitamin B-1] 100 mg PO DAILY@1200 #60 tab 05/09/18 lisinopriL [Zestril] 2.5 mg PO DAILY #30 tab 05/09/18 Sulfamethox-Tmp 800-160Mg [Bactrim 1 each PO Q12HR #20 tab 03/20/23 DS 800-160 mg] Allergies Allergy/AdvReac Type Severity Reaction Status Date / Time piperacillin [From Zosyn] Allergy Intermediate Rash/Hives Verified 03/20/23 08:58 tazobactam [From Zosyn] Allergy Intermediate Rash/Hives Verified 03/20/23 08:58 Review of Systems ROS Other: All systems not noted in ROS Statement are negative. <Krzysztof Proctor - Last Filed: 03/20/23 09:05> ROS Other: All systems not noted in ROS Statement are negative. Constitutional: Denies: fever, chills Eyes: Denies: eye pain ENT: Denies: ear pain Respiratory: Denies: cough Cardiovascular: Denies: chest pain Endocrine: Denies: fatigue Gastrointestinal: Denies: abdominal pain, nausea, vomiting Genitourinary: Reports: as per HPI, urgency, frequency Musculoskeletal: Reports: as per HPI, back pain (Chronic, unchanged) Neurological: Denies: weakness <Javier Yang - Last Filed: 03/20/23 15:01> ROS Statement: Those systems with pertinent positive or pertinent negative responses have been documented in the HPI. Past Medical History Past Medical History: No Reported History Additional Past Medical History / Comment(s): pt states no medical history History of Any Multi-Drug Resistant Organisms: None Reported Past Surgical History: Appendectomy, Tonsillectomy Past Anesthesia/Blood Transfusion Reactions: No Reported Reaction Past Psychological History: No Psychological Hx Reported Past Alcohol Use History: Abuse Past Drug Use History: Marijuana <Krzysztof Proctor - Last Filed: 03/20/23 09:05> General Exam Limitations: no limitations <Krzysztof Proctor - Last Filed: 03/20/23 09:05> Limitations: no limitations General appearance: alert, in no apparent distress Head exam: Present: normocephalic Eye exam: Present: normal appearance Neck exam: Present: normal inspection Respiratory exam: Present: normal lung sounds bilaterally Cardiovascular Exam: Present: regular rate, normal rhythm GI/Abdominal exam: Present: soft, tenderness (Minimal suprapubic tenderness). Absent: distended exam: Present: normal inspection, other (Left testicle tenderness. Left inguinal tenderness without minimal swelling, reducible) Extremities exam: Present: normal inspection Neurological exam: Present: alert. Absent: motor sensory deficit Psychiatric exam: Present: normal affect, normal mood Skin exam: Present: normal color <Javier Yang - Last Filed: 03/20/23 15:01> - General Exam Comments Initial Comments: Visual Physical Exam Vital signs reviewed General: Well-appearing, nontoxic, no acute distress. Head: Normocephalic, atraumatic Eyes: PERRLA, EOMI ENT: Airway patent Chest: Nonlabored breathing Skin: No visual rash, normal skin tone Neuro: Alert and oriented 3 Musculoskeletal: No gross abnormalities (Krzysztof Proctor) Course Vital Signs 03/20/23 09:00 Temperature 97.8 F Pulse Rate 136 H Respiratory 18 Rate Blood Pressure 153/84 O2 Sat by Pulse 97 Oximetry Medical Decision Making <Krzysztof Proctor - Last Filed: 03/20/23 09:05> - Lab Data Result diagrams: 03/20/23 09:14 03/20/23 09:14 <Javier Yang - Last Filed: 03/20/23 15:01> - Medical Decision Making I performed a quick note portion of this chart signed Krzysztof Proctor PA-C (Krzysztof Proctor) Was pt. sent in by a medical professional or institution ([facility], DYED YARN OPERATOR, urgent care, hospital, or senior living...) When possible be specific @ -No Did you speak to anyone other than the patient for history (EMS, parent, family, police, friend...)? What history was obtained from this source @ -No Did you review nursing and triage notes (agree or disagree)? Why? @ -I reviewed and agree with nursing and triage notes Were old charts reviewed (outside hosp., previous admission, EMS record, old EKG, old radiological studies, urgent care reports/EKG's, senior living records)? Report findings @ -No old charts were reviewed Differential Diagnosis (chest pain, altered mental status, abdominal pain women, abdominal pain men, vaginal bleeding, weakness, fever, dyspnea, syncope, headache, dizziness, GI bleed, back pain, seizure, CVA, palpatations, mental health, musculoskeletal)? @ -Differential Abdominal Pain Men: Appendicitis, cholecystitis, diverticulosis, ischemic bowel, pancreatitis, hepatitis, UTI, gastroenteritis, AAA, incarcerated hernia, bowel obstruction, constipation, inflammatory bowel, hepatitis, peptic ulcer disease, splenic infarction, perforated viscus, testicular torsion, this is not meant to be an a ll-inclusive list EKG interpreted by me (3pts min.). @ -As above X-rays interpreted by me (1pt min.). @ -None done CT interpreted by me (1pt min.). @ -Computed tomography scan of the abdomen pelvis does show small left inguinal hernia. Thickening of urinary bladder. U/S interpreted by me (1pt. min.). @ -Report reviewed What testing was considered but not performed or refused? (CT, X-rays, U/S, labs)? Why? @ -None What meds were considered but not given or refused? Why? @ -None Did you discuss the management of the patient with other professionals (professionals i.e. , PA, DYED YARN OPERATOR, lab, RT, psych nurse, social security assessor, project designer, teacher, nursing officer, transplant case manager)? Give summary @ -Case was discussed with Dr. Eldridge who did review the films. He does want patient to be discharged with follow-up in his office tomorrow. Was smoking cessation discussed for >3mins.? @ -No Was critical care preformed (if so, how long)? @ -No Were there social determinants of health that impacted care today? How? (Homelessness, low income, unemployed, alcoholism, drug addiction, transportation, low edu. Level, literacy, decrease access to med. care, long term, rehab)? @ -No Was there de-escalation of care discussed even if they declined (Discuss DNR or withdrawal of care, Hospice)? DNR status @ -No What co-morbidities impacted this encounter? (DM, HTN, Smoking, COPD, CAD, Cancer, CVA, ARF, Chemo, Hep., AIDS, mental health diagnosis, sleep apnea, morbid obesity)? @ -None Was patient admitted / discharged? Hospital course, mention meds given and route, prescriptions, significant lab abnormalities, going to OR and other pertinent info. @ -Patient does have some mild urinary symptoms with thickening of the bladder on computed tomography scan. Patient will be prescribed antibiotics and urine culture will be ordered. Patient will be discharged with follow-up tomorrow with Dr. Carpio. Patient will be given a starter pack of pain medication. Undiagnosed new problem with uncertain prognosis? @ -No Drug Therapy requiring intensive monitoring for toxicity (Heparin, Nitro, Insulin, Cardizem)? @ -No Were any procedures done? @ -No Diagnosis/symptom? @ -Inguinal hernia Acute, or Chronic, or Acute on Chronic? @ -Acute Uncomplicated (without systemic symptoms) or Complicated (systemic symptoms)? @ -default Side effects of treatment? @ -No Exacerbation, Progression, or Severe Exacerbation? @ -No Poses a threat to life or bodily function? How? (Chest pain, [place], [place], pneumonia, PE, COPD, DKA, ARF, appy, cholecystitis, CVA, Diverticulitis, Homicidal, Suicidal, threat to staff... and all critical care pts) @ -No (Javier Yang) - Lab Data Lab Results 03/20/23 03/20/23 03/20/23 Range/Units 09:14 09:14 09:14 WBC 7.7 (3.8-10.6) k/uL RBC 5.35 (4.30-5.90) m/uL Hgb 17.0 (13.0-17.5) gm/dL Hct 47.9 (39.0-53.0) % MCV 89.6 (80.0-100.0) fL MCH 31.8 (25.0-35.0) pg MCHC 35.5 (31.0-37.0) g/dL RDW 12.3 (11.5-15.5) % Plt Count 248 (150-450) k/uL MPV 9.1 Neutrophils % 73 % Lymphocytes % 21 % Monocytes % 5 % Eosinophils % 1 % Basophils % 0 % Neutrophils # 5.6 (1.3-7.7) k/uL Lymphocytes # 1.6 (1.0-4.8) k/uL Monocytes # 0.4 (0-1.0) k/uL Eosinophils # 0.1 (0-0.7) k/uL Basophils # 0.0 (0-0.2) k/uL Sodium 139 (137-145) mmol/L Potassium 4.0 (3.5-5.1) mmol/L Chloride 101 (98-107) mmol/L Carbon Dioxide 20 L (22-30) mmol/L Anion Gap 18 mmol/L BUN 14 (9-20) mg/dL Creatinine 0.81 (0.66-1.25) mg/dL Est GFR (CKD-EPI)AfAm >90 (>60 ml/min/1.73 sqM) Est GFR (CKD-EPI)NonAf >90 (>60 ml/min/1.73 sqM) Glucose 115 H (74-99) mg/dL Plasma Lactic Acid Vignesh (0.7-2.0) mmol/L Calcium 10.0 (8.4-10.2) mg/dL Total Bilirubin 0.5 (0.2-1.3) mg/dL AST 29 (17-59) U/L ALT 30 (4-49) U/L Alkaline Phosphatase 65 (38-126) U/L Total Protein 9.7 H (6.3-8.2) g/dL Albumin 4.9 (3.5-5.0) g/dL Lipase 161 (23-300) U/L Urine Color Colorless Urine Appearance Clear (Clear) Urine pH 6.5 (5.0-8.0) Ur Specific [place] 1.008 (1.001-1.035) Urine Protein Negative (Negative) Urine Glucose (UA) Negative (Negative) Urine Ketones Negative (Negative) Urine Blood Negative (Negative) Urine Nitrite Negative (Negative) Urine Bilirubin Negative (Negative) Urine Urobilinogen <2.0 (<2.0) mg/dL Ur Leukocyte Esterase Negative (Negative) 03/20/23 Range/Units 09:14 WBC (3.8-10.6) k/uL RBC (4.30-5.90) m/uL Hgb (13.0-17.5) gm/dL Hct (39.0-53.0) % MCV (80.0-100.0) fL MCH (25.0-35.0) pg MCHC (31.0-37.0) g/dL RDW (11.5-15.5) % Plt Count (150-450) k/uL MPV Neutrophils % % Lymphocytes % % Monocytes % % Eosinophils % % Basophils % % Neutrophils # (1.3-7.7) k/uL Lymphocytes # (1.0-4.8) k/uL Monocytes # (0-1.0) k/uL Eosinophils # (0-0.7) k/uL Basophils # (0-0.2) k/uL Sodium (137-145) mmol/L Potassium (3.5-5.1) mmol/L Chloride (98-107) mmol/L Carbon Dioxide (22-30) mmol/L Anion Gap mmol/L BUN (9-20) mg/dL Creatinine (0.66-1.25) mg/dL Est GFR (CKD-EPI)AfAm (>60 ml/min/1.73 sqM) Est GFR (CKD-EPI)NonAf (>60 ml/min/1.73 sqM) Glucose (74-99) mg/dL Plasma Lactic Acid Vignesh 1.7 (0.7-2.0) mmol/L Calcium (8.4-10.2) mg/dL Total Bilirubin (0.2-1.3) mg/dL AST (17-59) U/L ALT (4-49) U/L Alkaline Phosphatase (38-126) U/L Total Protein (6.3-8.2) g/dL Albumin (3.5-5.0) g/dL Lipase (23-300) U/L Urine Color Urine Appearance (Clear) Urine pH (5.0-8.0) Ur Specific [place] (1.001-1.035) Urine Protein (Negative) Urine Glucose (UA) (Negative) Urine Ketones (Negative) Urine Blood (Negative) Urine Nitrite (Negative) Urine Bilirubin (Negative) Urine Urobilinogen (<2.0) mg/dL Ur Leukocyte Esterase (Negative) Disposition <Krzysztof Proctor - Last Filed: 03/20/23 09:05> Is patient prescribed a controlled substance at d/c from ED?: No Time of Disposition: 14:59 <Javier Yang - Last Filed: 03/20/23 15:01> Clinical Impression: Inguinal hernia Disposition: HOME SELF-CARE Condition: Stable Instructions (If sedation given, give patient instructions): Inguinal Hernia (ED), Urinary Tract Infection in Men (ED) Additional Instructions: Prescriptions for antibiotics have been sent to pharmacy. Please do follow-up with your primary care physician in the next couple days for recheck. Please follow-up tomorrow with Dr. Carpio, number provided. Return for increased pain, swelling, unable to reduce hernia fever, vomiting, worsening symptoms or other concerns Prescriptions: Sulfamethox-Tmp 800-160Mg [Bactrim DS 800-160 mg] 1 each PO Q12HR #20 tab Referrals: Long Carpio MD [STAFF PHYSICIAN] - 1-2 days Aashish Lockwood MD [STAFF PHYSICIAN] - 1-2 days
[2023-03-20 09:24] LABS: Appearance,Urine Clear (Clear); Bilirubin,Urine Negative (Negative); Blood,Urine Negative (Negative); Color,Urine Colorless; Glucose,Urine (UA) Negative (Negative); Ketones,Urine Negative (Negative); Leukocyte Esterase,Urine Negative (Negative); Nitrite,Urine Negative (Negative); PH, Urine 6.5 (5.0-8.0); Protein,Urine Negative (Negative); Specific Gravity,Urine 1.008 (1.001-1.035); Urobilinogen,Urine <2.0 mg/dL (<2.0)
[2023-03-20 09:41] LABS: Basophils % (A) 0 %; Eosinophils # (A) 0.1 k/uL (0-0.7); Eosinophils % (A) 1 %; HCT 47.9 % (39.0-53.0); Lymphocytes # (A) 1.6 k/uL (1.0-4.8); Lymphocytes % (A) 21 %; MCH 31.8 pg (25.0-35.0); MCHC 35.5 g/dL (31.0-37.0); MCV 89.6 fL (80.0-100.0); Mean Platelet Volume 9.1; Monocytes # (A) 0.4 k/uL (0-1.0); Monocytes % (A) 5 %; Neutrophils # (A) 5.6 k/uL (1.3-7.7); Neutrophils % (A) 73 %; Platelet Count 248 k/uL (150-450); RBC 5.35 m/uL (4.30-5.90); RDW 12.3 % (11.5-15.5); WBC 7.7 k/uL (3.8-10.6)
[2023-03-20 09:45] LABS: ALT 30 U/L (4-49); AST 29 U/L (17-59); African American GFR (CKD) >90 (>60 ml/min/1.73 sqM); Albumin 4.9 g/dL (3.5-5.0); Alkaline Phosphatase 65 U/L (38-126); Anion Gap 18 mmol/L; Blood Urea Nitrogen 14 mg/dL (9-20); Carbon Dioxide 20 mmol/L (22-30); Chloride 101 mmol/L (98-107); Glucose 115 mg/dL (74-99); Lipase 161 U/L (23-300); Non-African American GFR(CKD) >90 (>60 ml/min/1.73 sqM); Sodium 139 mmol/L (137-145); Total Bilirubin 0.5 mg/dL (0.2-1.3); Total Protein 9.7 g/dL (6.3-8.2)
--- NOTE | 2023-03-20 10:00 | CT ---
EXAMINATION TYPE: CT abdomen pelvis w con DATE OF EXAM: 03/20/2023 COMPARISON: None HISTORY: Left lower quadrant abdominal pain extending into left testicle CT DLP: 2259.4 mGycm, Automated Exposure Control for Dose Reduction was Utilized. CONTRAST: CT scan of the abdomen and pelvis is performed without oral and with IV Contrast, patient injected wi th 100 mL of Isovue 300. FINDINGS: LUNG BASES: No significant abnormality is appreciated. LIVER/GB: Liver is heterogeneously hypodense suggesting diffuse fatty infiltrative hepatocellular dis ease. PANCREAS: No significant abnormality is seen. SPLEEN: There is 2.0 cm splenule in the splenic hilum axial image 20. ADRENALS: No significant abnormality is seen. KIDNEYS: Symmetric cortical medullary uptake and excretion of both kidneys. Mild concentric wall thic kening to the urinary bladder to 7 mm. BOWEL: No abnormal small or large bowel dilatation mild/moderate right-sided colonic fecal prominen ce. No diverticula or convincing CT evidence for acute diverticulitis. PROSTATE/SEMINAL VESICLES: No gross abnormality seen. LYMPH NODES: No greater than 1cm abdominal or pelvic lymph nodes are appreciated. OSSEOUS STRUCTURES: No significant abnormality is seen. OTHER: Small fat-containing left inguinal hernia is seen. IMPRESSION: Mild wall thickening of the urinary bladder raises concern for acute bladder infection. C orrelate clinically. Mild proximal colonic fecal stasis. No bowel obstruction. No acute diverticuliti s.
[2023-03-20] MEDS ORDERED: KETOROLAC 15 MG/ML 1 ML VIAL IM STA (12:26)
--- NOTE | 2023-03-20 13:54 | US ---
EXAMINATION TYPE: US scrotum with doppler. Grayscale and color Doppler Duplex imaging performed of leo lee scrotum. DATE OF EXAM: 03/20/2023 COMPARISON: CT same day. CLINICAL INDICATION: Male, 43 years old with history of pain; Lt groin/ scrotal pain began 3 days ago after lifting dog EXAM MEASUREMENTS: TESTICLES: Right Testicle: 3.3 x 2.0 x 2.7 cm Left Testicle: 3.9 x 2.5 x 2.3 cm EPIDIDYMIS HEAD: Right Epididymis: 0.6 cm Left Epididymis: 0.6 cm Doppler performed to assess for testicular vascularity; good bilateral color flow and waveforms are s een. There is no evidence of testicular torsion. Presence of hydroceles: no Presence of varicoceles: bilateral Patients area of pain at the left groin is also imaged. The spermatic cord is mobile during valsalvae . Varicocele is also noted in this area. IMPRESSION: 1. No evidence for intratesticular mass. 2. Appropriate arterial and venous spectral waveforms bilaterally. 3. Left groin hernia as seen on same day CT. 4. Varicoceles bilaterally.
[2023-03-20] MEDS ORDERED: ACET/COD 300 MG/30 MG STARTER PACK 6 TAB BTL PO STA (14:59)
[2023-03-20 15:00] VITALS: BP 140/93; PULSE 93; RESP 16; TEMP 97.9
== END 2023-03-20 15:43 | disposition home or self-care (01) ==
LOC: EC 08:47
DX: K40.90 Unilateral inguinal hernia, without obstruction or gangrene, not specified as recurrent (principal); I86.1 Scrotal varices; F12.90 Cannabis use, unspecified, uncomplicated; Z88.8 Allergy status to other drugs, medicaments and biological substances; Z90.49 Acquired absence of other specified parts of digestive tract
CPT/HCPCS: 36415; 80053; 83605; 83690; 85025; 81003; 87086; 93975; 76870; 74177; 99284; 96372; J1885; Q9967

== ENCOUNTER → 2023-03-27 | Outpatient (CLI) | payer OTHER | END | disposition home or self-care (01) | LOC: LABPAT 07:29 | PROVIDERS: ATTEND Surgery | DX: Z01.818 Encounter for other preprocedural examination (principal); K40.90 Unilateral inguinal hernia, without obstruction or gangrene, not specified as recurrent; R94.31 Abnormal electrocardiogram [ECG] [EKG] | CPT/HCPCS: 93005 ==

== ENCOUNTER 2023-03-29 10:04 | Day surgery (SDC) | payer OTHER ==
[2023-03-24 11:45] VITALS: BMI 33.3
[~2023-03-29 10:04] MED LIST: ACETAMINOPHEN TAB 500 MG TAB PO PRN; DEXAMETHASONE SOD PHOSPHATE 4 MG/ML 1 ML VIAL IV ONE; HEPARIN SODIUM,PORCINE/PF 5,000 UNIT/0.5 ML SYRINGE SQ PRN; HYDROmorphone 0.5 MG/0.5 ML SYRINGE IVP PRN; LACTATED RINGERS 1,000 ML IV SCH; LIDOCAINE 1% (10MG/ML) FOR IV START INTRADERMA PRN; MIDAZOLAM 2 MG/2 ML VIAL IV PRN; ONDANSETRON 4 MG/2 ML VIAL IVP ONE
[2023-03-29] MEDS ORDERED: LIDOCAINE 1%-EPI 1:100,000 50 ML VIAL SQ ONE ×4 (10:56→12:04)
[2023-03-29] MEDS ORDERED: DEXAMETHASONE SOD PHOSPHATE 4 MG/ML 1 ML VIAL IVP ONE (11:08)
[2023-03-29] MEDS ORDERED: ONDANSETRON 4 MG/2 ML VIAL IVP ONE (11:09)
[2023-03-29] MEDS ORDERED: MIDAZOLAM 2 MG/2 ML VIAL IVP ONE (11:25)
[2023-03-29] MEDS ORDERED: fentaNYL (PF) 50 MCG/ML 2 ML AMP IVP ONE (11:26)
[2023-03-29] MEDS ORDERED: DEXAMETHASONE SOD PHOSPHATE 4 MG/ML 1 ML VIAL ONE (11:38)
[2023-03-29] MEDS ORDERED: PROPOFOL 10 MG/ML 20 ML VIAL IV ONE (11:38)
[2023-03-29] MEDS ORDERED: GLYCOPYRROLATE 0.2 MG/ML 2 ML VIAL ONE (11:38)
[2023-03-29] MEDS ORDERED: KETOROLAC 15 MG/ML 1 ML VIAL ONE (11:38)
[2023-03-29] MEDS ORDERED: LIDOCAINE 1% INJ 10MG/ML (20 ML MDV) ONE (11:38)
[2023-03-29] MEDS ORDERED: PHENYLEPHRINE-0.9% NACL SYG 1,000 MCG/10 ML SYRINGE ONE (11:38)
[2023-03-29] MEDS ORDERED: NEOSTIGMINE 1 MG/ML 10 ML VIAL ONE (11:38)
[2023-03-29] MEDS ORDERED: SUCCINYLCHOLINE CHLORIDE 200 MG/10 ML VIAL IV ONE (11:38)
[2023-03-29] MEDS ORDERED: HYDROmorphone (PF) 1 MG/ML ONE (11:38)
[2023-03-29] MEDS ORDERED: ROCURONIUM 10 MG/ML (5 ML VIAL) IV ONE (11:38)
[2023-03-29] MEDS ORDERED: ROPIVACAINE 5 MG/ML 30 ML VIAL ONE (11:38)
[2023-03-29] MEDS ORDERED: fentaNYL (PF) 50 MCG/ML 2 ML AMP ONE (11:38)
[2023-03-29] MEDS ORDERED: KETAMINE HCL IN 0.9 % NACL 50 MG/5 ML SYRINGE ONE (11:38)
[2023-03-29] MEDS ORDERED: SODIUM CHLORIDE 0.9% (PF) 10 ML VIAL ONE (11:38)
[2023-03-29] MEDS ORDERED: MIDAZOLAM 2 MG/2 ML VIAL ONE (11:38)
--- NOTE | 2023-03-29 11:47 | P.ANPRN ---
Procedure Note - Anesthesia - Nerve Block Performed Bilateral Erector Spinae Single Time Out Performed: Yes Date of Procedure: 03/29/23 Procedure Start Time: Procedure Stop Time: : Location of Patient: PreOp Indication: Acute Post-Operative Pain, Requested by Surgeon Sedation Type: Sedate with meaningful contact maintained Preparation: Sterile Prep Position: Sitting Needle Types: Pajunk Needle Gauge: 21 Ultrasound used to visualize needle placement: Yes Ultrasound used to observe medication spread: Yes Injectate: 0.5% Ropivacaine (see comment for volume) (15 ml + 15 ml NS + 4 mg Dexamethasone per side) Blood Aspirated: No Pain Paresthesia on Injection Noted: No Resistance on Injection: Normal Image Stored and Saved: Yes Events: Uneventful and Well Tolerated
[2023-03-29] MEDS ORDERED: LACTATED RINGERS 1,000 ML IV ONE (12:20)
--- NOTE | 2023-03-29 12:47 | P.OP ---
Date of Procedure: 03/29/23 Preoperative Diagnosis: Left inguinal hernia Postoperative Diagnosis: Left inguinal hernia Procedure(s) Performed: Laparoscopic robotic-assisted repair of of left inguinal hernia Excision of left cord lipoma Transversus abdominis plane block Anesthesia: CHAD Surgeon: Long Carpio Pathology: other (Cord lipoma) Condition: stable Disposition: PACU Description of Procedure: The patient's placed on the operating table in the supine position. The patient received general anesthesia. The patient's abdomen was prepped and draped in usual sterile fashion. The skin was anesthetized 1% local Xylocaine at the incision sites. Using an 11 blade a skin incision was made at the umbilicus. The fascia was grasped with a [place] and then the peritoneal cavity was entered with the Veress needle. Position of the Veress needle was confirmed with a positive drop test. After adequate insufflation a 5 mm trocar was placed into the peritoneal cavity. The Laparoscope was placed the peritoneal cavity. And a robotic 8 mm trocar was placed in the right lateral position and then another 8 mm robotic trochars placed in the left lateral position. The original 5 mm trocar was exchanged for a 12 mm trocar. The patient was placed in reverse Trendelenburg and then the patient was docked to the robot. Next the peritoneum over top of the hernia was incised and then using blunt and sharp dissection and electrocautery the hernia sac was dissected free from the floor of the inguinal canal. The hernia sac was completely reduced into the peritoneal cavity. And then using the [employer] metall[employer]ist process mesh the hernia was repaired. The cord lipoma was dissected free and sent to pathology. The peritoneum was then sutured with 20V lock suture. The patient was then undocked the robot. The needle was withdrawn from the peritoneal cavity. The umbilical trocar site was closed with 0 Ethibond suture. The skin was closed interrupted 3-0 Monocryl suture. Dermabond dressing was applied. Patient was sent to recovery in stable condition.
[2023-03-29] MEDS ORDERED: HYDROmorphone 0.5 MG/0.5 ML SYRINGE IVP ONE (12:57)
[2023-03-29 13:04] VITALS: TEMP 97.1
[2023-03-29 13:29] VITALS: RESP 16
[2023-03-29 14:17] VITALS: BP 127/84; PULSE 64
== END 2023-03-29 14:29 | disposition home or self-care (01) ==
LOC: OR 10:04
PROVIDERS: ATTEND Surgery
DX: K40.90 Unilateral inguinal hernia, without obstruction or gangrene, not specified as recurrent (principal); D17.6 Benign lipomatous neoplasm of spermatic cord; I48.91 Unspecified atrial fibrillation; F43.10 Post-traumatic stress disorder, unspecified; F12.90 Cannabis use, unspecified, uncomplicated; Z79.899 Other long term (current) drug therapy; Z88.8 Allergy status to other drugs, medicaments and biological substances; Z88.1 Allergy status to other antibiotic agents
CPT/HCPCS: 49650; S2900; 64999; 88305

== ENCOUNTER → 2023-12-18 | Outpatient (CLI) | payer OTHER ==
--- NOTE | 2023-12-18 09:25 | MR ---
EXAMINATION TYPE: MR lumbar spine wo con DATE OF EXAM: 12/18/2023 COMPARISON: 12/28/2022 HISTORY: Lower back pain TECHNIQUE: T1 and T2 axial and sagittal images of the lumbar spine are submitted. FINDINGS: There is no abnormal signal seen within the visualized spinal cord or paraspinal soft tissu es. Straightening of the normal lumbar lordosis. At L1-2 there is no disc herniation canal stenosis. No foraminal encroachment. At L2-3 there is no disc herniation or canal stenosis. No foraminal encroachment. At L3-4 there is stable discogenic marrow changes with Schmorl's node involving inferior endplate of L3. Mild degenerative disc disease and circumferential disc bulging no focal herniation. Facet arthro sindy and mild bilateral foraminal encroachment greater on the left secondary to left lateral disc bu lging. At L4-5 there is severe degenerative disc disease with discogenic marrow changes. Mild broad-based di sc bulging but no focal herniation. There is posterior spondylosis\spurring. Hypertrophic facet arthropathy. No focal disc herniation or canal stenosis. Mild bilateral foraminal At L5-S1 there is severe degenerative disc disease with discogenic marrow changes. There is facet art hropathy but no disc herniation or canal stenosis. Neural foramina are patent. IMPRESSION: 1. Degenerative disc disease with discogenic marrow changes are stable. Severe degenerative disc dise ase L4-5 and L5-S1. 2. Disc bulging L3-L4 greater laterally to left resulting bilateral mild foraminal encroachment great er on the left. Recommend correlation for radiculopathy on the left at this level. 3. Multilevel degenerative disc disease.
--- NOTE | 2023-12-18 09:37 | CT ---
EXAMINATION TYPE: CT lumbar spine wo con CT DLP: 1717.4 mGycm, Automated exposure control for dose reduction was used. DATE OF EXAM: 12/18/2023 8:49 AM COMPARISON: 03/20/2023. CLINICAL INDICATION: Male, 43 years old with history of M48.061 Spinal S M54.50 LOW BACK PAIN, UNSPEC IFIED; PHH, low back pain, pre surgical. hx of back injury x10+ years ago TECHNIQUE: Multiple axial images were obtained from the midportion of T11 through the sacroiliac tala nts. Soft tissue and bone windows in coronal and sagittal planes were obtained and reviewed. Contrast used:(None, if empty). Oral contrast used: (None, if empty). FINDINGS: Alignment: There are 5 lumbar type vertebral bodies within normal alignment. Bone: Moderate degeneration changes throughout the spine worse at the adjoining endplates of L4-L5 po steriorly and to lesser extent the adjoining endplates of L3-L4. Schmorl's nodes are seen in the infe rior endplate of L3-L4. Discs: T12-L1: No spinal canal or neural foraminal stenosis is identified. L1-L2: No spinal canal or neural foraminal stenosis is identified. L2-L3: No spinal canal or neural foraminal stenosis is identified. L3-L4: No spinal canal or neural foraminal stenosis is identified. L4-L5: No spinal canal or neural foraminal stenosis is identified. L5-S1: No spinal canal or neural foraminal stenosis is identified. Other: None IMPRESSION: 1. No evidence for spinal fracture. 2. Degeneration changes spine worse at the lower spine the adjoining endplates of L4 and L5 posterior ly and with Schmorl nodes involving the inferior endplate of L3.
== END | disposition home or self-care (01) ==
LOC: RADMRIMAIN 07:44
PROVIDERS: ATTEND Orthopaedic Surgery
DX: M47.27 Other spondylosis with radiculopathy, lumbosacral region (principal); M51.17 Intervertebral disc disorders with radiculopathy, lumbosacral region; M51.16 Intervertebral disc disorders with radiculopathy, lumbar region
CPT/HCPCS: 72131; 72148

== ENCOUNTER → 2024-04-19 | Outpatient (CLI) | payer OTHER ==
--- NOTE | 2024-04-19 11:32 | XR ---
EXAMINATION TYPE: XR chest 2V DATE OF EXAM: 04/19/2024 COMPARISON: 05/06/2018 CLINICAL INDICATION: Male, 44 years old with history of PREOP CLEARANCE Z01.818; , TECHNIQUE: XR chest 2V views of the chest. FINDINGS: The lungs are clear and there is no pneumothorax, pleural effusion, or focal pneumonia. Heart size normal and no overt failure. Osseous structures intact. IMPRESSION: 1. No acute process. [facility], , 04/19/2024 11:30 AM
== END | disposition home or self-care (01) ==
LOC: RADXRMAIN 11:16
PROVIDERS: ATTEND Internal Medicine
DX: Z01.818 Encounter for other preprocedural examination (principal)
CPT/HCPCS: 71046

== ENCOUNTER → 2024-05-01 | Outpatient (CLI) | payer OTHER ==
[2024-05-01 16:16] LABS: Protein, Total 8.2 g/dL (6.2-8.2)
== END | disposition home or self-care (01) ==
LOC: LABPAT 10:11
PROVIDERS: ATTEND Internal Medicine
DX: R77.1 Abnormality of globulin (principal)
CPT/HCPCS: 36415; 84165; 86334

== ENCOUNTER → 2024-05-01 | Outpatient (CLI) | payer OTHER | END | disposition home or self-care (01) | LOC: LABPAT 10:08 | PROVIDERS: ATTEND Orthopaedic Surgery | DX: Z01.812 Encounter for preprocedural laboratory examination (principal); M48.061 Spinal stenosis, lumbar region without neurogenic claudication; M47.26 Other spondylosis with radiculopathy, lumbar region; Z22.322 Carrier or suspected carrier of Methicillin resistant Staphylococcus aureus | CPT/HCPCS: 86850; 86900; 86901; 87070 ==

== ENCOUNTER 2024-05-06 05:34 | Inpatient (IN) | payer OTHER ==
[2024-05-01 09:00] VITALS: BMI 34.0
--- NOTE | 2024-05-05 14:14 | P.HPOR ---
History of Present Illness H&P Date: 05/01/24 .D:Date: 05/01/24 : 05:48pm .T:Title: DEMOGRAPHICS: Height: 64 Weight: 280 lbs. BMI: 34.1 kg/m2 Occupation: School VAS: 7 CLINICAL SUMMARY: 43-year-old male, Mr. Bautista, presenting with severe low back pain (VAS 7/10) and bilateral lower extremity symptoms. Stern findings include: - Progressive bilateral leg weakness and radiculopathy with numbness and tingling - Symptoms worsen with prolonged standing, walking, sitting, and particularly when transitioning from seated to standing position - Imaging shows severe L4-S1 spondylosis with Grade I spondylolisthesis at L4-5, disc collapse, and foraminal stenosis Failed conservative treatments including PT and home exercise program which worsened symptoms. Surgery recommended: L4-S1 posterolateral and interbody fusion with decompression. Patient understands risks/benefits and wishes to proceed with surgery. CHIEF COMPLAINT: Re-check on low back pain HISTORY: Jf presents today for follow up and pre op assessment for his low back and low back surgery. He has had a bit of an ordeal regarding his hernias, stomach and getting all this sorted out. He has finally healed from all of this and is ready to continue with his low back and get this fixed. He states he continues to have low back pain that is sever 10/10 lately. He states LE are weak and progressively getting weaker at this time. He states he cannot do the things he normally wants to do due to the pain. He states overall that he is ready for back surgery and is ready to get on the road to recovery. No new trauma or issues with the low back. No bowel or bladder isseues. No f/c/sob.cp at this time. The patients' past social, medical, family, surgical history, as well as review of systems, have been reviewed. Please refer to the Neurosurgery History and Physical form that has been scanned into our electronic medical record system. 16 points review of systems completed and as stated in HPI, all other systems reviewed are negative. 12/11/23:The patient returns to the office today for re-evaluation of low back pain. The patient reports a continued ache-like, burning pain around the left side of the low back that radiates down into the bilateral lower extremity, worse on the left compared to the right. He states his leg pain is associated with numbness and tingling. He notes progressive lower extremity weakness. He states his current symptoms worsen after prolonged standing, walking, or sitting. He notes his symptoms become most severe when going from a seated to standing position. He reports severe sleep disturbances related to his ongoing pain and associated symptoms. He has trialed all conservative treatment measures listed below with only mild, temporary relief. He is currently taking Motrin and Gabapentin for relief of his current symptoms. He was previously scheduled for surgical intervention in the form of an L4-S1 decompression and fusion but had to cancel due to three hernia surgeries. Otherwise, the patient denies any f/c/sob/cp, perineal numbness or tingling, bowel or bladder incontinence/retention. The patient is ambulatory independently. PREVIOUS TREATMENTS: PAST IMAGING: -YES TRAUMA RELATED: -NO WORK RELATED: -NO PT IN LAST 6 MONTHS: -YES; made symptoms worse PHYSICIAN DIRECTED HOME EXERCISE PROGRAM: -YES; made symptoms worse ACTIVITY MODIFICATION: -YES MEDICATIONS: -YES; Motrin & Gabapentin ALTERNATIVE INTERVENTIONS (CHIROPRACTIC, ACUPUNCTURE, MASSAGE, RICE): -YES; home heat/ice therapies & rest with mild, temporary relief BRACING: -NO INJECTIONS (NEYMAR, TF, RFA): -NO -OTHER: NA MEDICAL HISTORY: Past Medical History: REVIEWED STATED IN CHART Past Surgical History: REVIEWED STATED IN CHART Social History: REVIEWED STATED IN CHART Smoking/ Tobacco use: Quit Smoking (Quit 2.5 years ago) ETOH use: None Substance use: None Family History: REVIEWED STATED IN CHART Current Medications: REVIEWED STATED IN CHART See nursing list. Reviewed with pt. PHYSICAL EXAM: General: AOX3, NAD, Well hydrate, Well nourished HEENT: No lumps or masses Extremities: No color changes, no pooling INTEGUMENT: Appearance: Normal color and turgor Hairy Patches: ABSENT Dorsal Skin Dimples: Normal [employer] spots: ABSENT PALPATION: (TTP) Midline: NO Paracervical: NO Parathoracic: NO Paralumbar: YES SIJ TESTING: Tested -TTP YES BILATERAL -Fortins Finger: POSITIVE BILATERAL -FABER4: NEGATIVE RIGHT -Compression: NEGATIVE RIGHT -Distraction:NEGATIVE RIGHT -Thigh thrust: NEGATIVE RIGHT -Hip thrust:NEGATIVE RIGHT POSTURAL BALANCE: -Coronal: BALANCED -Sagittal: BALANCED -Shoulder height: LEVEL -Pelvic Girdle: LEVEL ROM AND APPEARANCE: Neck: UNRESTRICTED Lumbar: RESTRICTED WITH PAIN Shoulders: Symmetrical Hips: Symmetrical Knees: Symmetrical Hands: Symmetrical Feet: Symmetrical VASCULAR STATUS: RUE- 2 LUE-2 RLE-2 LLE-2 Edema: NONE NEUROLOGICAL EXAMINATION: Mental Status: Awake, alert, oriented fully with normal attention, concentration and memory. Fluent appropriate speech. CRANIAL NERVES: I: Olfactory not tested. II: Visual acuity normal, no visual field deficit noted with confrontation. III,IV: Normal pupillary reflexes & intact extraocular movements without nystagmus. V,: Intact symmetrical facial sensation. VII: Intact symmetrical facial motor movementVIII: Hearing intact. IX,X: Intact gag, swallow, & normal voice. XI: Sternocleidomastoid, trapezius function intact. XII: Tongue midline with normal movements. TENSIONING: L'HERMITTE'S SIGN: NEGATIVE SPURLING'S SIGN: NEGATIVE CUBITAL COMPRESSION: NEGATIVE TINEL'S AT WRIST: NEGATIVE SLR:POSITIVE BILATERAL CROSSED SLR: NEGATIVE MOTOR EXAM (0-5/5, NT) Muscle appearance: Symmetrical, without signs of atrophy or dystrophy UPPER EXTREMITY 5/5 STRENGTH IN ALL MAJOR MUSCLE GROUPS OF THE UE B/L LOWER EXTREMITY BLE SHOW 5/5 STRENGTH IN HF/KE WITH 4/5 STRENGTH IN KF/DF/PF/EHL AND FHL. THIS ALL CAUSES PAIN DUE TO TENSINOING SIGNS. REFLEXES (0-4/2, NT): 2/4 ALL UE AND LE EXCEPT FOR 1/4 IN S1 B/L PATHOLOGICAL REFLEXES: NEG HOFFMANS NEG BABINSKI NEG CLONUS Rectal Tone: INTACT SENSATION (0-4, NT): Intact to light touch and pain sensation to C5-T1 as well as L2-S2 except that noted below Hyperesthesia: ABSENT Dermatomal deficit: YES -Levels: L4-S1 BILATERAL GAIT AND FUNCTIONAL EVALUATION: -Ambulatory aids NO -Rombergs test NEGATIVE -Hand and finger dexterity intact bilaterally? YES -Dysdiadochokinesia examination negative bilaterally? YES -Toe heel walk / heel-toe walk intact while maintaining satisfactory balance? NO -Squatting/straightening w/o assistance to a min of 60 degree knee flexion? NO -Single leg stance: NOT ABLE -Trendelenburg sign NT IMAGING: XRAY Date: Dec 11, 2023 Region:Lumbar Location: ASC Views: AP/LAT FINDINGS: Images reviewed with patient in office Severe spondylosis from L4-S1 with Grade I spondylolisthesis L4-5, disc collapse, height loss, severe facet arthrosis along with foraminal stenosis at L4-5 and L5-S1. No fractures noted. Flattened LL secondary to this. No acute fractures noted. Osteophytosis as well as stenosis related to the patients spondylosis, collapse and severe DDD changes. No lesions. IMPRESSION: It was my pleasure to have seen and examined Jf. I reviewed the patient's clinical syndrome, physical findings, and imaging studies during the appointment today. It is my impression that the patient has a diagnosis of. L4-S1 spondylosis and stenosis Bilateral lower extremity radiculopathy Bilateral lower extremity weakness Low back pain PLAN: DISCUSSION: I have discussed both operative versus non-operative treatment options with the patient in detail. I have recommended surgical intervention in the form of a L4- S1 decompression and fusion secondary to the patients symptomatic L4-S1 spondylosis and stenosis and progressive bilateral leg weakness and radiculopathy. The patient verbally understands all risks, benefits, and alternatives to the procedure and elects to proceed. He will obtain all necessary preoperative tests and clearances prior to his scheduled surgery date. SURGICAL RECOMMENDATION: L4-S1 POSTEROLATERAL AND INTERBODY FUSION WITH DECOMPRESSION THERAPIES: Cont with home exercises as able Cont with Heat/Ice as warranted Cont with supplementation Vit D, Vit C, Ca2+, High protein diet OK for massage or other alternative treatment modalities as possible. If it exacerbates your sx do not continue ACTIVITY Advance as tolerated Avoid excessive or heavy BLPPT Recommend walking up to 30 min 2x daily on a flat, easy surface with good support. MEDICATIONS New Script given for the following: Flexeril 10 mg Take as directed Cont home medications as directed by your PCP. Check with your PCP for any medication interactions or issues if needed. IMAGING I have ordered an URGENT MRI of the lumbar spine without contrast to further elucidate the pathology of the patients current symptoms I have ordered a CT scan of the lumbar spine without contrast for preoperative/surgical planning INJECTIONS None at this time Spine Surgery Clinical and Risk Review Mr. Bautista is a 43 year old male presenting for evaluation of low back and bilateral lower extremity pain, bilateral lower extremity numbness, tingling, and weakness.. It was my pleasure to have seen and examined Jf. In our visit today we have had a chance to go over subjective complaints, physical examination findings and treatments including the natural course history without intervention and various interventional options. The patients imaging demonstrates the following findings: Previous x-rays and MRI of the lumbar spine reviewed with the patient in office today. On a physical exam, Mr. Bautista demonstrates the following findings: A continued ache-like, burning pain around the left side of the low back that radiates down into the bilateral lower extremity, worse on the left compared to the right. He states his leg pain is associated with numbness and tingling. He notes progressive lower extremity weakness. He states his current symptoms worsen after prolonged standing, walking, or sitting. He notes his symptoms become most severe when going from a seated to standing position. He reports severe sleep disturbances related to his ongoing pain and associated symptoms. I have explained to the patient that as their condition progresses it will cause further neurological deficits and eventual paralysis. Based on the patients imaging, physical exam, and the rapid progression and disabling nature of their symptoms, at this time I recommend surgery in the form of a:L4-S1 POSTEROLATERAL AND INTERBODY FUSION WITH DECOMPRESSION I discussed the risk and benefits of this procedure at length with Jf. The patient agreed to consider pursuing the procedure above mentioned. Prior to surgery, they should follow up with her PCP (Cardio, ID, IM etc) for clearance. Questions were invited and answered, and the patient wishes to proceed as outlined below. Currently, I am recommending: * L4-S1 POSTEROLATERAL AND INTERBODY FUSION WITH DECOMPRESSION * Obtain appropriate presurgical workup and clearances as discussed with the patient. * Review of surgical risks and benefits as well as an educational packet on the proposed surgical procedure. Risks: All surgical procedures come with inherent risks, including those related to positioning, anesthesia, intraoperative findings, and postoperative complications. It is important to understand that surgery does not come with any guarantee of a successful outcome as complications and adverse events are always possible. The patient was given a handout in the office today discussing the surgical procedure and risks associated with the intervention, both of which were discussed with the patient. These risks include but are not limited to the following: Experiencing same, different or even worse symptoms in back, neck, arms, or legs compared to before surgery. Requiring further surgery or other forms of treatment presently or at some time in the future at same or other levels of the intended spine surgery. On an extreme but fortunately relatively rare basis severe complications such as blindness, stroke, heart attack, temporary and/or permanent nerve injury, paralysis, coma, or may occur, sometimes without known explanation. Surgical complications may include but are not limited to risk of infection, fluid accumulation in the surgical dissection site, including a seroma or hematoma, that requires additional surgery, wound drainage, bleeding, new numbness or weakness, vision changes/loss, spinal fluid leakage, non-healing and/or infected incision, headaches, difficulty or inability to swallow, hoarseness, hemopneumothorax, pneumothorax, impotence, retrograde ejaculation, vaginal dryness; injury to nerves, spinal cord, blood vessels, lymphatics or other vital organs (i.e., bowel injury, injury to the great vessels); heterotopic bone formation; complications related to the hardware such as screws, rods, cages including misplaced hardware, device failure, instrumentation at the wrong spine level, hardware fracture/breakage, or hardware loosening; vertebral failure of the spinal column above or below the newly placed hardware; retained surgical instrumentations or devices and the need for further surgery. Medical risks of the planned spine surgery include but are not limited to generalized Infections to the whole body or local areas outside of the surgical site (sepsis), heart attack, bleeding, anaphylaxis, meningitis, seizure, epilepsy, hearing loss, burn parsons, laceration of the head or other areas of the body, bruising, hypersensitivity of the skin, bladder over distension; allergic reaction; shoulder injury related to positioning; fat, blood and air clots to other areas of the body like heart, lungs, brain; failure of internal organs such as lungs, kidneys, liver and excessive bleeding. If blood transfusions are necessary, note that transfusions may cause intolerance reactions such as anaphylaxis or other complex reactions. Despite best efforts, the results of spine surgery might not heal in terms of bone, soft tissues such as skin, fascia, ligaments, and joints. Additionally, in order to achieve best possible results, spine surgery may be carried out beyond the initially planned levels and involve decompression, fusion including insertion of hardware at levels other than the original intended area of surgical interest change some portions of the procedure in order to ensure the best possible outcomes. With spine surgery and spinal fusion, there are different off label uses of instrumentation (devices, implants and hardware) as well as biological substances (bone morphogenic proteins, demineralized bone matrix) as well as using extra bone from allograft sources (i.e. cadaver bone) or autograft (iliac crest bone, ribs, or the spine itself). The patient has been given information about these practices and their inherent risks and benefits. The patient has had a chance to review all the listed information, has been given print outs detailing this information, and has had all his/her questions answered to their satisfaction. It was my pleasure to have seen and examined Jf. In our visit today we have had a chance to go over my understanding of our patient's current condition, the natural course history without intervention and various interventional options. Questions were invited and answered, and the patient wishes to proceed as outlined above. I have seen and examined the patient for 25 minutes and we have spent more than 50% of the time in repeat and detailed counseling about the patient's condition, its natural course history without and as much as can be predicted with surgery and re-review of various surgical treatment options. In conclusion, Jf requested we proceed with the above suggested surgery and are willing to accept risks and limitations of the suggested surgery as the nature of the disease process and our best attempts at treatment for the condition. Thank you again for allowing us to be part of your patient's care. Please don't hesitate to contact me if you have any further questions. FOLLOW UP: POST OP PLAN AT NEXT VISIT: RECHECK PATIENT EDUCATION: Medications Reviewed: YES In our visit today the patient and I have had a chance to go over my understanding of their current condition, the natural course history without intervention and various interventional options. Questions were invited and answered, and the patient wishes to proceed as outlined above. I will be sure to keep you updated after the patient returns here for further follow-up. Thank you again for your referral. Please do not hesitate to contact me if you have any further questions. Signed and authenticated by: DO Jonathon Baron [facility] [address] [place] [address] This document is confidential, intended only for the named recipient(s) and may contain information that is privileged or exempt from disclosure under applicable law. If you are not the intended recipient(s), you are notified that the dissemination, distribution or copying of this information is strictly prohibited. If you received this message in error, please notify the sender then delete this message. # SIGNED BY Ronak Castillo (GOO)05/03/2024 07:12AM Past Medical History Past Medical History: Atrial Fibrillation Additional Past Medical History / Comment(s): PAST HX AFIB 8 YRS AGO-WAS CARDIOVERTED-NO PROBLEMS SINCE. Herniated disc, started 15 yrs ago. Hx migraines, none in a long time. History of Any Multi-Drug Resistant Organisms: None Reported Past Surgical History: Appendectomy, Hernia Repair, Tonsillectomy Additional Past Surgical History / Comment(s): CARDIOVERSION, HERNIA REPAIR, TRIPLE HERNIA REPAIR. Past Anesthesia/Blood Transfusion Reactions: No Reported Reaction Additional Past Anesthesia/Blood Transfusion Reaction / Comment(s): "Resistent to pain medications, heavy Marijuana user". Smoking Status: Former smoker - Past Family History Mother Family Medical History: No Reported History Medications and Allergies Home Medications Medication Instructions Recorded Confirmed Type cloNIDine HCL [Catapres] 0.1 - 0.2 mg PO HS 03/24/23 05/01/24 History FLUoxetine HCL [PROzac] 20 mg PO QAM 05/01/24 05/01/24 History Gabapentin 300 mg PO TID 05/01/24 05/01/24 History Gabapentin 600 mg PO HS 05/01/24 05/01/24 History Greens Supplement 1 dose PO DAILY 05/01/24 05/01/24 History Multivitamins, Thera [Multivitamin 1 tab PO DAILY 05/01/24 05/01/24 History (formulary)] Allergies Allergy/AdvReac Type Severity Reaction Status Date / Time piperacillin [From Zosyn] Allergy Intermediate Rash/Hives Verified 04/30/24 16:04 tazobactam [From Zosyn] Allergy Intermediate Rash/Hives Verified 04/30/24 16:04 Physical Examination Osteopathic Statement: *. No significant issues noted on an osteopathic structural exam other than those noted in the History and Physical/Consult.
[~2024-05-06 05:34] MED LIST changes: -ACETAMINOPHEN TAB 500 MG TAB PO PRN; -DEXAMETHASONE SOD PHOSPHATE 4 MG/ML 1 ML VIAL IV ONE; -HEPARIN SODIUM,PORCINE/PF 5,000 UNIT/0.5 ML SYRINGE SQ PRN; -HYDROmorphone 0.5 MG/0.5 ML SYRINGE IVP PRN; -LACTATED RINGERS 1,000 ML IV SCH; -LIDOCAINE 1% (10MG/ML) FOR IV START INTRADERMA PRN; -MIDAZOLAM 2 MG/2 ML VIAL IV PRN; -ONDANSETRON 4 MG/2 ML VIAL IVP ONE; +TRANEXAMIC 1,000 MG/100ML-NACL 1,000 MG in SALINE 1 100ML.BAG IVPB PRN
[2024-05-06] MEDS ORDERED: LIDOCAINE 1% (10MG/ML) FOR IV START INTRADERMA PRN (06:15)
[2024-05-06] MEDS: IV FLUID CONTINUATION 1,000 ML IV ONE ×2 (06:20→06:25)
[2024-05-06 06:43] LABS: Glucose,Whole Blood 92 mg/dL (70-110)
[2024-05-06] MEDS: ONDANSETRON 4 MG/2 ML VIAL IVP PRN (06:51)
[2024-05-06] MEDS: GABAPENTIN 300 MG CAP PO PRN (06:52)
[2024-05-06] MEDS: ACETAMINOPHEN TAB 500 MG TAB PO PRN (06:52)
[2024-05-06] MEDS: LACTATED RINGERS 1,000 ML IV SCH (06:52)
[2024-05-06] MEDS: MIDAZOLAM 2 MG/2 ML VIAL IV ONE (06:53)
[2024-05-06] MEDS ORDERED: HYDROmorphone (PF) 1 MG/ML ONE (07:30)
[2024-05-06] MEDS ORDERED: TRANEXAMIC 1,000 MG/100ML-NACL PREMIX BAG ONE (07:30)
[2024-05-06] MEDS ORDERED: ROCURONIUM 10 MG/ML (5 ML VIAL) IV ONE (07:30)
[2024-05-06] MEDS ORDERED: NEOSTIGMINE 1 MG/ML 10 ML VIAL ONE (07:30)
[2024-05-06] MEDS ORDERED: ePHEDrine 50 MG/ML 1 ML VIAL ONE (07:30)
[2024-05-06] MEDS ORDERED: GLYCOPYRROLATE 0.2 MG/ML 2 ML VIAL ONE (07:30)
[2024-05-06] MEDS ORDERED: SUCCINYLCHOLINE CHLORIDE 200 MG/10 ML VIAL IV ONE (07:30)
[2024-05-06] MEDS ORDERED: MIDAZOLAM 2 MG/2 ML VIAL ONE (07:30)
[2024-05-06] MEDS ORDERED: KETAMINE HCL IN 0.9 % NACL 50 MG/5 ML SYRINGE ONE (07:30)
[2024-05-06] MEDS ORDERED: LIDOCAINE 1% INJ 10MG/ML (20 ML MDV) ONE (07:30)
[2024-05-06] MEDS ORDERED: fentaNYL (PF) 50 MCG/ML 2 ML AMP ONE (07:30)
[2024-05-06] MEDS ORDERED: ALBUMIN HUMAN 5% (25gm) 500 ML VIAL IVPB ONE (07:30)
[2024-05-06] MEDS ORDERED: PROPOFOL 10 MG/ML 20 ML VIAL IV ONE (07:30)
[2024-05-06] MEDS: ceFAZolin 3 GM in SODIUM CHLORIDE 0.9% 100 ML IVPB PRN (07:34)
[2024-05-06] MEDS: ceFAZolin 3,000 MG in SODIUM CHLORIDE 0.9% IRRIGATIO 3,000 ML IRRIGATION ONE (08:04)
[2024-05-06] MEDS: THROMBIN (BOVINE) 5,000 UNIT VIAL TOPICAL ONE (08:04)
[2024-05-06] MEDS: GENTAMICIN 80 MG in SODIUM CHLORIDE 0.9% IRRIGATIO 3,000 ML IRRIGATION ONE (08:04)
[2024-05-06] MEDS: LACTATED RINGERS 1,000 ML IV ONE (09:24)
[2024-05-06] MEDS: VANCOMYCIN 1,000 MG VIAL MISCELLANE ONE (10:34)
[2024-05-06] MEDS ORDERED: MAGNESIUM HYDROXIDE 2,400 MG/30 ML CUP PO PRN (10:50)
[2024-05-06] MEDS ORDERED: HYDROmorphone 0.5 MG/0.5 ML SYRINGE IVP PRN (10:50)
[2024-05-06] MEDS ORDERED: ONDANSETRON 4 MG/2 ML VIAL IVP PRN (10:50)
[2024-05-06] MEDS ORDERED: SENNOSIDES-DOCUSATE SODIUM 1 EACH TAB PO PRN (10:50)
--- NOTE | 2024-05-06 11:16 | FL ---
EXAMINATION TYPE: FL guidance operating room, XR lumbar spine 2 or 3V DATE OF EXAM: 05/06/2024 11:04 AM COMPARISON: Pre Operative Images if available both CT/MRI or plain film CLINICAL INDICATION: Male, 44 years old with history of L4-S1 Fusion; TECHNIQUE: FL guidance operating room, XR lumbar spine 2 or 3V, multiple fluoroscopic images provided for procedure. Total fluoroscopy time: 40 seconds Total submitted images to PACS: 4 DAP: 719 mGym2 Gycm2 uGym2 cGycm2 or equivalent. FINDINGS: Fluoroscopic images during internal fixation/arthroplasty demonstrate hardware in appropriate positio n. Hardware appears intact. No immediate complication identified. IMPRESSION: 1. No evidence for intraoperative complication. 2. Please see the operative/procedural note for further details. [facility], , 05/06/2024 11:13 AM
[2024-05-06] MEDS: HYDROmorphone 0.5 MG/0.5 ML SYRINGE IVP PRN (11:21)
[2024-05-06] MEDS: MEPERIDINE 25 MG/ML SYRINGE IVP STA (12:03)
--- NOTE | 2024-05-06 14:02 | P.OP ---
Date of Procedure: 05/06/24 Preoperative Diagnosis: L4-S1 spondylosis and stenosis Bilateral lower extremity radiculopathy Bilateral lower extremity weakness Low back pain Postoperative Diagnosis: L4-S1 spondylosis and stenosis Bilateral lower extremity radiculopathy Bilateral lower extremity weakness Low back pain Procedure(s) Performed: 1. L4-5 INTRADISCAL OSTEOTOMY, 3 COLUMN FOR DEFORMITY CORRECTION 2. L5-S1 INTRADISCAL OSTEOTOMY, 3 COLUMN FOR DEFORMITY CORRECTION 3. L4-5 POSTEROLATERAL AND INTERBODY FUSION 4. L5-S1 POSTEROLATERAL AND INTERBODY FUSION 5. L4-S1 POSTEROLATERAL SEGMENTAL INSTRUMENTATION 6. L4-5, L5-S1 BILATERAL LAMINECTOMY, COMPLETE FACETECTOMY AND FORAMINOTOMY FOR DEFORMITY CORRECTION, COMPLETE NEURAL DECOMPRESSION AND CAGE PLACEMENT 7. INSERTION OF BIOMECHANICAL DEVICES, CAGES X2 L4-5, L5-S1 8. USE OF [employer] NAVIGATION FOR THE ASSISTANCE IN SCREW PLACEMENT USE OF IONM ALL SCREWS TESTING > 16 mA Implants: -ASHIA EVEREST RODS AND SCREWS -GLOBUS SABLE CAGES X2, LONG, 7-14, 15 DEG -MAGNATOS, CONTOUR, ALLOCELL, ARTHROCELL, AUTOGRAFT, DBM Anesthesia: GETA Surgeon: Ronak Castillo Assistant Professor In Family Studies #1: Henrry Redding (WAS PRESENT AND ASSISTED WITH ALL ASPECTS OF THE CASE FROM POSITION TO DRESSING PLACEMENT) Estimated Blood Loss (ml): 350 IV fluids (ml): 1,500 Urine output (ml): 300 Pathology: none sent Condition: stable Disposition: PACU Indications for Procedure: Spine Surgery Clinical and Risk Review Mr. Bautista is a 43 year old male presenting for evaluation of low back and bilateral lower extremity pain, bilateral lower extremity numbness, tingling, and weakness.. It was my pleasure to have seen and examined Jf. In our visit today we have had a chance to go over subjective complaints, physical examination findings and treatments including the natural course history without intervention and various interventional options. The patients imaging demonstrates the following findings: Previous x-rays and MRI of the lumbar spine reviewed with the patient in office today. On a physical exam, Mr. Bautista demonstrates the following findings: A continued ache-like, burning pain around the left side of the low back that radiates down into the bilateral lower extremity, worse on the left compared to the right. He states his leg pain is associated with numbness and tingling. He notes progressive lower extremity weakness. He states his current symptoms worsen after prolonged standing, walking, or sitting. He notes his symptoms become most severe when going from a seated to standing position. He reports severe sleep disturbances related to his ongoing pain and associated symptoms. I have explained to the patient that as their condition progresses it will cause further neurological deficits and eventual paralysis. Based on the patients imaging, physical exam, and the rapid progression and disabling nature of their symptoms, at this time I recommend surgery in the form of a:L4-S1 POSTEROLATERAL AND INTERBODY FUSION WITH DECOMPRESSION I discussed the risk and benefits of this procedure at length with Jf. The patient agreed to consider pursuing the procedure above mentioned. Prior to surgery, they should follow up with her PCP (Cardio, ID, IM etc) for clearance. Questions were invited and answered, and the patient wishes to proceed as outlined below. Currently, I am recommending: * L4-S1 POSTEROLATERAL AND INTERBODY FUSION WITH DECOMPRESSION Description of Procedure: L4-S1 open Decompression and fusion The patient was seen and examined in the preoperative area. All preoperative protocols were followed. Informed consent was obtained, risks and benefits of the procedure were discussed at length. Risks including bleeding infection damage to the surrounding tissue and risk of reoperation were discussed with the patient. Risk of anesthesia up to and including was discussed with the patient. These are outlined in the risk review. They were willing to accept these risks and all the risks of surgery. The patient was given a weight-based dose of antibiotics in the form of 2 g Ancef. The patient was seen and evaluated by the anesthesia team who deemed them fit for surgery. The site was marked, the patient was willing to proceed with the procedure. The patient was transferred to the operative suite by the Department of anesthesia. They were then drifted off to sleep by the department anesthesia and GETA was performed. The patient tolerated this well. Gallagher catheter was placed by nursing staff, a-traumatically. Once confirmation of lines and ventilation the patient was transferred to a prone Cong table very carefully. All bony prominences including wrists, elbows, axilla, chest, hips, and thighs, and feet were padded very well. Special attention was paid to the genitalia, and these were padded accordingly. SCDs were placed on bilateral lower extremities and were connected. Arms were well padded and placed on arm boards up and out in the 90/90 position. Once in position, again we confirmed good ventilation capabilities and that lines were running appropriately. [facility] Lumbar spine was then exposed. 1010s were placed outlining the incision site. Standard alcohol was used to clean the incision site and allowed to dry. C-arm was used to needle localize the pedicles at L4-S1 and bio-corinne the patient and confirm level for incision which was marked with a skin marker. Operative briefing was performed with all teams and everyone in agreement to proceed. The patient was then prepped and draped in a normal sterile fashion. Timeout was then performed, and all parties agreed with the procedure to be performed. Midline skin incision was made over the previously bio-marked area and dissection taken down over the SP of L3-S1. L4-S1 was taken out over facet joints and TPs and a penfield 4 used to corinne the L4 pedicle. Lateral image used to confirm levels. Once confirmed, screws were proceeded to be placed b/l at pedicles from L4-S1 using [employer] ([place]) Navigation. An SP clamp was used, 3D C arm spin obtained and confirmed to be accurate. Once this was confirmed screws were placed using a navigated cherelle, navigated awl-tap and navigated lunch truck driver. Once screws were placed they were confirmed to be in good position using AP and Lateral fluoroscopy. The wound was then irrigated. Screws were tested and all tested above 16 mA. We then proceeded to decompression and cage placement. Attention was then turned to interbody fusion at L5-S1 and osteotomy for deformi ty correction. There was exuberant scar and osteophyte formation, deformity cystic formation around the neural elements. Bilateral laminectomy, complete facetectomy and foraminotomy performed at L5-S1 using high speed cherelle and Kerrison rongeur. The ligamentum was removed and the dural sac decompressed. Exiting and traversing roots visualized and decompressed. Neural elements were then protected, and disc space accessed with an osteotome. Intradiscal, 3 column osteotomy, was performed under fluoroscopic guidance using an osteotome to remove the entire disc. Sequential shaving then done under lateral imaging and complete discectomy performed using chana, pituitary and curette. Once good bleeding endplates accomplished and good height christian with trials, a combination of autograft, allograft and synthetic placed anterior in the disc space. The cage was then selected and impacted into place under lateral imaging. The cage was then expanded restoring height, lordosis and alignment. The cage was backfilled with bone graft through a funnel. The backroom associate was removed and the area inspected. Good cage placement, stable cage and no injuries. Area was irrigated copiously, and meticulous hemostasis achieved. wOUND WAS IRRIGATED AND WE PROCEEDED TO l4-5. Attention was then turned to interbody fusion at L4-5. Bilateral laminectomy, complete facetectomy and foraminotomy performed at L4-5 using high speed cherelle and Kerrison rongeur. The ligamentum was removed and the dural sac decompressed. Exiting and traversing roots visualized and decompressed. Neural elements were then protected, and disc space accessed with an osteotome. Intradiscal, 3 column osteotomy, was performed under fluoroscopic guidance using an osteotome to remove the entire disc. Sequential shaving then done under lateral imaging and complete discectomy performed using chana, pituitary and curette. Once good bleeding endplates accomplished and good height christian with trials, a combination of autograft, allograft and synthetic placed anterior in the disc space. The cage was then selected and impacted into place under lateral imaging. The cage was then expanded restoring height, lordosis and alignment. The cage was backfilled with bone graft through a funnel. The backroom associate was removed and the area inspected. Good cage placement, stable cage and no injuries. Area was irrigated copiously, and meticulous hemostasis achieved. We then proceeded to adore placement. Irricept was washed through wound as well as NSS. Rods were then sized and selected and placed into S1 screws b/l. Set screws locked these in place and then sequentially reduced into L4 and L5 b/l for alignment christian. This was accomplished. Set screws were then all placed and finally tightened. TPs were then decorticated with a high speed cheerlle. The wound was irrigated with 3L Ancef irrigation, 3L gentamicin irrigation and 3L NSS. Surgicel was placed over the dura. Autograft and MagnatOs then placed in the posterolateral gutters and impacted into place. Deep drain placed and secured to the skin. Final images confirmed good placement of hardware and good reduction of listhesis as well as christian of height and lordosis. Fascia was then closed with #1 PDS. Deep subq closed with 0 Vicryl. Superficial subq closed with 2-0 Vicryl and skin with caroline. Wound edges approximated very well. Wound was then cleaned with alcohol and dried. Wounds dressed with Optifoam dressings. The patient was then transferred off the table back to their hospital bed a- traumatically. They were extubated by the department of anesthesia. They were then transferred to PACU in stable condition having tolerated the procedure with no complications.
[2024-05-06] MEDS: HYDROcodone/APAP 10-325MG 1 EACH TAB PO PRN (14:30)
[2024-05-06] MEDS: HYDROmorphone 1 MG/ML 1 ML SYRINGE IVP PRN (14:59)
[2024-05-06] MEDS: ACETAMINOPHEN TAB 325 MG TAB PO SCH (15:39)
[2024-05-06] MEDS: droPERidol 5 MG/2 ML VIAL IVP ONE (15:39)
[2024-05-06] MEDS: GABAPENTIN 300 MG CAP PO SCH ×2 (16:02→21:04)
[2024-05-06] MEDS: ceFAZolin 3 GM in SODIUM CHLORIDE 0.9% 100 ML IVPB SCH (16:02)
--- NOTE | 2024-05-06 16:16 | P.CONS ---
History of Present Illness - Reason for Consult Consult date: 05/06/24 - History of Present Illness Patient is a 44-year-old male with history of chronic low back pain with radiculopathy, depression/anxiety presenting for elective L4-S1 decompression and fusion. [facility] physicians consulted for medical management. Currently temperature is 97.5, pulse 92, respiratory rate 16, blood pressure 141/86, saturating 100% on room air. POC glucose was 92. Patient denies any chest pain, shortness of breath, abdominal pain, nausea, vomiting. Has a Gallagher catheter in place. Patient denies any alcohol use, smoking, or illicit drug use. Pertinent positives and negatives as discussed in HPI, a complete review of systems was performed and all other systems are negative. Patient seen and examined at bedside. Vital signs reviewed General: nontoxic, no distress, appears at stated age, Gallagher catheter in place Derm: warm, dry, back dressing not observed, drain in place Head: atraumatic, normocephalic, symmetric Eyes: EOMI, no lid lag, anicteric sclera, pupils equal round reactive to light ENT: Nose and ears atraumatic Neck: No thyromegaly, supple Mouth: no lip lesion, mucus membranes moist Cardiovascular: S1S2 reg, no murmur, no edema Lungs: clear to auscultation bilateral, no rhonchi, no rales, no wheeze, no accessory muscle use Abdominal: soft, nontender to palpation, no guarding, no appreciable organomegaly Ext: no gross muscle atrophy, muscle strength muscle strength 5 out of 5 in all 4 extremities, no contractures Neuro: CN II-XII grossly intact Psych: Alert, oriented, appropriate affect Assessment/Plan: Active: Status post L4-S1 decompression and fusion -Pain control with scheduled oral Tylenol 650 every 6 hours, Flexeril as needed, gabapentin 300 mg 3 times daily, oral [place] as needed, IV Dilaudid as needed, monitor for sedation -Bowel regimen and DVT prophylaxis per orthospine surgery -PT/OT -CBC and BMP tomorrow Depression/anxiety -Continue clonidine 0.1 nightly, Prozac 20 mg daily Thank you for allowing us to participate in the care of this pleasant patient. Do not hesitate to contact us with questions. Someone can be reached from the [facility] [place] hospitalist group all hours of the day at [phone] or via perfect serve. Past Medical History Past Medical History: Atrial Fibrillation Additional Past Medical History / Comment(s): PAST HX AFIB 8 YRS AGO-WAS CARDIOVERTED-NO PROBLEMS SINCE. Herniated disc, started 15 yrs ago. Hx migraines, none in a long time. History of Any Multi-Drug Resistant Organisms: None Reported Past Surgical History: Appendectomy, Hernia Repair, Tonsillectomy Additional Past Surgical History / Comment(s): CARDIOVERSION, HERNIA REPAIR, TRIPLE HERNIA REPAIR. Past Anesthesia/Blood Transfusion Reactions: No Reported Reaction Additional Past Anesthesia/Blood Transfusion Reaction / Comm: "Resistent to pain medications, heavy Marijuana user". Smoking Status: Former smoker - Past Family History Mother Family Medical History: No Reported History Medications and Allergies Home Medications Medication Instructions Recorded Confirmed Type cloNIDine HCL [Catapres] 0.1 - 0.2 mg PO HS 03/24/23 05/06/24 History FLUoxetine HCL [PROzac] 20 mg PO QAM 05/01/24 05/06/24 History Gabapentin 300 mg PO TID 05/01/24 05/06/24 History Gabapentin 600 mg PO HS 05/01/24 05/06/24 History Greens Supplement 1 dose PO DAILY 05/01/24 05/06/24 History Multivitamins, Thera [Multivitamin 1 tab PO DAILY 05/01/24 05/06/24 History (formulary)] Allergies Allergy/AdvReac Type Severity Reaction Status Date / Time piperacillin [From Zosyn] Allergy Intermediate Rash/Hives Verified 05/06/24 07:00 tazobactam [From Zosyn] Allergy Intermediate Rash/Hives Verified 05/06/24 07:00 Physical Exam Vitals: Vital Signs Temp Pulse Pulse Resp BP Pulse Ox 05/06/24 15:25 97.5 F L 92 16 141/86 100 05/06/24 14:31 88 16 134/83 98 05/06/24 13:46 87 16 155/86 100 05/06/24 13:30 89 18 130/72 100 05/06/24 13:28 81 16 120/67 100 05/06/24 13:00 82 16 118/77 99 05/06/24 12:45 79 85 16 124/58 99 05/06/24 12:30 98 16 137/78 98 05/06/24 12:02 87 16 121/61 97 01/13/25 11:46 84 16 105/54 97 05/06/24 11:34 87 16 97/66 100 05/06/24 11:32 80 16 126/76 95 05/06/24 11:25 72 16 126/73 98 05/06/24 11:15 97 F L 97 16 156/76 100 05/06/24 06:25 97.5 F L 72 16 142/72 100 Intake and Output 05/06/24 05/06/24 05/06/24 06:59 14:59 22:59 Intake Total 200 2302 Output Total 1265 Balance 200 1037 Intake: IV 200 2302 Output: Urine 850 Estimated Blood Loss 415 Other: Weight 123.38 kg
--- NOTE | 2024-05-06 17:16 | CT ---
EXAMINATION TYPE: CT lumbar spine wo con DATE OF EXAM: 05/06/2024 4:58 PM COMPARISON: 12/18/2023. CLINICAL INDICATION: Male, 44 years old with history of s/p L4-S1 decompression fusion; [facility], s/p L4-S 1 decompression fusion TECHNIQUE: Multiple axial images were obtained from the midportion of T11 through the sacroiliac tala nts. Soft tissue and bone windows in coronal and sagittal planes were obtained and reviewed. Contrast used: mL of , (None, if empty). Oral contrast used: (None, if empty). CT DLP: 1971.6 mGycm, Automated exposure control for dose reduction was used. FINDINGS: Postsurgical changes to the lumbar spine with fixation hardware at L4, L5 and S1. Discectomy at L4-L5 and L5-S1. Hardware limits evaluation at these levels. Hardware appears intact. No evidence of fract ure. Postsurgical changes in the soft tissues with foci of gas present. Drainage catheter with tubing in t he surgical bed. Posterior back skin caroline are present. Degeneration changes of the spine worse at the inferior endplate and adjoining endplate of L3 with ad joining endplate superiorly L4. IMPRESSION: Postsurgical changes without evidence of immediate post operative complication. [facility], , 05/06/2024 5:14 PM
[2024-05-06] MEDS: HYDROcodone/APAP 5-325MG 1 EACH TAB PO PRN (19:46)
[2024-05-06] MEDS: CYCLOBENZAPRINE 5 MG TAB PO PRN (19:46)
[2024-05-06] MEDS ORDERED: cloNIDine HCL 0.1 MG TAB PO SCH (21:00)
[2024-05-06] MEDS: cloNIDine HCL 0.2 MG TAB PO SCH (21:04)
[2024-05-07] MEDS: FLUoxetine HCL 20 MG CAP PO SCH (08:21)
[2024-05-07 09:22] LABS: BUN/Creat Ratio 10.89 Ratio (12.00-20.00); Blood Urea Nitrogen 9.8 mg/dL (9.0-27.0); Calcium 8.4 mg/dL (8.7-10.3); Carbon Dioxide 23.3 mmol/L (21.6-31.8); Chloride 103 mmol/L (96-109); Glucose 107 mg/dL (70-110); Potassium 4.2 mmol/L (3.5-5.5); Sodium 139 mmol/L (135-145)
[2024-05-07 10:20] LABS: Basophils # (A) 0.03 X 10*3/uL (0.00-0.10); Basophils % (A) 0.2 %; Eosinophils # (A) 0.01 X 10*3/uL (0.04-0.35); Eosinophils % (A) 0.1 %; HCT 35.6 % (39.6-50.0); HGB 11.9 g/dL (13.0-17.0); Lymphocytes # (A) 1.67 X 10*3/uL (0.90-5.00); Lymphocytes % (A) 13.7 %; MCH 30.6 pg (27.0-32.0); MCHC 33.4 g/dL (32.0-37.0); MCV 91.5 FL (80.0-97.0); Mean Platelet Volume 10.3 FL (9.5-12.2); Monocytes % (A) 8.2 %; NRBC Per 100 WBC 0 X 10*3/uL (0.00-0.01); Neutrophils # (A) 9.46 X 10*3/uL (1.80-7.70); Neutrophils % (A) 77.6 %; Platelet Count 194 X 10*3/uL (140-440); RBC 3.89 X 10*6/uL (4.40-5.60); RDW 11.7 % (11.5-14.5)
--- NOTE | 2024-05-07 12:13 | P.PN ---
Subjective Progress Note Date: 05/07/24 Patient is a 44-year-old male with history of chronic low back pain with radiculopathy, depression/anxiety presenting for elective L4-S1 decompression and fusion. [facility] physicians consulted for medical management. Currently temperature is 97.5, pulse 92, respiratory rate 16, blood pressure 141/86, saturating 100% on room air. POC glucose was 92. Patient denies any chest pain, shortness of breath, abdominal pain, nausea, vomiting. Has a Gallagher catheter in place. Patient denies any alcohol use, smoking, or illicit drug use. Pertinent positives and negatives as discussed in HPI, a complete review of systems was performed and all other systems are negative. CT lumbar spine independently interpreted, postsurgical changes without evidence of immediate postoperative complication. Patient seen and examined at bedside. 03/07/2025 Patient seen and examined at sitting up at bed. No acute events overnight. Continues to have pain at surgical site. Today patient was only able to ambulate to chair which caused intense pain. Continue with pain management per primary team. Vital signs reviewed General: nontoxic, no distress, appears at stated age, Gallagher catheter in place Derm: warm, dry, back dressing not observed, drain in place Head: atraumatic, normocephalic, symmetric Eyes: EOMI, no lid lag, anicteric sclera, pupils equal round reactive to light ENT: Nose and ears atraumatic Neck: No thyromegaly, supple Mouth: no lip lesion, mucus membranes moist Cardiovascular: S1S2 reg, no murmur, no edema Lungs: clear to auscultation bilateral, no rhonchi, no rales, no wheeze, no accessory muscle use Abdominal: soft, nontender to palpation, no guarding, no appreciable organomegaly Ext: no gross muscle atrophy, muscle strength muscle strength 5 out of 5 in all 4 extremities, no contractures Neuro: CN II-XII grossly intact Psych: Alert, oriented, appropriate affect Assessment/Plan: Active: Status post L4-S1 decompression and fusion Leukocytosis, anticipated outcome of surgery Mild normocytic anemia, anticipated outcome of surgery -Pain control with scheduled oral Tylenol 650 every 6 hours, Flexeril as needed, gabapentin 300 mg 3 times daily, oral [place] as needed, IV Dilaudid as needed, monitor for sedation -Bowel regimen and DVT prophylaxis per orthospine surgery -PT/OT -CBC and BMP tomorrow Depression/anxiety -Continue clonidine 0.1 nightly, Prozac 20 mg daily Thank you for allowing us to participate in the care of this pleasant patient. Do not hesitate to contact us with questions. Someone can be reached from the [facility] hospitalist group all hours of the day at [phone] or via perfect serve. I have seen and evaluated the patient today. Discussed with the resident and agree with the residents finding and plan as documented in the resident's note. Changes highlighted in blue font. Objective - Vital Signs Vital signs: Vital Signs Temp 98.2 F 05/07/24 06:54 Pulse 83 05/07/24 06:54 Resp 15 05/07/24 06:54 BP 109/68 05/07/24 06:54 Pulse Ox 94 L 05/07/24 06:54 FiO2 Intake & Output 05/06/24 05/07/24 05/07/24 18:59 06:59 18:59 Intake Total 2552 Output Total 2865 4020 Balance -313 -4020 Weight 123.38 kg 123.38 kg Intake: IV 2302 Oral 250 Output: Drainage 195 Right Anterior Back 195 Urine 2450 3825 Estimated Blood Loss 415 Other: Voiding Method Indwelling Catheter - Labs CBC & Chem 7: 05/07/24 03:39 05/07/24 03:39
[2024-05-07] MEDS ORDERED: KETOROLAC 15 MG/ML 1 ML VIAL IVP PRN (13:55)
--- NOTE | 2024-05-07 13:59 | P.PN ---
Subjective Progress Note Date: 05/07/24 Principal diagnosis: Status post L4-S1 decompression and fusion Patient evaluated today at bedside, he is laying in his hospital bed. Patient is having increasing pain today. He did work with physical therapy, this is very minimal he was able to get to the chair. He has been utilizing a walker for ambulation. Urinary catheter remains in place. The drain is putting out a moderate bloody serosanguineous fluid. Patient feels that the numbness in the lower extremities is improving. He denies headaches, headedness, chest pain or shortness of breath Objective - Vital Signs Vital signs: Vital Signs Temp 98.2 F 05/07/24 06:54 Pulse 83 05/07/24 07:35 Resp 15 05/07/24 07:35 BP 109/68 05/07/24 06:54 Pulse Ox 94 L 05/07/24 06:54 FiO2 Intake & Output 05/06/24 05/07/24 05/07/24 18:59 06:59 18:59 Intake Total 2552 Output Total 2865 4020 Balance -313 -4020 Weight 123.38 kg 123.38 kg Intake: IV 2302 Oral 250 Output: Drainage 195 Right Anterior Back 195 Urine 2450 3825 Estimated Blood Loss 415 Other: Voiding Method Indwelling Catheter Indwelling Catheter - Exam Gen: AOx3, NAD VSS stable at this time Integument: Postop dressing is in good position condition Palpation: Mild tenderness with palpation of the lower lumbar spine ROM: Full range of motion all major muscle groups of the bilateral upper and lower extremities Sensory Exam: Senory exam to light touch is intact C5-T1 Senosry exam to light touch is intact L2-S1 Motor: 5/5 strength appreciate the bilateral upper extremities with shoulder elevation, shoulder abduction, elbow extension, elbow flexion, wrist extension, wrist flexion, plug drill operator 4/5 strength appreciated the bilateral lower extremities with hip flexion, knee extension, knee flexion, plantarflexion, dorsiflexion, EHL, FHL Reflexes: 2/4 in all UE and LE Negative Arben's bilaterally Negative Babinski bilaterally Negative clonus bilaterally - Labs CBC & Chem 7: 05/07/24 03:39 05/07/24 03:39 Labs: Abnormal Lab Results - Last 24 Hours (Table) 05/07/24 05/07/24 Range/Units 03:39 03:39 WBC 12.20 H (4.50-10.00) X 10*3/uL RBC 3.89 L (4.40-5.60) X 10*6/uL Hgb 11.9 L (13.0-17.0) g/dL Hct 35.6 L (39.6-50.0) % Neutrophils # 9.46 H (1.80-7.70) X 10*3/uL Eosinophils # 0.01 L (0.04-0.35) X 10*3/uL Anion Gap 12.70 H (4.00-12.00) mmol/L BUN/Creatinine Ratio 10.89 L (12.00-20.00) Ratio Calcium 8.4 L (8.7-10.3) mg/dL Assessment and Plan Assessment: Postoperative day #1 status post L4-S1 posterior lateral decompression and fusion Plan: Pain control, I did adjust oral medications. I also added Toradol 15 mg IV every 6 hours. Advised patient to try to hold off on taking the Dilaudid is much as possible DVT prophylaxis, aspirin 81 mg daily Wound care, monitor surgical dressing. Plan for dressing change and possible drain removal on 05/08/2024 Weight-bear as tolerated, utilize walker at all times. No bending, lifting or twisting PT/OT recommendations Encourage incentive spirometer Medical recommendations appreciated Discharge planning: Will continue to follow during hospital stay, plan for discharge to home with home health care in the next 24-48 hours Time with Patient: Less than 30
[2024-05-07] MEDS: CYCLOBENZAPRINE 5 MG TAB PO PRN (21:04)
[2024-05-08] MEDS: oxyCODONE-APAP 7.5-325MG 1 EACH TAB PO PRN (07:52)
[2024-05-08] MEDS: SENNOSIDES-DOCUSATE SODIUM 1 EACH TAB PO SCH (07:52)
[2024-05-08 09:24] LABS: Blood Urea Nitrogen 9.9 mg/dL (9.0-27.0); Calcium 8.5 mg/dL (8.7-10.3); Carbon Dioxide 26.2 mmol/L (21.6-31.8); Chloride 99 mmol/L (96-109); Glucose 89 mg/dL (70-110); Potassium 4.1 mmol/L (3.5-5.5); Sodium 136 mmol/L (135-145)
[2024-05-08 09:49] LABS: HCT 37.5 % (39.6-50.0); HGB 11.9 g/dL (13.0-17.0); MCHC 31.7 g/dL (32.0-37.0); MCV 94.5 FL (80.0-97.0); Mean Platelet Volume 10.6 FL (9.5-12.2); NRBC Per 100 WBC 0 X 10*3/uL (0.00-0.01); Platelet Count 193 X 10*3/uL (140-440); RBC 3.97 X 10*6/uL (4.40-5.60); RDW 11.7 % (11.5-14.5); WBC 14.84 X 10*3/uL (4.50-10.00)
--- NOTE | 2024-05-08 09:55 | P.PN ---
Subjective Progress Note Date: 05/08/24 Patient is a 44-year-old male with history of chronic low back pain with radiculopathy, depression/anxiety presenting for elective L4-S1 decompression and fusion. Sound physicians consulted for medical management. Currently temperature is 97.5, pulse 92, respiratory rate 16, blood pressure 141/86, saturating 100% on room air. POC glucose was 92. Patient denies any chest pain, shortness of breath, abdominal pain, nausea, vomiting. Has a Gallagher catheter in place. Patient denies any alcohol use, smoking, or illicit drug use. Pertinent positives and negatives as discussed in HPI, a complete review of systems was performed and all other systems are negative. CT lumbar spine independently interpreted, postsurgical changes without evidence of immediate postoperative complication. Patient seen and examined at bedside. 03/07/2025 Patient seen and examined at sitting up at bed. No acute events overnight. Continues to have pain at surgical site. Today patient was only able to ambulate to chair which caused intense pain. Continue with pain management per primary team. 03/08/2025 Patient seen and examined at sitting up at bed. No acute events overnight. Pain at surgical site is improving. Continue to encourage ambulation. Gallagher ca theter removed. Labs WBC 14.8, Hgb 11.9, Na 136, glucose 89. Physical exam: Vital signs reviewed General: nontoxic, no distress, appears at stated age Derm: warm, dry, back dressing not observed, drain in place Head: atraumatic, normocephalic, symmetric Eyes: EOMI, no lid lag, anicteric sclera, pupils equal round reactive to light ENT: Nose and ears atraumatic Neck: No thyromegaly, supple Mouth: no lip lesion, mucus membranes moist Cardiovascular: S1S2 reg, no murmur, no edema Lungs: clear to auscultation bilateral, no rhonchi, no rales, no wheeze, no accessory muscle use Abdominal: soft, nontender to palpation, no guarding, no appreciable organomegaly Ext: no gross muscle atrophy, muscle strength muscle strength 5 out of 5 in all 4 extremities, no contractures Neuro: CN II-XII grossly intact Psych: Alert, oriented, appropriate affect Assessment/Plan: Active: Status post L4-S1 decompression and fusion Leukocytosis, anticipated outcome of surgery Mild normocytic anemia, anticipated outcome of surgery -Pain control with scheduled oral Tylenol 650 every 6 hours, Flexeril as needed, gabapentin 300 mg 3 times daily, oral [place] as needed, IV Dilaudid as needed, monitor for sedation -Bowel regimen and DVT prophylaxis per orthospine surgery -PT/OT -CBC and BMP tomorrow Depression/anxiety -Continue clonidine 0.1 nightly, Prozac 20 mg daily Patient is medically optimized and stable for discharge from medicine perspective. Thank you for allowing us to participate in the care of this pleasant patient. Do not hesitate to contact us with questions. Someone can be reached from the [facility] hospitalist group all hours of the day at [phone] or via [employer]. I have seen and evaluated the patient today. Discussed with the resident and agree with the residents finding and plan as documented in the resident's note. Changes highlighted in blue font. Objective - Vital Signs Vital signs: Vital Signs Temp 99.2 F 05/08/24 02:46 Pulse 92 05/08/24 02:46 Resp 17 05/08/24 02:46 BP 97/59 05/08/24 02:46 Pulse Ox 97 05/08/24 02:46 FiO2 Intake & Output 05/07/24 05/08/24 05/08/24 18:59 06:59 18:59 Intake Total 1200 Output Total 100 2445 Balance 1100 -2445 Intake: Oral 1200 Output: Drainage 100 20 Right Anterior Back 100 20 Urine 2425 Other: Voiding Method Indwelling Catheter - Labs CBC & Chem 7: 05/08/24 03:58 05/08/24 03:58 Labs: Abnormal Lab Results - Last 24 Hours (Table) 05/07/24 05/07/24 Range/Units 03:39 03:39 WBC 12.20 H (4.50-10.00) X 10*3/uL RBC 3.89 L (4.40-5.60) X 10*6/uL Hgb 11.9 L (13.0-17.0) g/dL Hct 35.6 L (39.6-50.0) % Neutrophils # 9.46 H (1.80-7.70) X 10*3/uL Eosinophils # 0.01 L (0.04-0.35) X 10*3/uL Anion Gap 12.70 H (4.00-12.00) mmol/L BUN/Creatinine Ratio 10.89 L (12.00-20.00) Ratio Calcium 8.4 L (8.7-10.3) mg/dL
[2024-05-08 11:41] LABS: Basophils # (A) 0.05 X 10*3/uL (0.00-0.10); Basophils % (A) 0.3 %; Eosinophils # (A) 0.05 X 10*3/uL (0.04-0.35); Eosinophils % (A) 0.3 %; Lymphocytes # (A) 2.54 X 10*3/uL (0.90-5.00); Lymphocytes % (A) 17.1 %; Monocytes # (A) 1.58 X 10*3/uL (0.20-1.00); Monocytes % (A) 10.6 %; Neutrophils # (A) 10.54 X 10*3/uL (1.80-7.70); Neutrophils % (A) 71.2 %
--- NOTE | 2024-05-08 13:26 | P.PN ---
Subjective Progress Note Date: 05/08/24 Principal diagnosis: Status post L4-S1 decompression and fusion Patient evaluated today at bedside, he is laying in his hospital chair. Pain seems a little bit better controlled today, the Percocet seems to be helping. We again discussed trying to limit the amount of Dilaudid he is taking at this time. He did a little bit better with physical therapy today. He denies heada ches, headedness, chest pain or shortness of breath Objective - Vital Signs Vital signs: Vital Signs Temp 98.0 F 05/08/24 07:32 Pulse 84 05/08/24 07:32 Resp 16 05/08/24 07:32 BP 108/70 05/08/24 07:32 Pulse Ox 96 05/08/24 07:32 FiO2 Intake & Output 05/07/24 05/08/24 05/08/24 18:59 06:59 18:59 Intake Total 1200 Output Total 100 2445 Balance 1100 -2445 Intake: Oral 1200 Output: Drainage 100 20 Right Anterior Back 100 20 Urine 2425 Other: Voiding Method Indwelling Catheter - Exam Gen: AOx3, NAD VSS stable at this time Integument: Dressing was removed today at bedside along with the Hemovac drain, new dressing was applied. Linda are all in good position and condition Palpation: Mild tenderness with palpation of the lower lumbar spine ROM: Full range of motion all major muscle groups of the bilateral upper and lower extremities Sensory Exam: Senory exam to light touch is intact C5-T1 Senosry exam to light touch is intact L2-S1 Motor: 5/5 strength appreciate the bilateral upper extremities with shoulder elevation, shoulder abduction, elbow extension, elbow flexion, wrist extension, wrist flexion, desk representative 4/5 strength appreciated the bilateral lower extremities with hip flexion, knee extension, knee flexion, plantarflexion, dorsiflexion, EHL, FHL Reflexes: 2/4 in all UE and LE Negative Arben's bilaterally Negative Babinski bilaterally Negative clonus bilaterally - Labs CBC & Chem 7: 05/08/24 03:58 05/08/24 03:58 Labs: Abnormal Lab Results - Last 24 Hours (Table) 05/08/24 05/08/24 Range/Units 03:58 03:58 WBC 14.84 H (4.50-10.00) X 10*3/uL RBC 3.97 L (4.40-5.60) X 10*6/uL Hgb 11.9 L (13.0-17.0) g/dL Hct 37.5 L (39.6-50.0) % MCHC 31.7 L (32.0-37.0) g/dL Immature Gran # 0.08 H (0.00-0.04) X 10*3/uL Neutrophils # 10.54 H (1.80-7.70) X 10*3/uL Monocytes # 1.58 H (0.20-1.00) X 10*3/uL BUN/Creatinine Ratio 11.00 L (12.00-20.00) Ratio Calcium 8.5 L (8.7-10.3) mg/dL Assessment and Plan Assessment: Postoperative day #2 status post L4-S1 posterior lateral decompression and fusion Plan: Pain control, try to limit IV Dilaudid at this time. Okay to use the Toradol and oral pain medication DVT prophylaxis, aspirin 81 mg daily Wound care, monitor surgical dressing Weight-bear as tolerated, utilize walker at all times. No bending, lifting or twisting PT/OT recommendations Encourage incentive spirometer Medical recommendations appreciated Discharge planning: Anticipate discharge to home with home care in the next 24- 48 hours Time with Patient: Less than 30
[2024-05-08] MEDS: HYDROmorphone 1 MG/ML 1 ML SYRINGE IVP PRN (15:44)
[2024-05-08] MEDS: CALCIUM CARBONATE 500 MG CHEWABLE PO PRN (16:55)
[2024-05-09 10:43] LABS: BUN/Creat Ratio 12.75 Ratio (12.00-20.00); Blood Urea Nitrogen 10.2 mg/dL (9.0-27.0); Carbon Dioxide 22.3 mmol/L (21.6-31.8); Chloride 98 mmol/L (96-109); Glucose 97 mg/dL (70-110); Potassium 4.3 mmol/L (3.5-5.5); Sodium 134 mmol/L (135-145)
[2024-05-09 10:44] LABS: Calcium 8.4 mg/dL (8.7-10.3)
[2024-05-09 10:52] LABS: Basophils # (A) 0.05 X 10*3/uL (0.00-0.10); Basophils % (A) 0.4 %; Eosinophils # (A) 0.08 X 10*3/uL (0.04-0.35); Eosinophils % (A) 0.6 %; HGB 12.6 g/dL (13.0-17.0); Lymphocytes # (A) 1.92 X 10*3/uL (0.90-5.00); Lymphocytes % (A) 13.4 %; MCH 30.5 pg (27.0-32.0); MCHC 34.1 g/dL (32.0-37.0); MCV 89.6 FL (80.0-97.0); Mean Platelet Volume 10.3 FL (9.5-12.2); Monocytes # (A) 1.36 X 10*3/uL (0.20-1.00); Monocytes % (A) 9.5 %; NRBC Per 100 WBC 0 X 10*3/uL (0.00-0.01); Neutrophils # (A) 10.79 X 10*3/uL (1.80-7.70); Neutrophils % (A) 75.5 %; Platelet Count 184 X 10*3/uL (140-440); RBC 4.13 X 10*6/uL (4.40-5.60); RDW 11.6 % (11.5-14.5); WBC 14.28 X 10*3/uL (4.50-10.00)
--- NOTE | 2024-05-09 12:25 | P.PN ---
Subjective Progress Note Date: 05/09/24 Principal diagnosis: Status post L4-S1 decompression and fusion Patient evaluated today at bedside, he is laying in his hospital chair. Patient is having breakthrough pain. He was not taking the Percocet as instructed last night, he was requesting the Dilaudid. We again had a long discussion today regarding use of the pain medication to try to get him discharged to home. We will be again adjusting his oral medications today. He denies headaches, headedness, chest pain or shortness of breath Objective - Vital Signs Vital signs: Vital Signs Temp 98.1 F 05/09/24 07:20 Pulse 61 05/09/24 07:20 Resp 17 05/09/24 07:20 BP 110/72 05/09/24 07:20 Pulse Ox 100 05/09/24 07:20 FiO2 Intake & Output 05/08/24 05/09/24 05/09/24 18:59 06:59 18:59 Output Total 600 1500 Balance -600 -1500 Output: Urine 600 1500 Other: Voiding Method Urinal # Voids 1 - Exam Gen: AOx3, NAD VSS stable at this time Integument: Foam dressing is in good position and condition Palpation: Mild tenderness with palpation of the lower lumbar spine ROM: Full range of motion all major muscle groups of the bilateral upper and lower extremities Sensory Exam: Senory exam to light touch is intact C5-T1 Senosry exam to light touch is intact L2-S1 Motor: 5/5 strength appreciate the bilateral upper extremities with shoulder elevation, shoulder abduction, elbow extension, elbow flexion, wrist extension, wrist flexion, engineering technician 4/5 strength appreciated the bilateral lower extremities with hip flexion, knee extension, knee flexion, plantarflexion, dorsiflexion, EHL, FHL Reflexes: 2/4 in all UE and LE Negative Arben's bilaterally Negative Babinski bilaterally Negative clonus bilaterally - Labs CBC & Chem 7: 05/09/24 06:51 05/09/24 06:51 Labs: Abnormal Lab Results - Last 24 Hours (Table) 05/09/24 05/09/24 Range/Units 06:51 06:51 WBC 14.28 H (4.50-10.00) X 10*3/uL RBC 4.13 L (4.40-5.60) X 10*6/uL Hgb 12.6 L (13.0-17.0) g/dL Hct 37.0 L (39.6-50.0) % Immature Gran # 0.08 H (0.00-0.04) X 10*3/uL Neutrophils # 10.79 H (1.80-7.70) X 10*3/uL Monocytes # 1.36 H (0.20-1.00) X 10*3/uL Sodium 134 L (135-145) mmol/L Anion Gap 13.70 H (4.00-12.00) mmol/L Calcium 8.4 L (8.7-10.3) mg/dL Assessment and Plan Assessment: Postoperative day #3 status post L4-S1 posterior lateral decompression and fusion Plan: Pain control, DC'd 1 mg of Dilaudid, 0.5 mg for severe breakthrough pain. Adjusted Percocet to 10 mg every 4 hours. Also added 5 mg of Valium oral at bedtime to help with sleep DVT prophylaxis, aspirin 81 mg daily Wound care, monitor surgical dressing Weight-bear as tolerated, utilize walker at all times. No bending, lifting or twisting PT/OT recommendations Encourage incentive spirometer Medical recommendations appreciated Discharge planning: Planning for discharge to home on 05/10/2024 Time with Patient: Less than 30
--- NOTE | 2024-05-09 14:19 | P.PN ---
Subjective Progress Note Date: 05/09/24 No new complaints. Ongoing back pain, anticipating working with PT soon. Otherwise medically stable. Gen: In NAD, non-toxic HEENT: normocephalic, atraumatic, hearing acuity is intant, mucous membranes moist CVS: perfusing all extremities well, no pitting edema, Respiratory: symmetric chest expansion, no accessory muscle use, GI: soft, NTTP, ND, : no suprapubic tenderness, no CVA tenderness MSK/Derm: no rashes, cyanosis Neuro: CN II-XII intact, no motor weakness, Psych: cooperative, euthymic mood, judgment and insight is intact Hospital course: Patient is a 44-year-old male with history of chronic low back pain with radiculopathy, depression/anxiety presenting for elective L4-S1 decompression and fusion. Sound physicians consulted for medical management. Currently temperature is 97.5, pulse 92, respiratory rate 16, blood pressure 141/86, saturating 100% on room air. POC glucose was 92. Patient denies any chest pain, shortness of breath, abdominal pain, nausea, vomiting. Has a Gallagher catheter in place. Patient denies any alcohol use, smoking, or illicit drug use. Pertinent positives and negatives as discussed in HPI, a complete review of systems was performed and all other systems are negative. CT lumbar spine independently interpreted, postsurgical changes without evidence of immediate postoperative complication. Patient seen and examined at bedside. 03/07/2025 Patient seen and examined at sitting up at bed. No acute events overnight. Continues to have pain at surgical site. Today patient was only able to ambulate to chair which caused intense pain. Continue with pain management per primary team. 03/08/2025 Patient seen and examined at sitting up at bed. No acute events overnight. Pain at surgical site is improving. Continue to encourage ambulation. Gallagher catheter removed. Labs WBC 14.8, Hgb 11.9, Na 136, glucose 89. 03/09 As above. Assessment/Plan: Active: Status post L4-S1 decompression and fusion Leukocytosis, anticipated outcome of surgery Mild normocytic anemia, anticipated outcome of surgery -Pain control with scheduled oral Tylenol 650 every 6 hours, Flexeril as needed, gabapentin 300 mg 3 times daily, oral [place] as needed, IV Dilaudid as needed, monitor for sedation -Bowel regimen and DVT prophylaxis per orthospine surgery -PT/OT -CBC and BMP tomorrow Depression/anxiety -Continue clonidine 0.1 nightly, Prozac 20 mg daily Patient is medically optimized and stable for discharge from medicine perspective. Thank you for allowing us to participate in the care of this pleasant patient. Do not hesitate to contact us with questions. Someone can be reached from the [facility] hospitalist group all hours of the day at [phone] or via [employer]. Objective - Vital Signs Vital signs: Vital Signs Temp 98.1 F 05/09/24 07:20 Pulse 61 05/09/24 07:20 Resp 17 05/09/24 07:20 BP 110/72 05/09/24 07:20 Pulse Ox 100 05/09/24 07:20 FiO2 Intake & Output 05/08/24 05/09/24 05/09/24 18:59 06:59 18:59 Output Total 600 1500 Balance -600 -1500 Output: Urine 600 1500 Other: Voiding Method Urinal # Voids 1 - Labs CBC & Chem 7: 05/09/24 06:51 05/09/24 06:51 Labs: Abnormal Lab Results - Last 24 Hours (Table) 05/09/24 05/09/24 Range/Units 06:51 06:51 WBC 14.28 H (4.50-10.00) X 10*3/uL RBC 4.13 L (4.40-5.60) X 10*6/uL Hgb 12.6 L (13.0-17.0) g/dL Hct 37.0 L (39.6-50.0) % Immature Gran # 0.08 H (0.00-0.04) X 10*3/uL Neutrophils # 10.79 H (1.80-7.70) X 10*3/uL Monocytes # 1.36 H (0.20-1.00) X 10*3/uL Sodium 134 L (135-145) mmol/L Anion Gap 13.70 H (4.00-12.00) mmol/L Calcium 8.4 L (8.7-10.3) mg/dL
[2024-05-09] MEDS: oxyCODONE-APAP 10-325MG 1 EACH TAB PO PRN (16:24)
[2024-05-09] MEDS: diazePAM 5 MG TAB PO PRN (20:39)
[2024-05-10 08:20] VITALS: BP 119/75; PULSE 74; RESP 18; TEMP 98.2
[2024-05-10 09:03] LABS: Blood Urea Nitrogen 12.8 mg/dL (9.0-27.0); Calcium 8.5 mg/dL (8.7-10.3); Chloride 96 mmol/L (96-109); Glucose 89 mg/dL (70-110); Potassium 4.5 mmol/L (3.5-5.5); Sodium 135 mmol/L (135-145)
--- NOTE | 2024-05-10 09:37 | P.PN ---
Subjective Progress Note Date: 05/10/24 No new complaints. Ongoing back pain improving, continue with physical therapy. Saturated several wound dressings today. Otherwise medically stable. Gen: In NAD, non-toxic HEENT: normocephalic, atraumatic, hearing acuity is intant, mucous membranes moist CVS: perfusing all extremities well, no pitting edema, Respiratory: symmetric chest expansion, no accessory muscle use, GI: soft, NTTP, ND, : no suprapubic tenderness, no CVA tenderness MSK/Derm: no rashes, cyanosis, sterile dressing on lumbar spine Neuro: CN II-XII intact, no motor weakness, Psych: cooperative, euthymic mood, judgment and insight is intact Hospital course: Patient is a 44-year-old male with history of chronic low back pain with radiculopathy, depression/anxiety presenting for elective L4-S1 decompression and fusion. Sound physicians consulted for medical management. Currently temperature is 97.5, pulse 92, respiratory rate 16, blood pressure 141/86, saturating 100% on room air. POC glucose was 92. Patient denies any chest pain, shortness of breath, abdominal pain, nausea, vomiting. Has a Gallagher catheter in place. Patient denies any alcohol use, smoking, or illicit drug use. Pertinent positives and negatives as discussed in HPI, a complete review of systems was performed and all other systems are negative. CT lumbar spine independently interpreted, postsurgical changes without evidence of immediate postoperative complication. Patient seen and examined at bedside. 03/07/2025 Patient seen and examined at sitting up at bed. No acute events overnight. Continues to have pain at surgical site. Today patient was only able to ambulate to chair which caused intense pain. Continue with pain management per primary team. 03/08/2025 Patient seen and examined at sitting up at bed. No acute events overnight. Pain at surgical site is improving. Continue to encourage ambulation. Gallagher catheter removed. Labs WBC 14.8, Hgb 11.9, Na 136, glucose 89. 03/09 No new complaints. Ongoing back pain, anticipating working with PT soon. Otherwise medically stable. 03/10 As above Assessment/Plan: Active: Status post L4-S1 decompression and fusion Leukocytosis, anticipated outcome of surgery Mild normocytic anemia, anticipated outcome of surgery -Pain control with scheduled oral Tylenol 650 every 6 hours, Flexeril as needed, gabapentin 300 mg 3 times daily, oral [place] as needed, IV Dilaudid as needed, monitor for sedation -Bowel regimen and DVT prophylaxis per orthospine surgery -PT/OT Depression/anxiety -Continue clonidine 0.1 nightly, Prozac 20 mg daily Patient is medically optimized and stable for discharge from medicine perspective. Thank you for allowing us to participate in the care of this pleasant patient. Do not hesitate to contact us with questions. Someone can be reached from the [facility] hospitalist group all hours of the day at [phone] or via [email or web address]. I have seen and evaluated the patient today. Discussed with the resident and agree with the residents finding and plan as documented in the resident's note. Changes highlighted in blue font. Objective - Vital Signs Vital signs: Vital Signs Temp 98.1 F 05/10/24 02:00 Pulse 81 05/10/24 02:00 Resp 17 05/10/24 02:00 BP 103/62 05/10/24 02:00 Pulse Ox 97 05/10/24 02:00 FiO2 Intake & Output 05/09/24 05/10/24 05/10/24 18:59 06:59 18:59 Output Total 600 Balance -600 Output: Urine 600 Other: Voiding Method Urinal # Voids 5 - Labs CBC & Chem 7: 05/10/24 02:22 05/10/24 02:22 Labs: Abnormal Lab Results - Last 24 Hours (Table) 05/09/24 05/09/24 Range/Units 06:51 06:51 WBC 14.28 H (4.50-10.00) X 10*3/uL RBC 4.13 L (4.40-5.60) X 10*6/uL Hgb 12.6 L (13.0-17.0) g/dL Hct 37.0 L (39.6-50.0) % Immature Gran # 0.08 H (0.00-0.04) X 10*3/uL Neutrophils # 10.79 H (1.80-7.70) X 10*3/uL Monocytes # 1.36 H (0.20-1.00) X 10*3/uL Sodium 134 L (135-145) mmol/L Anion Gap 13.70 H (4.00-12.00) mmol/L Calcium 8.4 L (8.7-10.3) mg/dL
[2024-05-10 10:17] LABS: Basophils # (A) 0.07 X 10*3/uL (0.00-0.10); Basophils % (A) 0.6 %; Eosinophils # (A) 0.33 X 10*3/uL (0.04-0.35); Eosinophils % (A) 2.7 %; HCT 36.3 % (39.6-50.0); HGB 11.8 g/dL (13.0-17.0); Lymphocytes # (A) 2.32 X 10*3/uL (0.90-5.00); Lymphocytes % (A) 18.8 %; MCH 30.6 pg (27.0-32.0); MCHC 32.5 g/dL (32.0-37.0); Monocytes # (A) 1.12 X 10*3/uL (0.20-1.00); Monocytes % (A) 9.1 %; NRBC Per 100 WBC 0 X 10*3/uL (0.00-0.01); Neutrophils # (A) 8.43 X 10*3/uL (1.80-7.70); Neutrophils % (A) 68.5 %; Platelet Count 220 X 10*3/uL (140-440); RBC 3.86 X 10*6/uL (4.40-5.60); RDW 11.8 % (11.5-14.5); WBC 12.31 X 10*3/uL (4.50-10.00)
--- NOTE | 2024-05-10 10:55 | P.PN ---
Subjective Progress Note Date: 05/10/24 Principal diagnosis: Status post L4-S1 decompression and fusion Patient evaluated today at bedside, he is laying in his hospital chair. Patient's pain control seems better with the Percocet 10 mg, he also felt a lot better sleeping last night with the added Valium. He has not used Dilaudid in about 24 hours. He denies headaches, headedness, chest pain or shortness of breath Objective - Vital Signs Vital signs: Vital Signs Temp 98.2 F 05/10/24 08:00 Pulse 74 05/10/24 08:00 Resp 18 05/10/24 08:00 BP 119/75 05/10/24 08:00 Pulse Ox 98 05/10/24 08:00 FiO2 Intake & Output 05/09/24 05/10/24 05/10/24 18:59 06:59 18:59 Output Total 600 Balance -600 Output: Urine 600 Other: Voiding Method Urinal # Voids 5 - Exam Gen: AOx3, NAD VSS stable at this time Integument: Bloody serosanguineous drainage noted at the distal end of the incision, compressive dressing was placed today at bedside. Palpation: Mild tenderness with palpation of the lower lumbar spine ROM: Full range of motion all major muscle groups of the bilateral upper and lower extremities Sensory Exam: Senory exam to light touch is intact C5-T1 Senosry exam to light touch is intact L2-S1 Motor: 5/5 strength appreciate the bilateral upper extremities with shoulder elevation, shoulder abduction, elbow extension, elbow flexion, wrist extension, wrist flexion, vat tender 4/5 strength appreciated the bilateral lower extremities with hip flexion, knee extension, knee flexion, plantarflexion, dorsiflexion, EHL, FHL Reflexes: 2/4 in all UE and LE Negative Arben's bilaterally Negative Babinski bilaterally Negative clonus bilaterally - Labs CBC & Chem 7: 05/10/24 02:22 05/10/24 02:22 Labs: Abnormal Lab Results - Last 24 Hours (Table) 05/10/24 05/10/24 Range/Units 02:22 02:22 WBC 12.31 H (4.50-10.00) X 10*3/uL RBC 3.86 L (4.40-5.60) X 10*6/uL Hgb 11.8 L (13.0-17.0) g/dL Hct 36.3 L (39.6-50.0) % Neutrophils # 8.43 H (1.80-7.70) X 10*3/uL Monocytes # 1.12 H (0.20-1.00) X 10*3/uL Anion Gap 13.00 H (4.00-12.00) mmol/L Calcium 8.5 L (8.7-10.3) mg/dL Assessment and Plan Assessment: Postoperative day #4 status post L4-S1 posterior lateral decompression and fusion Plan: Pain control, plan for discharge home on Percocet 10 mg / 325 mg, Flexeril 10 mg, gabapentin 600 mg. Valium 5 mg also be used at night to aid in sleep DVT prophylaxis, aspirin 81 mg daily Wound care, compressive dressing was placed today, patient can leave this in place over the next 24-48 hours. Patient will be sent home with foam dressings to utilize. Patient can begin showering directly over the incision after removal of the compressive dressing. No pools, hot tubs or soaking of the incision Home nursing to monitor incision Weight-bear as tolerated, utilize walker at all times. No bending, lifting or twisting PT/OT recommendations Encourage incentive spirometer Medical recommendations appreciated Discharge planning: Stable for discharge home today Time with Patient: Less than 30
--- NOTE | 2024-05-10 10:58 | P.DS ---
Providers Date of admission: 05/06/24 11:03 Expected date of discharge: 05/10/24 Attending physician: Ronak Castillo DO Consults: 05/06/24 15:37 Consult Physician Routine Consulting Provider: Abhinav Kumari Consult Reason/Comments: Medical management Do you want consulting provider notified?: Yes [facility] Course: Date of admission: 05/06/2024 Date of discharge: 05/10/2024 Admission diagnosis: Status post L4-S1 posterior lateral decompression and fusion Discharge diagnosis: Same Attending physician: Dr. Castillo Surgical procedures: L4-S1 posterior lateral decompression and fusion Brief history: Patient is a 44-year-old male with a history of low back pain, bilateral lower extremity weakness along with radiculopathy.. At this point patient has failed conservative treatment measures and has opted to proceed with a elective L4-S1 posterior lateral decompression and fusion. Hospital course: Details of patient's surgery can be found in operative report. Patient tolerated the procedure well and was subsequently transported to orthopedic floor. Patient's orthopeidc and medical care was provided daily. Patient had daily laboratory tests performed for evaluation of overall blood counts. Patient had daily physical therapy to include strengthening range of motion as well as education with walker ambulation. Patient was treated with aspirin for their postoperative DVT prophylaxis during their inpatient stay. Patient was noted to have a relatively uneventful postoperative course. Patient reported satisfactory pain control with oral pain medications by postoperative day 3. Patient showed satisfactory progress with physical therapy. Patient moved steadily through the program and had no difficulty meeting the goals by postoperative day 4. Given patient's otherwise satisfactory course and having met physical therapy goals, plan is to discharge patient [home] on postoperative day 4. Discharge condition/disposition: Patient will be discharged [home] in stable condition. Discharge medications: Instructions are given on resumption of patient's normal daily medications per primary care recommendation, in addition patient will be prescribed Percocet 10 mg / 325 mg, Flexeril 10 mg, gabapentin 600 mg, Valium 5 mg, Duricef 500 mg, senna S, MiraLAX 17 g. Spine Discharge and Recovery Instructions Medications: See medication list All medication refills should be obtained through your primary care doctor or your clinic spine surgeon. Please discuss prescription refills at your follow up appointment. Do not call the hospital for medication refills. Dressing: Leave your dressing in place for a total of 5 days post operatively. Then you may remove your dressing and leave open to air. Keep the area clean and if not able to keep area clean, then cover with sterile gauze and tape. Showering: You may shower 3 days after your procedure allowing soap and water to run over incision. Do not scrub. Do not soak. Blot dry. Follow up: Please confirm a follow up appointment with your surgeon 3 weeks post operatively. Please make an appointment to follow up with your PCP in 1-2 weeks after surgery for evaluation '3 phase, 3-week plan' POST OP WEEKS 1-3 1. Lifting/carrying/pushing/pulling limited to less than 5 pounds. 2. Do not sit for longer than 15 minutes at one time. Get up and walk around. Prolonged sitting is NOT advised. If you lay down, see if you can tolerate laying down on you front (belly side) 3. Walk for periods of 15 minutes = 1 mile but no longer; do it multiple times times each day. 4. Ice your low back after activity. POST OP WEEKS 3-6 1. Lifting limited to less than 20 pounds. 2. Do not sit for longer than 30 minutes at a time. Frequently change positions. Use a sit-to stand workstation or take frequent breaks from sitting if you have returned to work. 3. Walk for 30 minutes each day. If possible, do these three or more times a day POST OP WEEKS 6+ At your 6-week appointment we will give you a physical therapy referral to focus on a core stabilization and strengthening program. You should also work on leg & buttock strengthening, hamstring & quadriceps stretching, and continue a low impact aerobic activity program such as swimming, walking, or riding a stationary bicycle. During the initial 6 weeks after your surgery, you are at the highest risk of re-injuring your spine. You should generally avoid BLT's (bending, lifting and twisting combination motions) and follow the above guidelines to reduce the chance of reinjury. You can anticipate post op appointments in our office at approximately 3 weeks and 6 weeks after your surgery. INCISION CARE: If your incision is not draining you do NOT need to cover it with a dressing. Keep your incision clean, dry and intact. In most cases, we apply skin glue, caroline or sutures to the incision at the time of surgery. This will be like a crust or have the appearance of a scab and will fall off in time on its own. The stitches or caroline need to be removed at 3 weeks post op appointment. You may begin to shower 3 days after surgery (this allows the glue to kaminski well). However, please avoid scrubbing the incision site or peeling off any of the skin glue. This will ensure optimal healing of your incision. Also, during this time avoid soaking the incision area in water - this includes swimming pools, hot tubs or baths. No ointments, lotions or oils on the incision until your surgeon allows. Leave caroline, sutures or glue in place. Neurological dysfunction that comes on suddenly can also be a sign of a stroke. Below some common symptoms of a stroke are listed: B - balance difficulty such as sudden onset walking or leaning to one side - NEW E - eye problem such as sudden double vision or trouble seeing on one side - NEW F - Facial weakness or numbness on one side - NEW A - Arm or leg weakness or numbness on one side - NEW S - Slurred speech or difficulty with word finding - NEW T - Time is BRAIN! Call 911 as soon as you recognize these symptoms Diet: Consume a regular diet rich in vegetables and lean protein such as chicken or fish. You should consume in a ratio of approximately 20% fats|40% carbohydrates|40%protein. Vegetables, sweet potatoes, brown rice or quinoa are examples of good carbohydrates. Chips, white bread, cookies and sweets/sugar are examples of bad carbohydrates. Limit your bad carbs, go wild with good carbs. "Life's Simple 7" Guidelines as per [employer] These will help you reclaim your life after surgery and mortician helper in your recovery, keeping in mind your restrictions. (1) Get Active. Physical activity can help people lose weight, control high blood pressure and cholesterol, feel emotionally better, and sleep better. (2) Control Cholesterol. Avoid a diet high in saturated fat, trans fat, & cholesterol. Limit whole milk & cream, ice cream, butter, egg yolks, processed meats (like sausage and hot dogs), and fatty meats. Choose healthy foods that are low in saturated fat, trans fat and cholesterol which include: Fruits and vegetables, fiber rich grain products (like whole grain pasta and brown rice), lean meat such as chicken, fish, nuts, seeds, and legumes. (3) Eat Better. Eat small portions. Shop at the grocery with a list and do not stray from it. Tips for a healthy diet include: Limit sodium intake to less than 1500mg daily, avoid prepackaged, processed, and fast foods, choose a diet rich in fruits, vegetables, and whole grain, high fiber foods, and limit saturated & cholesterol in your diet. (4) Manage Blood Pressure. If you have high blood pressure, you should have a cuff at home so that you can check your blood pressure regularly. Be sure you have a good cuff. An arm one is generally better than a wrist one. Bring the cuff to a doctor's appointment to validate that the measurements that your cuff are taking are accurate. Take your blood pressure twice daily when you are sitting down and relaxing. Record the numbers in a log and bring this log with you to your doctors' appointments. (5) Lose Weight if your BMI is above 25. A healthy BMI is between 19-25. To calculate Your BMI, you may use a Standard BMI Calculator on the NIH BMI website: <www.nhlbi.nih.gov/guidelines/obesity/BMI/bmicalc.htm>. Weigh oneself daily. If you are overweight, set a goal to lose weight. A pound a week loss if needed is a good target. (6) Reduce Blood Sugar. Limit foods and liquids with "added sugars." (Added sugars include sucrose, fructose, glucose, maltose, dextrose, high fructose corn syrup, corn syrup, concentrated fruit juice and honey). (7) Stop Smoking. If you smoke, quitting smoking is one of the best things that you can do for your health. Smoking increases your risk of heart attack, stroke, and peripheral vascular disease, which is a build-up of plaque in your arteries. Please discard all the cigarettes and lighters in your house. Have a plan for what you will do when you have the urge to smoke. Direct and second- hand smoke shortens your life as well as the lives of your family, friends and others around you. For your health and the health of those around you, please consider quitting! Proper Bending Body Mechanics: Maintain a wide stance with one foot slightly in front of the other. Keep your back straight. Bend utilizing the strength in your hips and knees. Do not bend at the waist. Maintain the lifted object at your waist-level close to your body. Avoid lifting weight that causes immediately pain or pain anywhere in the body afterwards. Smoking/Nicotine If there was ever one thing that you could do to increase your overall health, decrease your risk of cardiovascular problems by about 39% the second you make the choice, it is to STOP SMOKING. Your body's most instant gratification is the second you stop smoking. We have all heard the studies, read the articles but it is true, smoking is extremely bad for your overall health, and moreover it is detrimental to your bone health. Nicotine, IN ANY FORM, kills bone cells, prevents your body from healing fractures, and significantly prolongs healing after surgery. In spine surgery specifically, it increases your risk of not healing your bones to create a fusion and increases your risk of having a revision surgery due to this up to 60%. I know it is hard. I know it feels impossible. But there are ways. Take control of your life. We are here to help you through it. And when you are ready, ask us and we can direct you to help if you desire. Use the START Plan to Quit Smoking (please visit the Helpguide.org website listed below for more information): S = Set a quit date. Choose a date within the next 2 weeks, so you have enough time to prepare without losing your motivation to quit. If you mainly smoke at work, quit on the weekend, so you have a few days to adjust to the change. T = Tell family, friends, and co-workers that you plan to quit. Let your friends and family in on your plan to quit smoking and tell them you need their support and encouragement to stop. Look for a quit yung who wants to stop smoking as well. You can help each other get through the rough times. A = Anticipate and plan for the challenges you'll face while quitting. Most people who begin smoking again do so within the first 3 months. You can help yourself make it through by preparing ahead for common challenges, such as nicotine withdrawal and cigarette cravings. R = Remove cigarettes and other tobacco products from your home, car, and work. Throw away all your cigarettes (no emergency pack!), lighters, ashtrays, and matches. Wash your clothes and freshen up anything that smells like smoke. Shampoo your car, clean your drapes and carpet, and steam your furniture. T = Talk to your doctor about getting help to quit. Your doctor can prescribe medication to help with withdrawal and suggest other alternatives. If you can't see a doctor, you can get many products over the counter at your local pharmacy or grocery store, including the nicotine patch, nicotine lozenges, and nicotine gum. Resources for Quitting Smoking: <https://www.[place].gov/documents/[facility]/Quit_Tobacco_Resources_for_patients_313 480_7.pdf> Supplementation: Take recommended dosages of Vitamin D and Calcium to help fortify your bones and help them to heal. See your health maintenance packet for dosages and recommended levels. DVT/VTE prophylaxis: You will be given compression stockings from the hospital. Wear these daily for the first two weeks after surgery. You may take them off at night. You may be prescribed a medication to help thin your blood. Take this as directed. If you are not prescribed this medication, early and frequent ambulation has been shown to be the best prophylaxis to deep vein thrombosis and sequelae related to this event. Procedures: L4-S1 open posterior lateral decompression and fusion Patient Condition at Discharge: Good Plan - Discharge Summary Discharge Rx Participant: Yes New Discharge Prescriptions: New polyethylene glycoL 3350 [Miralax] 17 gm PO DAILY PRN #21 packet PRN Reason: Constipation oxyCODONE HCL/ACETAMINOPHEN [Percocet 10-325 mg] 1 tab PO Q4HR PRN 7 Days #42 tab PRN Reason: Pain Sennosides/Docusate Sodium [Senna-S 8.6-50 mg Tablet] 2 each PO DAILY PRN #30 tablet PRN Reason: Constipation diazePAM [Valium] 5 mg PO HS PRN #14 tab PRN Reason: Anxiety cefaDROXiL [Duricef] 500 mg PO Q12HR 5 Days #10 cap Cyclobenzaprine [Flexeril] 10 mg PO TID PRN #30 tab PRN Reason: Muscle Spasm Gabapentin 600 mg PO TID 20 Days #60 tab Continue Multivitamins, Thera [Multivitamin (formulary)] 1 tab PO DAILY FLUoxetine HCL [PROzac] 20 mg PO QAM Gabapentin 600 mg PO HS Gabapentin 300 mg PO TID cloNIDine HCL [Catapres] 0.1 - 0.2 mg PO HS No Action Greens Supplement 1 dose PO DAILY Discharge Medication List cloNIDine HCL [Catapres] 0.1 - 0.2 mg PO HS 03/24/23 [History] FLUoxetine HCL [PROzac] 20 mg PO QAM 05/01/24 [History] Gabapentin 300 mg PO TID 05/01/24 [History] Gabapentin 600 mg PO HS 05/01/24 [History] Greens Supplement 1 dose PO DAILY 05/01/24 [History] Multivitamins, Thera [Multivitamin (formulary)] 1 tab PO DAILY 05/01/24 [History] Cyclobenzaprine [Flexeril] 10 mg PO TID PRN #30 tab 05/10/24 [Rx] Gabapentin 600 mg PO TID 20 Days #60 tab 05/10/24 [Rx] Sennosides/Docusate Sodium [Senna-S 8.6-50 mg Tablet] 2 each PO DAILY PRN #30 tablet 05/10/24 [Rx] cefaDROXiL [Duricef] 500 mg PO Q12HR 5 Days #10 cap 05/10/24 [Rx] diazePAM [Valium] 5 mg PO HS PRN #14 tab 05/10/24 [Rx] oxyCODONE HCL/ACETAMINOPHEN [Percocet 10-325 mg] 1 tab PO Q4HR PRN 7 Days #42 tab 05/10/24 [Rx] polyethylene glycoL 3350 [Miralax] 17 gm PO DAILY PRN #21 packet 05/10/24 [Rx] Follow up Appointment(s)/Referral(s): [facility] [NON-STAFF] - As Needed (jocelin) [facility], [NON-STAFF] - As Needed Ronak Castillo DO [Doctor of Osteopathic Medicine] - 05/22/24 11:15 am Activity/Diet/Wound Care/Special Instructions: Spine Discharge and Recovery Instructions Medications: See medication list All medication refills should be obtained through your primary care doctor or your clinic spine surgeon. Please discuss prescription refills at your follow up appointment. Do not call the hospital for medication refills. Dressing: Leave your dressing in place for a total of 5 days post operatively. Then you may remove your dressing and leave open to air. Keep the area clean and if not able to keep area clean, then cover with sterile gauze and tape. Showering: You may shower 3 days after your procedure allowing soap and water to run over incision. Do not scrub. Do not soak. Blot dry. Follow up: Please confirm a follow up appointment with your surgeon 3 weeks post operatively. Please make an appointment to follow up with your PCP in 1-2 weeks after surgery for evaluation '3 phase, 3-week plan' POST OP WEEKS 1-3 1. Lifting/carrying/pushing/pulling limited to less than 5 pounds. 2. Do not sit for longer than 15 minutes at one time. Get up and walk around. Prolonged sitting is NOT advised. If you lay down, see if you can tolerate laying down on you front (belly side) 3. Walk for periods of 15 minutes = 1 mile but no longer; do it multiple times times each day. 4. Ice your low back after activity. POST OP WEEKS 3-6 1. Lifting limited to less than 20 pounds. 2. Do not sit for longer than 30 minutes at a time. Frequently change positions. Use a sit-to stand workstation or take frequent breaks from sitting if you have returned to work. 3. Walk for 30 minutes each day. If possible, do these three or more times a day POST OP WEEKS 6+ At your 6-week appointment we will give you a physical therapy referral to focus on a core stabilization and strengthening program. You should also work on leg & buttock strengthening, hamstring & quadriceps stretching, and continue a low impact aerobic activity program such as swimming, walking, or riding a stationary bicycle. During the initial 6 weeks after your surgery, you are at the highest risk of re-injuring your spine. You should generally avoid BLT's (bending, lifting and twisting combination motions) and follow the above guidelines to reduce the chance of reinjury. You can anticipate post op appointments in our office at approximately 3 weeks and 6 weeks after your surgery. INCISION CARE: If your incision is not draining you do NOT need to cover it with a dressing. Keep your incision clean, dry and intact. In most cases, we apply skin glue, caroline or sutures to the incision at the time of surgery. This will be like a crust or have the appearance of a scab and will fall off in time on its own. The stitches or caroline need to be removed at 3 weeks post op appointment. You may begin to shower 3 days after surgery (this allows the glue to kaminski well). However, please avoid scrubbing the incision site or peeling off any of the skin glue. This will ensure optimal healing of your incision. Also, during this time avoid soaking the incision area in water - this includes swimming pools, hot tubs or baths. No ointments, lotions or oils on the incision until your surgeon allows. Leave caroline, sutures or glue in place. Neurological dysfunction that comes on suddenly can also be a sign of a stroke. Below some common symptoms of a stroke are listed: B - balance difficulty such as sudden onset walking or leaning to one side - NEW E - eye problem such as sudden double vision or trouble seeing on one side - NEW F - Facial weakness or numbness on one side - NEW A - Arm or leg weakness or numbness on one side - NEW S - Slurred speech or difficulty with word finding - NEW T - Time is BRAIN! Call 911 as soon as you recognize these symptoms Diet: Consume a regular diet rich in vegetables and lean protein such as chicken or fish. You should consume in a ratio of approximately 20% fats|40% carbohydrates|40%protein. Vegetables, sweet potatoes, brown rice or quinoa are examples of good carbohydrates. Chips, white bread, cookies and sweets/sugar are examples of bad carbohydrates. Limit your bad carbs, go wild with good carbs. "Life's Simple 7" Guidelines as per [employer] These will help you reclaim your life after surgery and mortician helper in your recovery, keeping in mind your restrictions. (1) Get Active. Physical activity can help people lose weight, control high blood pressure and cholesterol, feel emotionally better, and sleep better. (2) Control Cholesterol. Avoid a diet high in saturated fat, trans fat, & cholesterol. Limit whole milk & cream, ice cream, butter, egg yolks, processed meats (like sausage and hot dogs), and fatty meats. Choose healthy foods that are low in saturated fat, trans fat and cholesterol which include: Fruits and vegetables, fiber rich grain products (like whole grain pasta and brown rice), lean meat such as chicken, fish, nuts, seeds, and legumes. (3) Eat Better. Eat small portions. Shop at the grocery with a list and do not stray from it. Tips for a healthy diet include: Limit sodium intake to less than 1500mg daily, avoid prepackaged, processed, and fast foods, choose a diet rich in fruits, vegetables, and whole grain, high fiber foods, and limit saturated & cholesterol in your diet. (4) Manage Blood Pressure. If you have high blood pressure, you should have a cuff at home so that you can check your blood pressure regularly. Be sure you have a good cuff. An arm one is generally better than a wrist one. Bring the cuff to a doctor's appointment to validate that the measurements that your cuff are taking are accurate. Take your blood pressure twice daily when you are sitting down and relaxing. Record the numbers in a log and bring this log with you to your doctors' appointments. (5) Lose Weight if your BMI is above 25. A healthy BMI is between 19-25. To calculate Your BMI, you may use a Standard BMI Calculator on the NIH BMI website: <www.nhlbi.nih.gov/guidelines/obesity/BMI/bmicalc.htm>. Weigh oneself daily. If you are overweight, set a goal to lose weight. A pound a week loss if needed is a good target. (6) Reduce Blood Sugar. Limit foods and liquids with "added sugars." (Added sugars include sucrose, fructose, glucose, maltose, dextrose, high fructose corn syrup, corn syrup, concentrated fruit juice and honey). (7) Stop Smoking. If you smoke, quitting smoking is one of the best things that you can do for your health. Smoking increases your risk of heart attack, stroke, and peripheral vascular disease, which is a build-up of plaque in your arteries. Please discard all the cigarettes and lighters in your house. Have a plan for what you will do when you have the urge to smoke. Direct and second- hand smoke shortens your life as well as the lives of your family, friends and others around you. For your health and the health of those around you, please consider quitting! Proper Bending Body Mechanics: Maintain a wide stance with one foot slightly in front of the other. Keep your back straight. Bend utilizing the strength in your hips and knees. Do not bend at the waist. Maintain the lifted object at your waist-level close to your body. Avoid lifting weight that causes immediately pain or pain anywhere in the body afterwards. Smoking/Nicotine If there was ever one thing that you could do to increase your overall health, decrease your risk of cardiovascular problems by about 39% the second you make the choice, it is to STOP SMOKING. Your body's most instant gratification is the second you stop smoking. We have all heard the studies, read the articles but it is true, smoking is extremely bad for your overall health, and moreover it is detrimental to your bone health. Nicotine, IN ANY FORM, kills bone cells, prevents your body from healing fractures, and significantly prolongs healing after surgery. In spine surgery specifically, it increases your risk of not healing your bones to create a fusion and increases your risk of having a revision surgery due to this up to 60%. I know it is hard. I know it feels impossible. But there are ways. Take control of your life. We are here to help you through it. And when you are ready, ask us and we can direct you to help if you desire. Use the START Plan to Quit Smoking (please visit the [employer] website listed below for more information): S = Set a quit date. Choose a date within the next 2 weeks, so you have enough time to prepare w ithout losing your motivation to quit. If you mainly smoke at work, quit on the weekend, so you have a few days to adjust to the change. T = Tell family, friends, and co-workers that you plan to quit. Let your friends and family in on your plan to quit smoking and tell them you need their support and encouragement to stop. Look for a quit yung who wants to stop smoking as well. You can help each other get through the rough times. A = Anticipate and plan for the challenges you'll face while quitting. Most people who begin smoking again do so within the first 3 months. You can help yourself make it through by preparing ahead for common challenges, such as nicotine withdrawal and cigarette cravings. R = Remove cigarettes and other tobacco products from your home, car, and work. Throw away all your cigarettes (no emergency pack!), lighters, ashtrays, and matches. Wash your clothes and freshen up anything that smells like smoke. Shampoo your car, clean your drapes and carpet, and steam your furniture. T = Talk to your doctor about getting help to quit. Your doctor can prescribe medication to help with withdrawal and suggest other alternatives. If you can't see a doctor, you can get many products over the counter at your local pharmacy or grocery store, including the nicotine patch, nicotine lozenges, and nicotine gum. Resources for Quitting Smoking: <https://www.[place].gov/documents/[facility]/Quit_Tobacco_Resources_for_patients_313 480_7.pdf> Supplementation: Take recommended dosages of Vitamin D and Calcium to help fortify your bones and help them to heal. See your health maintenance packet for dosages and recommended levels. DVT/VTE prophylaxis: You will be given compression stockings from the hospital. Wear these daily for the first two weeks after surgery. You may take them off at night. You may be prescribed a medication to help thin your blood. Take this as directed. If you are not prescribed this medication, early and frequent ambulation has been shown to be the best prophylaxis to deep vein thrombosis and sequelae related to this event. Discharge Disposition: HOME WITH HOME HEALTH SERVICES
== END 2024-05-10 13:42 | disposition home health service (06) | DRG 300 ==
LOC: OR 05:34 → 4SSUR 11:02 → OR 11:02 → OBSVTOIN 11:03 → 4SSUR 11:11
PROVIDERS: ADMIT Orthopaedic Surgery; ATTEND Orthopaedic Surgery
PROC: 0SG0071 Fusion of Lumbar Vertebral Joint with Autologous Tissue Substitute, Posterior Approach, Posterior Column, Open Approach (ICD-10-PCS; 2024-05-06)
PROC: 0SG30AJ Fusion of Lumbosacral Joint with Interbody Fusion Device, Posterior Approach, Anterior Column, Open Approach (ICD-10-PCS; 2024-05-06)
PROC: 0SG3071 Fusion of Lumbosacral Joint with Autologous Tissue Substitute, Posterior Approach, Posterior Column, Open Approach (ICD-10-PCS; 2024-05-06)
PROC: 01NB0ZZ Release Lumbar Nerve, Open Approach (ICD-10-PCS; 2024-05-06)
PROC: 01NR0ZZ Release Sacral Nerve, Open Approach (ICD-10-PCS; 2024-05-06)
PROC: 0ST40ZZ Resection of Lumbosacral Disc, Open Approach (ICD-10-PCS; 2024-05-06)
PROC: 0ST20ZZ Resection of Lumbar Vertebral Disc, Open Approach (ICD-10-PCS; 2024-05-06)
PROC: 8E0WXBZ Computer Assisted Procedure of Trunk Region (ICD-10-PCS; 2024-05-06)
PROC: 0SG00AJ Fusion of Lumbar Vertebral Joint with Interbody Fusion Device, Posterior Approach, Anterior Column, Open Approach (ICD-10-PCS; principal; 2024-05-06 07:30)
DX: M47.26 Other spondylosis with radiculopathy, lumbar region (principal); M48.56XA Collapsed vertebra, not elsewhere classified, lumbar region, initial encounter for fracture; F32.A Depression, unspecified; M48.061 Spinal stenosis, lumbar region without neurogenic claudication; M47.27 Other spondylosis with radiculopathy, lumbosacral region; M48.07 Spinal stenosis, lumbosacral region; G47.9 Sleep disorder, unspecified; M43.16 Spondylolisthesis, lumbar region; D72.829 Elevated white blood cell count, unspecified; F41.9 Anxiety disorder, unspecified; D50.0 Iron deficiency anemia secondary to blood loss (chronic); Z87.891 Personal history of nicotine dependence; Z86.79 Personal history of other diseases of the circulatory system; Z79.899 Other long term (current) drug therapy
CPT/HCPCS: 72100; 72131; 80048; 85025

== ENCOUNTER → 2024-06-24 | Outpatient (CLI) | payer OTHER ==
--- NOTE | 2024-06-24 08:25 | CT ---
EXAMINATION TYPE: CT lumbar spine wo con DATE OF EXAM: 06/24/2024 8:12 AM COMPARISON: 05/06/2024 CLINICAL INDICATION: Male, 44 years old with history of L76.34 POSTPROC SEROMA OF SKIN, SUBCU FOLLOWI NG OT; PHH, BACK PAIN TECHNIQUE: Unenhanced CT of the lumbar spine was performed. Bone and soft tissue window settings are submitted as well as coronal and sagittal reconstructions. CT DLP: 1953.[address] CTDI: mGy Automated exposure control for dose reduction was used. FINDINGS: L1-L2: Normal disc space height. No disc herniation protrusion or central stenosis. No facet joint arthropathy. No evidence for foraminal encroachment. L2-L3: Normal disc space height. No disc herniation protrusion or central stenosis. No facet joint arthropathy. No evidence for foraminal encroachment. L3-L4: Mild degenerative disc space narrowing. Posterior disc bulge mild in degree. No evidence for c entral stenosis. Mild left foraminal encroachment. L4-L5: Postoperative changes of decompressive laminectomy and fusion. Limiting streak artifact is not ed. Evaluation of the spinal canal is limited. Postoperative alignment is felt to be stable. L5-S1: Postoperative changes of decompressive laminectomy and fusion. Limiting streak artifact is not ed. Evaluation of the spinal canal is limited. Postoperative alignment is felt to be stable. Subcutaneous seroma is noted measuring 16 cm in craniocaudal dimension by 2.9 cm in AP dimension and extends from L1 to through S1. IMPRESSION: 1. Stable postoperative appearance of the lumbar spine. 2. Subcutaneous seroma as noted. [facility], , 06/24/2024 8:22 AM
== END | disposition home or self-care (01) ==
LOC: RADCTMAIN 07:52
PROVIDERS: ATTEND Orthopaedic Surgery
DX: L76.34 Postprocedural seroma of skin and subcutaneous tissue following other procedure (principal); M54.50 Low back pain, unspecified; Z98.1 Arthrodesis status
CPT/HCPCS: 72131